=== PATIENT | male | born 1930 ===

== ENCOUNTER 2017-04-07 09:54 | Day surgery (SDC) | payer MEDICARE, SELFPAY ==
[2017-04-03 19:13] VITALS: BMI 16.5
[2017-04-07] MEDS ORDERED: Etomidate 20 mg/10ml Inj IV ONE (11:35)
[2017-04-07] MEDS ORDERED: Lactated Ringer's 1,000 ML IV ONE (11:45)
[2017-04-07] MEDS ORDERED: cefTRIAXone (Rocephin) 1 gm Inj IVPB ONE (13:00)
[2017-04-07 15:47] VITALS: RESP 18
[2017-04-07 17:24] VITALS: BP 145/62; PULSE 75; TEMP 98; O2SAT 99
--- NOTE | 2017-04-21 16:15 | OP ---
PROCEDURE DATE: 04/07/2017 PREOPERATIVE DIAGNOSIS: Urethral stricture. POSTOPERATIVE DIAGNOSIS: Urethral stricture, bladder calculi. PROCEDURE PERFORMED: Cystoscopy with urethral dilatation followed by stone basketing of bladder calc rhea. The patient was placed on the operating room table in dorsal lithotomy position. The area of the mirella in was draped and prepped in a sterile manner. Using a #21 cystoscope, I was able to enter into the urethra atraumatically at the level of the bladder neck. There was a significant stricture which I w as able to dilate with the cystoscope. Once I was able to get beyond this area of stricture, I then reevaluated the bladder and there was noted to be multiple bladder calculi within the bladder. I was able to basket these stones out and they would be sent for specimen analysis. Once the bladder was free of all calculi, it appears that their presence were as a consequence of BPH as well as the ureth ral stricture. Once again, the stones were removed. I removed the cystoscope and inserted a #20 two -way Ignacio catheter for dilatation. The patient was taken from the operating room in good condition. Ge Kay MD cc: 48 TT: 04/21/2017 16:14:25 sn
--- NOTE | 2017-04-21 18:10 | DS ---
The patient came in to the hospital for elective evaluation of a urethral stricture. In the operatin g room he was found to have in addition to the stricture bladder calculi. Both issues were resolved at the time of surgery. The patient came back to recovery, had a Ignacio catheter. He will be dischar ged with the leg bag drainage and he will follow up in my office within 5 days of this discharge for removal of catheter. The patient was given a prescription for Cipro to be taken 500 mg twice a day. Ge Kay MD cc: 48 TT: 04/21/2017 18:10:03 hilda
== END 2017-04-07 17:30 | disposition home or self-care (01) ==
LOC: H.OPSURG 09:54
PROVIDERS: ATTEND Urology
DX: N21.0 Calculus in bladder (principal); M19.90 Unspecified osteoarthritis, unspecified site; I25.110 Atherosclerotic heart disease of native coronary artery with unstable angina pectoris; I11.0 Hypertensive heart disease with heart failure; I50.9 Heart failure, unspecified; E11.9 Type 2 diabetes mellitus without complications; E78.5 Hyperlipidemia, unspecified; E11.51 Type 2 diabetes mellitus with diabetic peripheral angiopathy without gangrene; K21.9 Gastro-esophageal reflux disease without esophagitis
CPT/HCPCS: 52281; 82355; 82365; 82948; 88300; J0696; J2765; J3010; J7120

== ENCOUNTER 2017-05-30 09:52 | Emergency (ER) | payer MEDICARE, SELFPAY ==
[2017-05-30 09:52] VITALS: BMI 16.5
[2017-05-30 10:07] VITALS: PULSE 78; RESP 18
[2017-05-30 11:23] LABS: BASO % 0.8 % (0.0-2.0); EOS # 0.1 K/uL (0.0-0.7); EOS % 1.1 % (0.0-4.0); HEMOGLOBIN 11.5 g/dL (12.0-18.0); LYMPH # 0.4 K/uL (1.0-4.3); LYMPH % 7.7 % (20.0-40.0); MEAN CELL VOLUME 83.7 fl (80.0-94.0); MEAN CORPUSCULAR HEMOGLOBIN 27.4 pg (27.0-31.0); MEAN CORPUSCULAR HGB CONC 32.7 g/dL (33.0-37.0); MEAN PLATELET VOLUME 8.2 fl (7.2-11.7); MONO # 0.4 K/uL (0.0-0.8); MONO % 6.4 % (0.0-10.0); NEUT # 4.6 K/uL (1.8-7.0); PLATELET COUNT 195 K/uL (130-400); RBC 4.18 Mil/uL (4.40-5.90); RED CELL DISTRIBUTION WIDTH 13.6 % (11.5-14.5); WHITE BLOOD COUNT 5.5 K/uL (4.8-10.8)
[2017-05-30 12:27] LABS: ANISOCYTOSIS SLIGHT; BANDS 1 % (0-2); EOSINOPHIL 1 % (0-7); LYMPHOCYTE 12 % (20-50); MONOCYTE 7 % (0-10); NEUTROPHIL 79 % (42-75); PLATELET ESTIMATE NORMAL (NORMAL); TOTAL CELLS COUNTED 100
[2017-05-30 12:28] LABS: OVALOCYTES SLIGHT; POIKILOCYTOSIS SLIGHT
[2017-05-30 13:03] LABS: ALB/GLOB RATIO 1.1 (1.0-2.1); ALT/SGPT 34 U/L (21-72); AST/SGOT 26 U/L (17-59); BLOOD UREA NITROGEN 16 mg/dl (9-20); CALCIUM 8.5 mg/dL (8.4-10.2); GFR AFRICAN-AMERICAN > 60; GFR NON-AFRICAN AMERICAN > 60
[2017-05-30 13:11] LABS: SQUAMOUS EPITHIAL < 1 /hpf (0-5); URINE AMORPHOUS SEDIMENT FEW /ul (<OCC); URINE BACTERIA RARE (<OCC); URINE BILIRUBIN NEGATIVE (NEGATIVE); URINE BLOOD NEGATIVE (NEGATIVE); URINE CLARITY CLOUDY (Clear); URINE COLOR YELLOW (YELLOW); URINE GLUCOSE (UA) >=500 mg/dL (Normal); URINE LEUKOCYTE ESTERASE NEG Leu/uL (Negative); URINE NITRATE NEGATIVE (NEGATIVE); URINE PROTEIN NEGATIVE (NEGATIVE); URINE UROBILINOGEN 0.2-1.0 mg/dL (0.2-1.0)
[2017-05-30] MEDS ORDERED: Sodium Chloride 0.9% 1,000 ML IV STA (15:13)
--- NOTE | 2017-05-30 16:19 | RAD ---
HISTORY: cough COMPARISON: No prior. TECHNIQUE: Chest PA and lateral FINDINGS: LUNGS: The lungs are clear. There is mild interstitial pulmonary edema. PLEURA: No significant pleural effusion identified. No pneumothorax apparent. CARDIOVASCULAR: The heart is normal in size. Status post CABG. OSSEOUS STRUCTURES: There is diffuse bone demineralization and multilevel degenerative changes in the spine. VISUALIZED UPPER ABDOMEN: Normal. OTHER FINDINGS: None. IMPRESSION: No active pulmonary disease.
--- NOTE | 2017-05-30 16:46 | RAD ---
PROCEDURE: Radiographs of the Lumbar Spine. HISTORY: back pain No antecedent history of trauma provided. COMPARISON: No prior. FINDINGS: BONES: Normal alignment. No listhesis. No fracture. DISC SPACES: Multilevel degenerative changes primarily disc space narrowing and non marginal osteophyte formation. OTHER FINDINGS: Peter for calcified IMPRESSION: No acute findings related to/accounting for the clinical presentation.
--- NOTE | 2017-05-30 17:07 | CARD ---
APPROVED REPORT EKG Measurement Heart [id number] 172P17 [id number] <Conclusion> Normal sinus rhythm Nonspecific T wave abnormality Abnormal ECG
--- NOTE | 2017-05-30 18:41 | ED PDOC ---
HPI: General Adult Time Seen by Provider: 05/30/17 10:14 Chief Complaint (Nursing): Lower Extremity Problem/Injury Chief Complaint (Provider): lower extremity pain, difficulty walking History Per: Patient, Pan Operator (Indemand ) History/Exam Limitations: no limitations Onset/Duration Of Symptoms: Days (2+ wks) Current Symptoms Are (Timing): Intermittent Episodes Severity: Moderate Recently: Treated By A Physician Additional Complaint(s): 87yo male multiple medical problems presents w states patient has lower extremity pains and difficulty ambulating, occassional "shaking" of LE or tremors w ambulating. Denies recent fall, trauma or weakness. No fever, no urine symptoms. Does note lower back pain chronic and ongoing. No headache, chest pain or syncope. Past Medical History Reviewed: Historical Data, Nursing Documentation, Vital Signs Vital Signs: Last Vital Signs Temp 98.5 F 05/30/17 10:06 Pulse 78 05/30/17 10:06 Resp 18 05/30/17 10:06 BP 121/63 05/30/17 10:06 Pulse Ox 96 05/30/17 10:06 - Medical History PMH: Arthritis, CAD, CHF, HTN, Hypercholesterolemia Denies: Chronic Kidney Disease - Surgical History Surgical History: CABG, Coronary Stent Denies: Pacemaker Other surgeries: L foot toe amputations - Family History Family History: States: Unknown Family Hx - Living Arrangements Living Arrangements: With Family - Social History Current smoker - smoking cessation education provided: No Alcohol: None - Immunization History Hx Tetanus Toxoid Vaccination: No Hx Influenza Vaccination: Yes Hx Pneumococcal Vaccination: Yes - Home Medications Home Medications: Ambulatory Orders Medication Instructions Recorded Aspirin [Lo-Dose Aspirin EC] 81 mg PO DAILY 04/03/17 Clopidogrel [Plavix] 75 mg PO DAILY 04/03/17 Atorvastatin [Lipitor] 40 mg PO HS 04/07/17 Losartan [Cozaar] 50 mg PO DAILY 04/07/17 Nitroglycerin [Nitrostat] 0.4 mg PO Q5MIN PRN 04/07/17 Ranolazine [Ranexa] 500 mg PO BID 04/07/17 traMADol [Ultram] 50 mg PO TID PRN 04/07/17 Gabapentin [Neurontin] 100 mg PO TID 05/30/17 Multivitamin [Multi-Vitamin Daily] 1 tab PO DAILY 05/30/17 Nebivolol [Bystolic] 10 mg PO DAILY 05/30/17 Oxybutynin [Ditropan Tab] 5 mg PO DAILY 05/30/17 hydroCHLOROthiazide [Hydrodiuril] 25 mg PO DAILY 05/30/17 rOPINIRole [Requip] 1 mg PO TID 05/30/17 - Allergies Allergies/Adverse Reactions: Allergies Allergy/AdvReac Type Severity Reaction Status Date / Time No Known Allergies Allergy Verified 05/30/17 10:12 Review of Systems ROS Statement: Except As Marked, All Systems Reviewed And Found Negative Constitutional: Positive for: Weakness. Negative for: Fever, Chills Cardiovascular: Negative for: Chest Pain, Palpitations Respiratory: Negative for: Cough, Shortness of Breath Gastrointestinal: Negative for: Nausea, Vomiting Genitourinary Male: Negative for: Dysuria, Frequency Musculoskeletal: Positive for: Back Pain, Leg Pain, Foot Pain Skin: Negative for: Rash, Lesions Neurological: Positive for: Dizziness. Negative for: Weakness, Numbness, Headache Psych: Negative for: Anxiety, Depression Physical Exam - Reviewed Nursing Documentation Reviewed: Yes Vital Signs Reviewed: Yes - Physical Exam Appears: Positive for: Non-toxic (elderly appearing, frail), No Acute Distress Head Exam: Positive for: ATRAUMATIC, NORMAL INSPECTION, NORMOCEPHALIC Skin: Positive for: Normal Color, Warm, DRY Eye Exam: Positive for: EOMI, Normal appearance, PERRL ENT: Positive for: Normal ENT Inspection Neck: Positive for: Normal, Painless ROM Cardiovascular/Chest: Positive for: Regular Rate, Rhythm Respiratory: Positive for: CNT, Normal Breath Sounds Pulses-Dorsalis Pedis (L): 1+ Pulses-Dorsalis Pedis (R): 1+ Pulses-Radial (L): 2+ Pulses-Radial (R): 2+ Gastrointestinal/Abdominal: Positive for: Normal Exam, Bowel Sounds, Soft Back: Positive for: Normal Inspection Extremity: Positive for: Normal ROM, Other (L foot toes 4/5 amputated, clean dry intact skin). Negative for: Deformity, Swelling Neurologic/Psych: Positive for: Alert, Oriented, Other (strength b/l upper and lower ext 5/5, coordination slow but intact, gait slow, unsteady'). Negative for: Motor/Sensory Deficits - Laboratory Results Result Diagrams: 05/30/17 11:17 05/30/17 12:30 - ECG O2 Sat by Pulse Oximetry: 96 Medical Decision Making Medical Decision Making: workup initiated for acute on chronic LE pain w gait disturbance. r/o electrolyte abnormality/ metabolic derangement/ ischemia or other diagnosis not listed Labs reviewed mild dehydration and hyponatremia. IVF bolus ordered. LS spine XR no acute disease per radiologist CXR negative for acute process per radiologist. Offered and recommended admission d/w Dr Braun surgeon's assistant medicine case accepted but prefers to take home and followup w PMD friday. Pt is a fall risk, explained to family use walker and may need rehab/ PT. PMD not at [facility] Disposition - Clinical Impression Clinical Impression: Neuropathy, Leg pain, Gait disturbance - Patient ED Disposition Is Patient to be Admitted: No Counseled Patient/Family Regarding: Studies Performed, Diagnosis, Need For Followup, Rx Given - Disposition Disposition: Routine/Home Disposition Time: 15:45 Condition: STABLE
[2017-05-30 19:12] VITALS: BP 132/76; TEMP 98.2; O2SAT 98
== END 2017-05-30 18:50 | disposition home or self-care (01) ==
LOC: H.ER 09:52 → UNDOADMIN 16:59 → H.ERHOLD 16:59
DX: M79.662 Pain in left lower leg (principal); M79.661 Pain in right lower leg; G62.9 Polyneuropathy, unspecified; R26.9 Unspecified abnormalities of gait and mobility
CPT/HCPCS: 71020; 72114; 80053; 81003; 82550; 82948; 84484; 85025; 93005; 96360; 99283; J7040

== ENCOUNTER 2017-06-06 19:12 | Inpatient (IN) | payer MEDICARE ==
[2017-06-06 19:12] VITALS: BMI 16.5
[2017-06-06] MEDS ORDERED: Sodium Chloride 0.9% 1,000 ML IV STA (20:00)
--- NOTE | 2017-06-06 20:15 | ED PDOC ---
HPI: Fever Fever Onset Was: 06/05/17 Did The Patient Have A Seizure Today: No Symptoms Associated With Fever: Cough (dry), Difficulty Feeding/Eating ( decrease in appetite), Other (decrease in activity, body aches) Additional Comments: 87 year old male with a pertinent medical history of diabetes, coronary artery disease, congestive heart failure, and is blind presents to the ED with complaints of a fever that started last night. He reports having associated symptoms of body aches, decrease in activity and appetite, and a dry cough. He denies having shortness of breath, phlegm, and rhinorrhea. 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 - Family History Family History: States: Unknown Family Hx - Social History Current smoker - smoking cessation education provided: No Alcohol: None Drugs: Cannabis - Immunization History Hx Tetanus Toxoid Vaccination: No Hx Influenza Vaccination: Yes Hx Pneumococcal Vaccination: Yes - Home Medications Home Medications: Ambulatory Orders Medication Instructions Recorded Aspirin [Lo-Dose Aspirin EC] 81 mg PO DAILY 04/03/17 Clopidogrel [Plavix] 75 mg PO DAILY 04/03/17 Atorvastatin [Lipitor] 40 mg PO HS 04/07/17 Losartan [Cozaar] 50 mg PO DAILY 04/07/17 Nitroglycerin [Nitrostat] 0.4 mg PO Q5MIN PRN 04/07/17 Ranolazine [Ranexa] 500 mg PO BID 04/07/17 traMADol [Ultram] 50 mg PO TID PRN 04/07/17 Gabapentin [Neurontin] 100 mg PO TID 05/30/17 Multivitamin [Multi-Vitamin Daily] 1 tab PO DAILY 05/30/17 Nebivolol [Bystolic] 10 mg PO DAILY 06/30/17 Oxybutynin [Ditropan Tab] 5 mg PO DAILY 05/30/17 hydroCHLOROthiazide [Hydrodiuril] 25 mg PO DAILY 05/30/17 rOPINIRole [Requip] 1 mg PO TID 05/30/17 - Allergies Allergies/Adverse Reactions: Allergies Allergy/AdvReac Type Severity Reaction Status Date / Time No Known Allergies Allergy Verified 05/30/17 10:12 Review of Systems ROS Statement: Except As Marked, All Systems Reviewed And Found Negative Constitutional: Positive for: Fever, Other (bodyaches, decrease in appetite, decrease in activity) ENT: Negative for: Nose Discharge Respiratory: Positive for: Cough (dry). Negative for: Shortness of Breath, Sputum Physical Exam - Reviewed Nursing Documentation Reviewed: Yes Vital Signs Reviewed: Yes - Physical Exam Appears: Positive for: Non-toxic, No Acute Distress. Negative for: Well (tired appearing, febrile, chronically ill.) Head Exam: Positive for: ATRAUMATIC, NORMOCEPHALIC Skin: Positive for: Normal Color, Warm, Dry Eye Exam: Positive for: Normal appearance ENT: Positive for: Pharynx Is (clear), Other (dry mucous membranes) Neck: Positive for: Normal Cardiovascular/Chest: Positive for: Tachycardia (regular rhythm). Negative for : Murmur Respiratory: Positive for: Normal Breath Sounds. Negative for: Respiratory Distress Gastrointestinal/Abdominal: Positive for: Normal Exam, Soft. Negative for: Tenderness Extremity: Positive for: Other (mild diffuse stiffness). Negative for: Swelling Neurologic/Psych: Positive for: Alert, Oriented (3x). Negative for: Motor/ Sensory Deficits (except patient is blind.) - Laboratory Results Result Diagrams: 06/06/17 20:05 06/06/17 20:05 - ECG O2 Sat by Pulse Oximetry: 98 (RA) Pulse Ox Interpretation: Normal Medical Decision Making Medical Decision Makin:37 Initial impression: 87 year old male with a fever. Differential diagnoses include but are not limited to pneumonia, urinary tract infection, sepsis, dehydration, electrolyte imbalance, and bacteremia. Initial plan: * XRay chest portable * urine * bloodwork * EKG * IV NS 1,000ml IV 1,000mls/hr * toradol 15mg IV * tylenol 975mg PO * reevaluation Reviewed previous visit: Seen for leg weakness and found to be hyponatremic. Hospitalization was recommended at that time but declined. Has not followed up yet. Labs demonstrated worsenind hyponatremia. No obvious pneumonia or UTI. DW Dr Jarquin Med Service and broad spectrum antibiotics started pending cultures. Admitted to Dr Jarquin Scribe Attestation: Documented by Misa Mayfield, acting as a scribe for Katerina Oreilly MD. Provider Scribe Attestation: All medical record entries made by the Scribe were at my direction and personally dictated by me. I have reviewed the chart and agree that the record accurately reflects my personal performance of the history, physical exam, medical decision making, and the department course for this patient. I have also personally directed, reviewed, and agree with the discharge instructions and disposition. Disposition - Clinical Impression Clinical Impression: Hyponatremia, Fever in adult, Diabetes mellitus, Leg pain Counseled Patient/Family Regarding: Studies Performed, Diagnosis - Disposition Disposition Time: 22:00 Condition: SERIOUS - Pt Status Changed To: Hospital Disposition Of: Inpatient - Admit Certification Admit to Inpatient:: After my assessment, the patient will require hospitalization for at least two midnights. This is because of the severity of symptoms shown, intensity of services needed, and/or the medical risk in this patient being treated as an outpatient. - POA Present On Arrival: Falls Or Trauma, Poor Glycemic Control
[2017-06-06 20:18] LABS: VENOUS BLOOD GAS BASE EXCESS 4.4 mmol/L (0.0-2.0); VENOUS BLOOD GAS PCO2 30 mmHg (40-60); VENOUS BLOOD GAS PO2 38 mm/Hg (30-55); VENOUS BLOOD PH 7.55 (7.32-7.43)
[2017-06-06 20:21] LABS: BASO % 0.3 % (0.0-2.0); HEMOGLOBIN 12.3 g/dL (12.0-18.0); LYMPH # 0.3 K/uL (1.0-4.3); LYMPH % 3.5 % (20.0-40.0); MEAN CELL VOLUME 82.4 fl (80.0-94.0); MEAN CORPUSCULAR HEMOGLOBIN 27.3 pg (27.0-31.0); MEAN CORPUSCULAR HGB CONC 33.1 g/dL (33.0-37.0); MONO # 0.8 K/uL (0.0-0.8); MONO % 7.9 % (0.0-10.0); NEUT # 8.5 K/uL (1.8-7.0); NEUT % 88.3 % (50.0-75.0); PLATELET COUNT 254 K/uL (130-400); RED CELL DISTRIBUTION WIDTH 13.6 % (11.5-14.5); WHITE BLOOD COUNT 9.6 K/uL (4.8-10.8)
[2017-06-06 20:39] LABS: ALBUMIN 3.3 g/dL (3.5-5.0); ALT/SGPT 44 U/L (21-72); AST/SGOT 41 U/L (17-59); BLOOD UREA NITROGEN 11 mg/dl (9-20); CALCIUM 8.4 mg/dL (8.4-10.2); GFR AFRICAN-AMERICAN > 60; GFR NON-AFRICAN AMERICAN > 60; MAGNESIUM 1.5 MG/DL (1.6-2.3)
[2017-06-06 20:56] LABS: INR 1.3 (0.9-1.2); PARTIAL THROMBOPLASTIN TIME 30.6 Seconds (25.6-37.1); PROTHROMBIN TIME 14.6 Seconds (9.8-13.1)
[2017-06-06 21:42] LABS: LYMPHOCYTE 1 % (20-50); MONOCYTE 6 % (0-10); NEUTROPHIL 93 % (42-75); TOTAL CELLS COUNTED 100
[2017-06-06 21:43] LABS: PLATELET ESTIMATE NORMAL (NORMAL)
[2017-06-06] MEDS ORDERED: cefTRIAXone (Rocephin) 1 gm Inj ONE (22:56)
[2017-06-06 23:29] LABS: VENOUS BLOOD GAS BASE EXCESS 0.7 mmol/L (0.0-2.0); VENOUS BLOOD GAS PCO2 35 mmHg (40-60); VENOUS BLOOD GAS PO2 62 mm/Hg (30-55); VENOUS BLOOD PH 7.45 (7.32-7.43)
[2017-06-07 00:23] LABS: URINE BILIRUBIN NEGATIVE (NEGATIVE); URINE CLARITY SLIGHTY-CLOUDY (Clear); URINE COLOR YELLOW (YELLOW); URINE GLUCOSE (UA) 150 mg/dL (Normal)
[2017-06-07 00:24] LABS: SQUAMOUS EPITHIAL < 1 /hpf (0-5); URINE BACTERIA RARE (<OCC); URINE BLOOD NEGATIVE (NEGATIVE); URINE LEUKOCYTE ESTERASE NEG Leu/uL (Negative); URINE NITRATE NEGATIVE (NEGATIVE); URINE PROTEIN 30 mg/dL (NEGATIVE); URINE UROBILINOGEN 0.2-1.0 mg/dL (0.2-1.0)
[2017-06-07] MEDS: Sodium Chloride 0.9% 1,000 ML IV SCH ×3 (03:05→23:50)
[2017-06-07 07:54] LABS: HEMOGLOBIN 10.9 g/dL (12.0-18.0); MEAN CELL VOLUME 83.3 fl (80.0-94.0); MEAN CORPUSCULAR HGB CONC 32.4 g/dL (33.0-37.0); RBC 4.02 Mil/uL (4.40-5.90); RED CELL DISTRIBUTION WIDTH 13.3 % (11.5-14.5)
[2017-06-07 08:29] LABS: BLOOD UREA NITROGEN 11 mg/dl (9-20); CALCIUM 7.9 mg/dL (8.4-10.2); GFR AFRICAN-AMERICAN > 60; GFR NON-AFRICAN AMERICAN > 60
[2017-06-07] MEDS: Multivitamin With Minerals Tab PO SCH (08:34)
[2017-06-07] MEDS ORDERED: Enoxaparin 40 mg Syringe SC SCH (09:00)
[2017-06-07] MEDS ORDERED: Patient's Own Med (Multivitamin [Multi-Vitamin Daily] 1 TAB) PO SCH (09:00)
--- NOTE | 2017-06-07 09:45 | CARD ---
APPROVED REPORT EKG Measurement Heart [id number] NH 150P14 [id number] <Conclusion> Normal sinus rhythm Nonspecific T wave abnormality Abnormal ECG
--- NOTE | 2017-06-07 09:51 | CP.PCM.HP ---
History of Present Illness - History of Present Illness History of Present Illness: 87 YR OLD MALE ADMITTED WITH FEVER AND BODYACHES X 1 DAY SYMPTOMS HAVE IMPROVED FOLLOWING IV ANTIBIOTIC RX C/O SEVERE CHRONIC BACK PAINS DENIES COUGH,CHEST PAINS OR SOB HX OF HYPONATREMIA/DM/CAD/CHF/HTN/HYPERLIPIDEMIA/CHRONIC BACK PAIN/ARTHRITIS/S/ P CABG AND CARDIAC STENTS Present on Admission - Present on Admission Any Indicators Present on Admission: No History of DVT/PE: No History of Uncontrolled Diabetes: No Urinary Catheter: No Decubitus Ulcer Present: No History Surgical Site Infection Following: CABG - Mediastinitis Past Patient History - Infectious Disease Hx of Infectious Diseases: None - Tetanus Immunizations Tetanus Immunization: Unknown - Past Medical History & Family History Past Medical History?: Yes - Past Social History Smoking Status: Never Smoked - CARDIAC Hx Cardiac Disorders: Yes - PULMONARY Hx Respiratory Disorders: Yes - NEUROLOGICAL Hx Neurological Disorder: No - HEENT Hx HEENT Problems: No - RENAL Hx Chronic Kidney Disease: No - ENDOCRINE/METABOLIC Hx Endocrine Disorders: Yes - HEMATOLOGICAL/ONCOLOGICAL Hx Blood Disorders: No - INTEGUMENTARY Hx Dermatological Problems: No - MUSCULOSKELETAL/RHEUMATOLOGICAL Hx Musculoskeletal Disorders: Yes - GASTROINTESTINAL Hx Gastrointestinal Disorders: No Hx Gastroesophageal Reflux: Yes - GENITOURINARY/GYNECOLOGICAL Hx Genitourinary Disorders: Yes - PSYCHIATRIC Hx Psychophysiologic Disorder: No - SURGICAL HISTORY Hx Coronary Artery Bypass Graft: Yes Hx Coronary Stent: Yes - ANESTHESIA Hx Anesthesia: No Hx Anesthesia Reactions: No Hx Malignant Hyperthermia: No Meds Allergies/Adverse Reactions: Allergies Allergy/AdvReac Type Severity Reaction Status Date / Time No Known Allergies Allergy Verified 05/30/17 10:12 Physical Exam - Constitutional Appears: Chronically Ill - Head Exam Head Exam: ATRAUMATIC, NORMAL INSPECTION, NORMOCEPHALIC - Eye Exam Eye Exam: EOMI, Normal appearance, PERRL Pupil Exam: NORMAL ACCOMODATION, PERRL - ENT Exam ENT Exam: Mucous Membranes Moist, Normal Exam - Neck Exam Neck exam: Positive for: Normal Inspection - Respiratory Exam Respiratory Exam: Clear to Auscultation Bilateral, NORMAL BREATHING PATTERN - Cardiovascular Exam Cardiovascular Exam: REGULAR RHYTHM - GI/Abdominal Exam GI & Abdominal Exam: Normal Bowel Sounds, Soft. absent: Tenderness - Rectal Exam Rectal Exam: NORMAL INSPECTION - Back Exam Back exam: NORMAL INSPECTION - Neurological Exam Neurological exam: Alert, CN II-XII Intact, Oriented x3, Reflexes Normal - Psychiatric Exam Psychiatric exam: Normal Affect, Normal Mood - Skin Skin Exam: Dry, Intact, Normal Color, Warm Results - Vital Signs Recent Vital Signs: Last Vital Signs Temp 98.3 F 06/07/17 08:00 Pulse 83 06/07/17 08:34 Resp 18 06/07/17 08:00 BP 117/52 L 06/07/17 08:34 Pulse Ox 100 06/07/17 08:00 - Labs Result Diagrams: 06/07/17 06:30 06/07/17 06:30 Labs: Laboratory Results - last 24 hr 06/06/17 06/06/17 06/07/17 22:47 23:23 06:30 WBC 11.0 H RBC 4.02 L Hgb 10.9 L Hct 33.5 L MCV 83.3 MCH 27.0 MCHC 32.4 L RDW 13.3 Plt Count 221 pO2 62 H VBG pH 7.45 H VBG pCO2 35 L VBG HCO3 25.3 VBG Total CO2 25.4 VBG O2 Sat (Calc) 97.5 H VBG Base Excess 0.7 VBG Potassium 3.9 Sodium 125.0 L Chloride 96.0 L Glucose 218 H Lactate 0.9 FiO2 21.0 Potassium Carbon Dioxide Anion Gap BUN Creatinine Est GFR ( Amer) Est GFR (Non-Af Amer) Random Glucose Calcium Venous Blood Potassium 3.9 Urine Color Yellow Urine Clarity Slighty-cloudy Urine pH 7.0 Ur Specific [place] 1.010 Urine Protein 30 Urine Glucose (UA) 150 Urine Ketones Trace Urine Blood Negative Urine Nitrate Negative Urine Bilirubin Negative Urine Urobilinogen 0.2-1.0 Ur Leukocyte Esterase Neg Urine RBC (Auto) 11 H Urine Microscopic WBC 4 Ur Squamous Epith Cells < 1 Urine Bacteria Rare 06/07/17 06:30 WBC RBC Hgb Hct MCV MCH MCHC RDW Plt Count pO2 VBG pH VBG pCO2 VBG HCO3 VBG Total CO2 VBG O2 Sat (Calc) VBG Base Excess VBG Potassium Sodium 129 L Chloride 101 Glucose Lactate FiO2 Potassium 4.1 Carbon Dioxide 23 Anion Gap 9 L BUN 11 Creatinine 0.8 Est GFR ( Amer) > 60 Est GFR (Non-Af Amer) > 60 Random Glucose 161 H Calcium 7.9 L Venous Blood Potassium Urine Color Urine Clarity Urine pH Ur Specific [place] Urine Protein Urine Glucose (UA) Urine Ketones Urine Blood Urine Nitrate Urine Bilirubin Urine Urobilinogen Ur Leukocyte Esterase Urine RBC (Auto) Urine Microscopic WBC Ur Squamous Epith Cells Urine Bacteria Assessment & Plan - Assessment and Plan (Free Text) Assessment: FEVER-?ETIOLOGY-R/O UTI/PNEUMONIA ASHD S/P CABG ARTHRITIS HTN HYPERLIPIDEMIA Plan: SEPTIC WORKUP IV ANTIBIOTICS ANALGESICS FOR PAIN
--- NOTE | 2017-06-07 12:30 | RAD ---
HISTORY: Sepsis Patient COMPARISON: Comparison chest 05/30/2017 FINDINGS: LUNGS: Poor inspiration with low lung volumes, mild crowded bronchovascular markings and mild bibasilar atelectasis. PLEURA: No significant pleural effusion identified, no pneumothorax apparent. CARDIOVASCULAR: Sternotomy wires and CABG clips again noted. Aorta is slightly ectatic and uncoiled. OSSEOUS STRUCTURES: Mild multilevel degenerative spondylosis of the thoracic spine. Mild degenerative changes of both shoulder girdles. VISUALIZED UPPER ABDOMEN: Normal. OTHER FINDINGS: None. IMPRESSION: Poor inspiration with low lung volumes, mild crowded bronchovascular markings and mild bibasilar atelectasis.
[2017-06-08 07:30] LABS: HEMOGLOBIN 10.2 g/dL (12.0-18.0); MEAN CELL VOLUME 83.2 fl (80.0-94.0); MEAN CORPUSCULAR HEMOGLOBIN 27.1 pg (27.0-31.0); MEAN CORPUSCULAR HGB CONC 32.6 g/dL (33.0-37.0); RBC 3.75 Mil/uL (4.40-5.90); RED CELL DISTRIBUTION WIDTH 13.6 % (11.5-14.5); WHITE BLOOD COUNT 8.8 K/uL (4.8-10.8)
[2017-06-08 07:44] LABS: ALB/GLOB RATIO 0.8 (1.0-2.1); ALBUMIN 2.3 g/dL (3.5-5.0); ALT/SGPT 36 U/L (21-72); AST/SGOT 37 U/L (17-59); BLOOD UREA NITROGEN 9 mg/dl (9-20); CALCIUM 7.6 mg/dL (8.4-10.2); GFR AFRICAN-AMERICAN > 60; GFR NON-AFRICAN AMERICAN > 60
[2017-06-08] MEDS: Multivitamin With Minerals Tab PO SCH (08:31)
--- NOTE | 2017-06-08 11:04 | CP.PCM.PN ---
Subjective - Date & Time of Evaluation Date of Evaluation: 06/08/17 Time of Evaluation: 11:04 - Subjective Subjective: FEELS BETTER EXCEPT FOR CHRONIC BACK PAIN NO RECURRENCE OF FEVER ALL SEPTIC WORKUP SO FAR NON-REVEALING Objective - Vital Signs/Intake and Output Vital Signs (last 24 hours): Temp Pulse Resp BP Pulse Ox 97.7 F 74 20 121/68 100 06/08/17 08:00 06/08/17 09:00 06/08/17 08:00 06/08/17 08:32 06/08/17 08:00 - Medications Medications: Current Medications Acetaminophen (Tylenol 325mg Tab) 975 mg PO ONCE PRN PRN Reason: Fever >100.4 F Last Admin: 06/06/17 20:57 Dose: 975 mg Acetaminophen (Tylenol 325mg Tab) 650 mg PO Q4 PRN PRN Reason: Other Last Admin: 06/07/17 04:22 Dose: 650 mg Aspirin (Ecotrin) 81 mg PO DAILY [facility] Last Admin: 06/08/17 08:32 Dose: 81 mg Clopidogrel Bisulfate (Plavix) 75 mg PO DAILY [facility] Last Admin: 06/08/17 08:31 Dose: 75 mg Gabapentin (Neurontin) 100 mg PO TID [facility] Last Admin: 06/08/17 08:32 Dose: 100 mg Home Med (Ropinirole [Requip]) 1 mg PO TID [facility] Ceftriaxone Sodium 1 gm/ (Sodium Chloride) 100 mls @ 100 mls/hr IVPB DAILY [facility] Last Admin: 06/08/17 08:31 Dose: 100 mls/hr Losartan Potassium (Cozaar) 50 mg PO DAILY [facility] Last Admin: 06/08/17 08:31 Dose: 50 mg Metoprolol Tartrate (Lopressor) 25 mg PO DAILY [facility] Last Admin: 06/08/17 08:32 Dose: 25 mg Multivitamins/Minerals (Therapeutic-M Tab) 1 tab PO DAILY [facility] Last Admin: 06/08/17 08:31 Dose: 1 tab Oxybutynin Chloride (Ditropan Tab) 5 mg PO DAILY [facility] Last Admin: 06/08/17 08:32 Dose: 5 mg Sitagliptin Phosphate (Januvia) 100 mg PO DAILY [facility] Last Admin: 06/08/17 08:32 Dose: 100 mg Tramadol HCl (Ultram) 50 mg PO TID PRN PRN Reason: Pain, moderate (4-7) Last Admin: 06/07/17 11:23 Dose: 50 mg - Labs Labs: 06/08/17 06:30 06/08/17 06:30 PT 14.6 Seconds (9.8-13.1) H 06/06/17 20:05 INR 1.3 (0.9-1.2) H 06/06/17 20:05 APTT 30.6 Seconds (25.6-37.1) 06/06/17 20:05 - Constitutional Appears: Chronically Ill - Head Exam Head Exam: ATRAUMATIC, NORMAL INSPECTION, NORMOCEPHALIC - Eye Exam Eye Exam: EOMI, Normal appearance, PERRL Pupil Exam: NORMAL ACCOMODATION, PERRL - ENT Exam ENT Exam: Mucous Membranes Moist, Normal Exam - Neck Exam Neck Exam: Full ROM, Normal Inspection. absent: Lymphadenopathy - Respiratory Exam Respiratory Exam: Clear to Ausculation Bilateral, NORMAL BREATHING PATTERN - Cardiovascular Exam Cardiovascular Exam: REGULAR RHYTHM, +S1, +S2. absent: Murmur - GI/Abdominal Exam GI & Abdominal Exam: Soft, Normal Bowel Sounds. absent: Tenderness - Rectal Exam Rectal Exam: NORMAL INSPECTION - Extremities Exam Extremities Exam: Full ROM, Normal Capillary Refill, Tenderness. absent: Joint Swelling, Pedal Edema - Back Exam Back Exam: NORMAL INSPECTION - Neurological Exam Neurological Exam: Alert, Awake, CN II-XII Intact, Normal Gait, Oriented x3 - Psychiatric Exam Psychiatric exam: Normal Affect, Normal Mood - Skin Skin Exam: Dry, Intact, Normal Color, Warm Assessment and Plan - Assessment and Plan (Free Text) Assessment: FEVER-?ETIOLOGY ARTHRITIS Plan: FAMILY REQUESTS SUBACUTE CARE WILL REQUEST PT AND EXPLOSIVE OPERATOR SUPERVISOR EVAL
[2017-06-09 00:37] VITALS: RESP 18
--- NOTE | 2017-06-09 08:33 | CP.PCM.PN ---
Subjective - Date & Time of Evaluation Date of Evaluation: 06/09/17 Time of Evaluation: 08:33 - Subjective Subjective: AFEBRILE NO CHEST PAINS/SOB STILL HAS BACK PAINS Objective - Vital Signs/Intake and Output Vital Signs (last 24 hours): Temp Pulse Resp BP Pulse Ox 97.5 F L 76 18 120/60 97 06/09/17 05:00 06/09/17 05:00 06/09/17 05:00 06/09/17 05:00 06/09/17 05:00 - Medications Medications: Current Medications Acetaminophen (Tylenol 325mg Tab) 975 mg PO ONCE PRN PRN Reason: Fever >100.4 F Last Admin: 06/06/17 20:57 Dose: 975 mg Acetaminophen (Tylenol 325mg Tab) 650 mg PO Q4 PRN PRN Reason: Other Last Admin: 06/07/17 04:22 Dose: 650 mg Aspirin (Ecotrin) 81 mg PO DAILY [facility] Last Admin: 06/08/17 08:32 Dose: 81 mg Clopidogrel Bisulfate (Plavix) 75 mg PO DAILY [facility] Last Admin: 06/08/17 08:31 Dose: 75 mg Gabapentin (Neurontin) 100 mg PO TID [facility] Last Admin: 06/08/17 16:27 Dose: 100 mg Home Med (Ropinirole [Requip]) 1 mg PO TID [facility] Ceftriaxone Sodium 1 gm/ (Sodium Chloride) 100 mls @ 100 mls/hr IVPB DAILY [facility] Last Admin: 06/08/17 08:31 Dose: 100 mls/hr Losartan Potassium (Cozaar) 50 mg PO DAILY [facility] Last Admin: 06/08/17 08:31 Dose: 50 mg Metoprolol Tartrate (Lopressor) 25 mg PO DAILY [facility] Last Admin: 06/08/17 08:32 Dose: 25 mg Multivitamins/Minerals (Therapeutic-M Tab) 1 tab PO DAILY [facility] Last Admin: 06/08/17 08:31 Dose: 1 tab Oxybutynin Chloride (Ditropan Tab) 5 mg PO DAILY [facility] Last Admin: 06/08/17 08:32 Dose: 5 mg Sitagliptin Phosphate (Januvia) 100 mg PO DAILY [facility] Last Admin: 06/08/17 08:32 Dose: 100 mg Tramadol HCl (Ultram) 50 mg PO TID PRN PRN Reason: Pain, moderate (4-7) Last Admin: 06/07/17 11:23 Dose: 50 mg - Labs Labs: 06/08/17 06:30 06/08/17 06:30 PT 14.6 Seconds (9.8-13.1) H 06/06/17 20:05 INR 1.3 (0.9-1.2) H 06/06/17 20:05 APTT 30.6 Seconds (25.6-37.1) 06/06/17 20:05 - Constitutional Appears: Chronically Ill - Head Exam Head Exam: ATRAUMATIC, NORMAL INSPECTION, NORMOCEPHALIC - Eye Exam Eye Exam: EOMI, Normal appearance, PERRL Pupil Exam: NORMAL ACCOMODATION, PERRL - ENT Exam ENT Exam: Mucous Membranes Moist, Normal Exam - Neck Exam Neck Exam: Full ROM, Normal Inspection. absent: Lymphadenopathy - Respiratory Exam Respiratory Exam: Clear to Ausculation Bilateral, NORMAL BREATHING PATTERN - Cardiovascular Exam Cardiovascular Exam: REGULAR RHYTHM, +S1, +S2. absent: Murmur - GI/Abdominal Exam GI & Abdominal Exam: Soft, Normal Bowel Sounds. absent: Tenderness - Rectal Exam Rectal Exam: NORMAL INSPECTION - Extremities Exam Extremities Exam: Full ROM, Normal Capillary Refill. absent: Joint Swelling, Pedal Edema Additional comments: ARTHRITIS CHANGES - Back Exam Back Exam: tenderness - Neurological Exam Neurological Exam: Alert, Awake, CN II-XII Intact, Oriented x3 - Psychiatric Exam Psychiatric exam: Anxious, Normal Mood - Skin Skin Exam: Dry, Intact, Normal Color, Warm Assessment and Plan - Assessment and Plan (Free Text) Assessment: FEVER DUE TO UTI[GM+COCCI] ARTHRITIS Plan: CONTINUE IV ANTIBIOTIC RX BLADDER TRIMMER FOR SUBACUTE CARE PLACEMENT
[2017-06-09] MEDS: Multivitamin With Minerals Tab PO SCH (09:01)
[2017-06-09 11:27] VITALS: O2SAT 97
--- NOTE | 2017-06-09 13:30 | PQF CHF ---
This form is a permanent part of the medical record 06/09/17 Dr. Jarquin, Please specify the type and acuity of heart failure in your progress notes: Documentation of a history of HTN and CHF. medication includes Cozaar and Lopressor Clarification of your documentation is requested to better reflect the severity of illness and intensity of treatment of your patient. Indicators present [x] Diagnosis of a history of CHF [] BNP > 200 [] Imaging Finding of Pulmonary Edema /Pleural Effusions [] Fluid/Volume Overload [] Pitting edema [] Ejection Fraction < 40% (Indicative of Systolic Heart Failure) [] Ejection Fraction > 40% (Indicative of Diastolic Heart Failure) [] Dyspnea / Orthopenea / Paroxysmal Nocturnal Dyspnea [] Other: Location in the medical record that reflects the above clinical findings: [] Treatment Provided: [] PHYSICIAN'S RESPONSE Based on your medical judgment of the clinical indicators outlined above, are you treating this patient for a known or suspected: [] Acute CHF [] Systolic [] Diastolic [] Combined [] Chronic CHF [] Systolic [] Diastolic [] Combined [] Acute on Chronic CHF []Systolic [] Diastolic [] Combined [] CHF due hypertension [] Acute systolic []Chronic systolic [] Acute/ chronic systolic [] Other, please indicate: [] [] If Unable to Determine, please check the box, sign and date. Present On Admission (POA) Indicator: [] Present at the time of admission [] Not present at the time of admission [] Clinically Undetermined In responding to this query, please exercise your independent professional judgment. The fact that a question is asked does not imply that any particular answer is desired or expected. Thank you for your clarification on this documentation. If you have any questions please call:ext [phone] * Thank you, Leyda Rivera RN CDMP [facility]
[2017-06-09 15:40] VITALS: BP 125/67; PULSE 76; TEMP 97.4
--- NOTE | 2017-06-11 08:37 | CP.PCM.DIS ---
Provider - Provider Date of Admission: 06/06/17 22:46 Attending physician: Chema Jarquin MD Time Spent in preparation of Discharge (in minutes): 30 Diagnosis - Discharge Diagnosis (1) Urinary tract infection Status: Acute (2) CAD (coronary artery disease) Status: Acute (3) DVT prophylaxis Status: Acute (4) Diabetes mellitus Status: Acute (5) Fever in adult Status: Acute (6) Gait disturbance Status: Acute (7) Hypercholesteremia Status: Acute (8) Hypertension Status: Acute (9) Neuropathy Status: Acute Hospital Course - Lab Results Lab Results: Most Recent Lab Values WBC 8.8 K/uL (4.8-10.8) 06/08/17 06:30 RBC 3.75 Mil/uL (4.40-5.90) L 06/08/17 06:30 Hgb 10.2 g/dL (12.0-18.0) L 06/08/17 06:30 Hct 31.2 % (35.0-51.0) L 06/08/17 06:30 MCV 83.2 fl (80.0-94.0) 06/08/17 06:30 MCH 27.1 pg (27.0-31.0) 06/08/17 06:30 MCHC 32.6 g/dL (33.0-37.0) L 06/08/17 06:30 RDW 13.6 % (11.5-14.5) 06/08/17 06:30 Plt Count 239 K/uL (130-400) 06/08/17 06:30 MPV 8.0 fl (7.2-11.7) 06/06/17 20:05 Neut % (Auto) 88.3 % (50.0-75.0) H 06/06/17 20:05 Lymph % (Auto) 3.5 % (20.0-40.0) L 06/06/17 20:05 [place] % (Auto) 7.9 % (0.0-10.0) 06/06/17 20:05 Eos % (Auto) 0.0 % (0.0-4.0) 06/06/17 20:05 Baso % (Auto) 0.3 % (0.0-2.0) 06/06/17 20:05 Neut # 8.5 K/uL (1.8-7.0) H 06/06/17 20:05 Lymph # 0.3 K/uL (1.0-4.3) L 06/06/17 20:05 [place] # 0.8 K/uL (0.0-0.8) 06/06/17 20:05 Eos # 0.0 K/uL (0.0-0.7) 06/06/17 20:05 Baso # 0.0 K/uL (0.0-0.2) 06/06/17 20:05 Neutrophils % (Manual) 93 % (42-75) H 06/06/17 20:05 Lymphocytes % (Manual) 1 % (20-50) L 06/06/17 20:05 Monocytes % (Manual) 6 % (0-10) 06/06/17 20:05 Platelet Estimate Normal (NORMAL) 06/06/17 20:05 PT 14.6 Seconds (9.8-13.1) H 06/06/17 20:05 INR 1.3 (0.9-1.2) H 06/06/17 20:05 APTT 30.6 Seconds (25.6-37.1) 06/06/17 20:05 pO2 62 mm/Hg (30-55) H 06/06/17 23:23 VBG pH 7.45 (7.32-7.43) H 06/06/17 23:23 VBG pCO2 35 mmHg (40-60) L 06/06/17 23:23 VBG HCO3 25.3 mmol/L 06/06/17 23:23 VBG Total CO2 25.4 mmol/L (22-28) 06/06/17 23:23 VBG O2 Sat (Calc) 97.5 % (40-65) H 06/06/17 23:23 VBG Base Excess 0.7 mmol/L (0.0-2.0) 06/06/17 23:23 VBG Potassium 3.9 mmol/L (3.6-5.2) 06/06/17 23:23 Sodium 125.0 mmol/L (132-148) L 06/06/17 23:23 Chloride 96.0 mmol/L (98-107) L 06/06/17 23:23 Glucose 218 mg/dL (75-110) H 06/06/17 23:23 Lactate 0.9 mmol/L (0.7-2.1) 06/06/17 23:23 FiO2 21.0 % 06/06/17 23:23 Sodium 132 mmol/l (132-148) 06/08/17 06:30 Potassium 3.9 MMOL/L (3.6-5.0) 06/08/17 06:30 Chloride 102 mmol/L (98-107) 06/08/17 06:30 Carbon Dioxide 25 mmol/L (22-30) 06/08/17 06:30 Anion Gap 9 (10-20) L 06/08/17 06:30 BUN 9 mg/dl (9-20) 06/08/17 06:30 Creatinine 0.8 mg/dL (0.8-1.5) 06/08/17 06:30 Est GFR ( Amer) > 60 06/08/17 06:30 Est GFR (Non-Af Amer) > 60 06/08/17 06:30 POC Glucose (mg/dL) 288 mg/dL (65-110) H 06/09/17 11:35 Random Glucose 96 mg/dL (75-110) 06/08/17 06:30 Calcium 7.6 mg/dL (8.4-10.2) L 06/08/17 06:30 Phosphorus 2.3 mg/dl (2.5-4.5) L 06/06/17 20:05 Magnesium 1.5 MG/DL (1.6-2.3) L 06/06/17 20:05 Total Bilirubin 0.2 mg/dl (0.2-1.3) 06/08/17 06:30 AST 37 U/L (17-59) 06/08/17 06:30 ALT 36 U/L (21-72) 06/08/17 06:30 Alkaline Phosphatase 78 U/L (38-126) 06/08/17 06:30 Troponin I < 0.0120 ng/mL (0.00-0.120) 06/06/17 20:05 Total Protein 5.2 G/DL (6.3-8.2) L 06/08/17 06:30 Albumin 2.3 g/dL (3.5-5.0) L D 06/08/17 06:30 Globulin 2.8 gm/dL (2.2-3.9) 06/08/17 06:30 Albumin/Globulin Ratio 0.8 (1.0-2.1) L 06/08/17 06:30 Venous Blood Potassium 3.9 mmol/L (3.6-5.2) 06/06/17 23:23 Urine Color Yellow (YELLOW) 06/06/17 22:47 Urine Clarity Slighty-cloudy (Clear) 06/06/17 22:47 Urine pH 7.0 (5.0-8.0) 06/06/17 22:47 Ur Specific [place] 1.010 (1.003-1.030) 06/06/17 22:47 Urine Protein 30 mg/dL (NEGATIVE) 06/06/17 22:47 Urine Glucose (UA) 150 mg/dL (Normal) 06/06/17 22:47 Urine Ketones Trace mg/dL (NEGATIVE) 06/06/17 22:47 Urine Blood Negative (NEGATIVE) 06/06/17 22:47 Urine Nitrate Negative (NEGATIVE) 06/06/17 22:47 Urine Bilirubin Negative (NEGATIVE) 06/06/17 22:47 Urine Urobilinogen 0.2-1.0 mg/dL (0.2-1.0) 06/06/17 22:47 Ur Leukocyte Esterase Neg [place]ana/uL (Negative) 06/06/17 22:47 Urine RBC (Auto) 11 /hpf (0-3) H 06/06/17 22:47 Urine Microscopic WBC 4 /hpf (0-5) 06/06/17 22:47 Ur Squamous Epith Cells < 1 /hpf (0-5) 06/06/17 22:47 Urine Bacteria Rare (<OCC) 06/06/17 22:47 - Hospital Course Hospital Course: FEVER RESOLVED STILL HAS BACK PAIN URINE CULTURE POSITIVE Discharge Exam - Head Exam Head Exam: ATRAUMATIC, NORMAL INSPECTION, NORMOCEPHALIC - Eye Exam Eye Exam: EOMI, Normal appearance, PERRL Pupil Exam: NORMAL ACCOMODATION, PERRL - GI/Abdominal Exam GI & Abdominal Exam: Normal Bowel Sounds - Rectal Exam Rectal Exam: NORMAL INSPECTION - Back Exam Back exam: tenderness - Neurological Exam Neurological exam: Abnormal Gait, Alert, CN II-XII Intact, Oriented x3, Reflexes Normal - Psychiatric Exam Psychiatric exam: Normal Affect, Normal Mood - Skin Skin Exam: Dry, Intact, Normal Color, Warm Discharge Plan - Discharge Medications Prescriptions: Ciprofloxacin [Cipro] 500 mg PO Q12 #14 tab - Follow Up Plan Condition: SERIOUS Disposition: TRANSF TO SNF Patient education suggested?: Yes Additional Instructions: TRANSFER TO SUBACUTE CARE
== END 2017-06-09 15:30 | DRG 690 ==
LOC: H.ER 19:12 → H.ERHOLD 22:46 → H.TEL 06-07 00:40
PROVIDERS: ADMIT Internal Medicine Pulmonary Disease; ATTEND Internal Medicine Pulmonary Disease
DX: N39.0 Urinary tract infection, site not specified (principal); E11.9 Type 2 diabetes mellitus without complications; I11.0 Hypertensive heart disease with heart failure; I50.9 Heart failure, unspecified; E87.1 Hypo-osmolality and hyponatremia; B95.2 Enterococcus as the cause of diseases classified elsewhere; E78.5 Hyperlipidemia, unspecified; G89.29 Other chronic pain; I25.10 Atherosclerotic heart disease of native coronary artery without angina pectoris; Z95.1 Presence of aortocoronary bypass graft; E78.00 Pure hypercholesterolemia, unspecified; Z95.5 Presence of coronary angioplasty implant and graft; M19.90 Unspecified osteoarthritis, unspecified site; I73.9 Peripheral vascular disease, unspecified; Z89.422 Acquired absence of other left toe(s)

== ENCOUNTER 2017-07-22 18:03 | Inpatient (IN) | payer MEDICARE ==
[2017-07-22 18:03] VITALS: BMI 16.5
--- NOTE | 2017-07-22 19:09 | ED PDOC ---
Lower Extremity Pain/Injury Time Seen by Provider: 07/22/17 18:26 Chief Complaint (Nursing): Lower Extremity Problem/Injury Chief Complaint (Provider): foot pain History Per: Patient Additional Complaint(s): Pt is an 87 yo male, PMH of DM, HTN, High Cholesterol, PVD and CAD s/p CABG, Sent to ED from [facility] for evaluation of arterial insufficency to left lower extremity. Pt reports that he has pain to left great toe and he is noticing some discoloration to left 2nd toe. 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 Pt is followed by Dr. Chen and reports that he called the office and was advised to come to ED. Past Medical History Reviewed: Nursing Documentation, Vital Signs Vital Signs: Last Vital Signs Temp 97.6 F 07/22/17 18:09 Pulse 70 07/22/17 18:09 Resp 20 07/22/17 18:09 BP 112/59 L 07/22/17 18:09 Pulse Ox 99 07/22/17 18:09 - Medical History PMH: Arthritis, CAD, CHF, Diabetes, HTN, Hypercholesterolemia, Hyperlipidemia Denies: Chronic Kidney Disease - Surgical History Surgical History: CABG, Coronary Stent Denies: Pacemaker Other surgeries: left 3rd 4th toe amputation - Family History Family History: States: Unknown Family Hx - Living Arrangements Living Arrangements: Residential/Assist [facility] - Social History Current smoker - smoking cessation education provided: No Alcohol: None Drugs: Denies - Immunization History Hx Tetanus Toxoid Vaccination: No Hx Influenza Vaccination: Yes Hx Pneumococcal Vaccination: Yes - Home Medications Home Medications: Ambulatory Orders Medication Instructions Recorded Aspirin [Lo-Dose Aspirin EC] 81 mg PO DAILY 04/03/17 Clopidogrel [Plavix] 75 mg PO DAILY 04/03/17 Atorvastatin [Lipitor] 40 mg PO HS 04/07/17 Losartan [Cozaar] 50 mg PO DAILY 04/07/17 Nitroglycerin [Nitrostat] 0.4 mg PO Q5MIN PRN 04/07/17 Ranolazine [Ranexa] 500 mg PO BID 04/07/17 traMADol [Ultram] 50 mg PO TID PRN 04/07/17 Gabapentin [Neurontin] 100 mg PO TID 05/30/17 Multivitamin [Multi-Vitamin Daily] 1 tab PO DAILY 05/30/17 Nebivolol [Bystolic] 10 mg PO DAILY 05/30/17 Oxybutynin [Ditropan Tab] 5 mg PO DAILY 05/30/17 hydroCHLOROthiazide [Hydrodiuril] 25 mg PO DAILY 05/30/17 rOPINIRole [Requip] 1 mg PO TID 05/30/17 SITagliptin [Januvia] 100 mg PO DAILY 06/06/17 Ciprofloxacin [Cipro] 500 mg PO Q12 #14 tab 06/09/17 - Allergies Allergies/Adverse Reactions: Allergies Allergy/AdvReac Type Severity Reaction Status Date / Time No Known Allergies Allergy Verified 05/30/17 10:12 Review of Systems ROS Statement: Except As Marked, All Systems Reviewed And Found Negative Musculoskeletal: Positive for: Other (toe pain) Physical Exam - Reviewed Nursing Documentation Reviewed: Yes Vital Signs Reviewed: Yes - Physical Exam Appears: Positive for: Well, Non-toxic, No Acute Distress Head Exam: Positive for: ATRAUMATIC, NORMAL INSPECTION, NORMOCEPHALIC Skin: Positive for: Normal Color, Warm, DRY Eye Exam: Positive for: EOMI, Normal appearance, PERRL ENT: Positive for: Normal ENT Inspection Neck: Positive for: Normal, Painless ROM Cardiovascular/Chest: Positive for: Regular Rate, Rhythm Respiratory: Positive for: CNT, Normal Breath Sounds Gastrointestinal/Abdominal: Positive for: Normal Exam, Bowel Sounds, Soft Back: Positive for: Normal Inspection Extremity: Positive for: Normal ROM, Tenderness, Swelling (and mild erythema to left great toe), Other (no discoloration noyted to 2nd digit) Neurologic/Psych: Positive for: Alert, Oriented - ECG O2 Sat by Pulse Oximetry: 99 Medical Decision Making Medical Decision Making: Podiatry consult obtained IV access established and diagnostics ordered Pt had Duplex LE vein US on 07/12/17: Negative for DVT (Sent with paper from [facility]) Case endorsed to SAKINA Boyd at 20:00 pending diagnostic review and podiatry consult Disposition - Clinical Impression Clinical Impression: Toe pain - Patient ED Disposition Is Patient to be Admitted: Transfer of Care - Disposition Disposition: Transfer of Care ([facility]) Disposition Time: 19:13 Condition: STABLE Forms: [facility] (Mosotho) - POA Present On Arrival: None
[2017-07-22 20:39] LABS: BASO # 0.1 K/uL (0.0-0.2); BASO % 0.9 % (0.0-2.0); EOS # 0.1 K/uL (0.0-0.7); EOS % 0.6 % (0.0-4.0); HEMATOCRIT 39.3 % (35.0-51.0); LYMPH # 1.5 K/uL (1.0-4.3); LYMPH % 12.3 % (20.0-40.0); MEAN CORPUSCULAR HEMOGLOBIN 27.1 pg (27.0-31.0); MEAN CORPUSCULAR HGB CONC 32.3 g/dL (33.0-37.0); MEAN PLATELET VOLUME 7.8 fl (7.2-11.7); MONO # 0.9 K/uL (0.0-0.8); MONO % 7.4 % (0.0-10.0); NEUT # 9.9 K/uL (1.8-7.0); NEUT % 78.8 % (50.0-75.0); RED CELL DISTRIBUTION WIDTH 16.3 % (11.5-14.5); WHITE BLOOD COUNT 12.5 K/uL (4.8-10.8)
[2017-07-22 20:51] LABS: ALB/GLOB RATIO 1.3 (1.0-2.1); ALKALINE PHOSPHATASE 86 U/L (38-126); ALT/SGPT 35 U/L (21-72); AST/SGOT 30 U/L (17-59); BILIRUBIN,TOTAL 0.3 mg/dl (0.2-1.3); BLOOD UREA NITROGEN 22 mg/dl (9-20); CALCIUM 9.4 mg/dL (8.4-10.2); CARBON DIOXIDE 25 mmol/L (22-30); CHLORIDE 101 mmol/L (98-107); GFR AFRICAN-AMERICAN > 60; GLUCOSE,RANDOM 153 mg/dL (75-110); POTASSIUM 4.1 MMOL/L (3.6-5.0); SODIUM 135 mmol/l (132-148); TOTAL PROTEIN 7.1 G/DL (6.3-8.2)
--- NOTE | 2017-07-22 21:16 | ED PDOC ---
- Laboratory Results Result Diagrams: 07/22/17 20:35 07/22/17 20:35 - ECG O2 Sat by Pulse Oximetry: 99 Pulse Ox Interpretation: Normal - Radiology X-Ray: Viewed By Ak X-Ray Interpretation: No Acute Disease - Progress ED Course And Treament: Case endorsed to automotive service writer from [facility] pending labs, imagine, podiatry oscaral Patient evaluated by podiatry resident on-call; recommends admission for IV antibiotics and vascular consult. IV rocephin dose ordered. Case discussed with Dr. Pereyra for admission. EXAM: US Duplex Left Lower Extremity Arteries CLINICAL HISTORY: 87 years old, male; Signs and symptoms; Other: Pvd; Additional info: Pvd, necrotic digits TECHNIQUE: Real-time ultrasound scan of the arteries of the left lower extremity with 2-D lindsey scale, color Doppler flow and spectral waveform analysis. COMPARISON: No relevant prior studies available. FINDINGS: Left common femoral artery:, Biphasic waveform, measuring 97 cm/s. Left superficial femoral artery: Monophasic waveform measuring 83 cm/s. Left popliteal artery: Monophasic waveform measuring 37 cm/s. Left calf/foot arteries: Monophasic waveform measuring 70 cm/s. The dorsalis pedis artery is not visualized. Soft tissues: Unremarkable. IMPRESSION: Nonvisualization of the dorsalis pedis artery. Decreased arterial flow within the visualized arteries, without a discrete stenosis detected. This likely represents decreased distal arterial resistance, secondary to ischemia (acute versus chronic). This finding may also be found an inflammatory or infectious disease, such as cellulitis, for which clinical correlation is needed. Disposition - Clinical Impression Clinical Impression: Cellulitis, Peripheral arterial disease - POA Present On Arrival: None - Disposition Disposition: Admitted as In-Patient Disposition Time: 22:30 Condition: FAIR
--- NOTE | 2017-07-22 21:45 | CP.PCM.CON ---
History of Present Illness - History of Present Illness History of Present Illness: 87 y/o male with PMHx of DM, HTN, High Cholesterol, PVD and CAD, arthritis, CHF s/p CABG seen at bedside in ED complaining of discoloration and pain in his left lower extremity. Patient states that he was at [facility] prior to coming here. Patient states he was having difficulty walking and keeping balance in the [facility] so they sent him here. Upon further questioning, patient reports that he is having pain in his big toe and believes that his toes are slightly black and discolored. Patient also states that his toes are more red than usual. Patient states that he has had an history of amputations on that same foot and did not want to risk something new happening this time around. Patient describes his pain as pulsating type in his left leg, foot and big toe. Patient rates his pain as 6-8/10 on VAS. Patient states that he has been having this type of pain for about a month now. Patient denies of any trauma to the foot recently. Patient reports that his nail feels little loose and when touched, he feels a little pain. Patient denies trying any modalities to relieve the pain in his left lower extremity. Patient reports that his pain in his legs and foot is worst during night time when he is in bed. Patient denies of any recent F/N/V/C/SOB/CP today. Patient denies of any other pedal complain at this time. 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 Allergies: N.K.D.A SHx: denies of any EtOH, smoking or illicit drug usage Review of Systems - Constitutional Constitutional: As Per HPI Past Patient History - Infectious Disease Hx of Infectious Diseases: None - Tetanus Immunizations Tetanus Immunization: Unknown - Past Medical History & Family History Past Medical History?: Yes - Past Social History Alcohol: None Drugs: Denies - CARDIAC Hx Congestive Heart Failure: Yes Hx Hypercholesterolemia: Yes Hx Hypertension: Yes Hx Pacemaker: No - PULMONARY Hx Respiratory Disorders: Yes - NEUROLOGICAL Hx Neurological Disorder: No - HEENT Hx HEENT Problems: No - RENAL Hx Chronic Kidney Disease: No - ENDOCRINE/METABOLIC Hx Endocrine Disorders: Yes - HEMATOLOGICAL/ONCOLOGICAL Hx Blood Disorders: No - INTEGUMENTARY Hx Dermatological Problems: No - MUSCULOSKELETAL/RHEUMATOLOGICAL Hx Arthritis: Yes - GASTROINTESTINAL Hx Gastrointestinal Disorders: No Hx Gastroesophageal Reflux: Yes - GENITOURINARY/GYNECOLOGICAL Hx Genitourinary Disorders: Yes - PSYCHIATRIC Hx Psychophysiologic Disorder: No Hx Substance Use: No - SURGICAL HISTORY Hx Coronary Artery Bypass Graft: Yes Hx Coronary Stent: Yes - ANESTHESIA Hx Anesthesia: No Hx Anesthesia Reactions: No Hx Malignant Hyperthermia: No Meds Allergies/Adverse Reactions: Allergies Allergy/AdvReac Type Severity Reaction Status Date / Time No Known Allergies Allergy Verified 05/30/17 10:12 - Medications Medications: Current Medications Ceftriaxone Sodium 1 gm/ (Sodium Chloride) 100 mls @ 100 mls/hr IVPB DAILY [facility] Physical Exam - Constitutional Appears: Well, Non-toxic, No Acute Distress - Extremities Exam Additional comments: Bilateral Lower Extremity Exam: VASC: DP/PT pulses are faintly palpable 1/4 bilaterally, SENIOR APPLICATIONS ENGINEER: < 3 sec b/l, TG: cool to cold from proximal to distal, non-pitting edema noted on the left hallux distally DERM: left lower extremity distally at the foot and hallux appears to have moderate erythema, left hallucal nail appears to be mildly detached from the nail bed distally, nails on the hallux appears to be dystrophic, discolored, and hyperkeratotic in nature, no open lesions, no interdigital macerations, no clinical suspicion of active infection noted at this time NEURO: protective and motor sensation grossly intact ORTHO: pain on palpation of the medial and lateral border of the left hallucal nail bed, Amputation of the 4th and 5th digit noted on the left foot, no pain on palpation/squeeze of the calf bilaterally - Neurological Exam Neurological exam: Alert, Oriented x3 - Psychiatric Exam Psychiatric exam: Normal Affect, Normal Mood Results - Vital Signs Recent Vital Signs: Last Vital Signs Temp 97.6 F 07/22/17 18:09 Pulse 70 07/22/17 18:09 Resp 20 07/22/17 18:09 BP 112/59 L 07/22/17 18:09 Pulse Ox 99 07/22/17 21:16 - Labs Result Diagrams: 07/22/17 20:35 07/22/17 20:35 Labs: Laboratory Results - last 24 hr 07/22/17 07/22/17 20:35 20:35 WBC 12.5 H RBC 4.67 Hgb 12.7 D Hct 39.3 MCV 84.0 MCH 27.1 MCHC 32.3 L RDW 16.3 H Plt Count 284 MPV 7.8 Neut % (Auto) 78.8 H Lymph % (Auto) 12.3 L [place] % (Auto) 7.4 Eos % (Auto) 0.6 Baso % (Auto) 0.9 Neut # 9.9 H Lymph # 1.5 [place] # 0.9 H Eos # 0.1 Baso # 0.1 Sodium 135 Potassium 4.1 Chloride 101 Carbon Dioxide 25 Anion Gap 13 BUN 22 H Creatinine 0.9 Est GFR ( Amer) > 60 Est GFR (Non-Af Amer) > 60 Random Glucose 153 H Calcium 9.4 Total Bilirubin 0.3 AST 30 ALT 35 Alkaline Phosphatase 86 Total Protein 7.1 Albumin 4.0 Globulin 3.1 Albumin/Globulin Ratio 1.3 Assessment & Plan - Assessment and Plan (Free Text) Assessment: 87 y/o male seen at bedside in ED for redness, swelling and pain in his left lower extremity secondary to 1). PVD 2). Cellulitis Plan: Patient evaluated and charts reviewed Patient discussed in details with attending Dr. Chen Vitals and labs reviewed (afebrile, WBC @ 12.5 today) Patient will be admitted for further vascular studies as per Dr. Chen's request Dr. Mckeon consulted for further vascular studies Patient started on ceftriaxone 1gm Thank you for the podiatry consult Podiatry to follow patient while in-house - Date & Time Date: 07/22/17 Time: 20:30
--- NOTE | 2017-07-22 22:59 | US ---
EXAM: US Duplex Left Lower Extremity Arteries CLINICAL HISTORY: 87 years old, male; Signs and symptoms; Other: Pvd; Additional info: Pvd, necrotic digits TECHNIQUE: Real-time ultrasound scan of the arteries of the left lower extremity with 2-D lindsey scale, color Doppler flow and spectral waveform analysis. COMPARISON: No relevant prior studies available. FINDINGS: Left common femoral artery:, Biphasic waveform, measuring 97 cm/s. Left superficial femoral artery: Monophasic waveform measuring 83 cm/s. Left popliteal artery: Monophasic waveform measuring 37 cm/s. Left calf/foot arteries: Monophasic waveform measuring 70 cm/s. The dorsalis pedis artery is not visualized. Soft tissues: Unremarkable. IMPRESSION: Nonvisualization of the dorsalis pedis artery. Decreased arterial flow within the visualized arteries, without a discrete stenosis detected. This likely represents decreased distal arterial resistance, secondary to ischemia (acute versus chronic). This finding may also be found an inflammatory or infectious disease, such as cellulitis, for which clinical correlation is needed.
[2017-07-22 23:33] LABS: VENOUS BLOOD GAS BASE EXCESS 2.6 mmol/L (0.0-2.0); VENOUS BLOOD GAS PCO2 41 mmHg (40-60); VENOUS BLOOD PH 7.43 (7.32-7.43)
[2017-07-22] MEDS ORDERED: cefTRIAXone (Rocephin) 1 gm Inj ONE (23:52)
[2017-07-23] MEDS ORDERED: Magnesium Hydroxide Susp 30 ml UD PO PRN (01:33)
[2017-07-23] MEDS: Heparin 25,000units in D5W 25,000 UNITS/250 ML BAG IV SCH (02:46)
[2017-07-23] MEDS: Piperacillin/Tazobact 3.375 GM in Sodium Chloride 0.9% 100 ML IVPB SCH ×4 (02:52→21:34)
[2017-07-23] MEDS: Insulin Regular 100 units/ml SC SCH ×4 (07:00→22:44)
[2017-07-23 08:01] LABS: HEMATOCRIT 38.2 % (35.0-51.0); MEAN CELL VOLUME 84.4 fl (80.0-94.0); MEAN CORPUSCULAR HEMOGLOBIN 27.7 pg (27.0-31.0); MEAN CORPUSCULAR HGB CONC 32.8 g/dL (33.0-37.0); RED CELL DISTRIBUTION WIDTH 16.2 % (11.5-14.5); WHITE BLOOD COUNT 12.5 K/uL (4.8-10.8)
[2017-07-23 08:10] LABS: ALB/GLOB RATIO 1.2 (1.0-2.1); ALKALINE PHOSPHATASE 95 U/L (38-126); ALT/SGPT 34 U/L (21-72); AST/SGOT 28 U/L (17-59); BILIRUBIN,TOTAL 0.8 mg/dl (0.2-1.3); BLOOD UREA NITROGEN 18 mg/dl (9-20); CALCIUM 8.9 mg/dL (8.4-10.2); CARBON DIOXIDE 20 mmol/L (22-30); CHLORIDE 103 mmol/L (98-107); CHOLESTEROL 148 mg/dL (0-199); GFR AFRICAN-AMERICAN > 60; GLUCOSE,RANDOM 160 mg/dL (75-110); POTASSIUM 3.8 MMOL/L (3.6-5.0); SODIUM 136 mmol/l (132-148); TOTAL PROTEIN 7.1 G/DL (6.3-8.2)
[2017-07-23 08:26] LABS: T4 9.39 ug/dl (5.5-11.0)
[2017-07-23 08:40] LABS: THYROID STIMULATING HORMONE 3.27 mIU/ML (0.46-4.68)
--- NOTE | 2017-07-23 08:56 | RAD ---
HISTORY: admit COMPARISON: 06/06/2017 FINDINGS: LUNGS: No active pulmonary disease. PLEURA: No significant pleural effusion identified, no pneumothorax apparent. CARDIOVASCULAR: Status post CABG. Normal heart size. No congestive change. OSSEOUS STRUCTURES: No significant abnormalities. VISUALIZED UPPER ABDOMEN: Normal. OTHER FINDINGS: None. IMPRESSION: No active disease.
[2017-07-23] MEDS ORDERED: Patient's Own Med (Multivitamin [Multi-Vitamin Daily] 1 TAB) PO SCH (09:00)
--- NOTE | 2017-07-23 09:12 | RAD ---
PROCEDURE: Left Foot Radiographs. HISTORY: pain COMPARISON: 07/10/2016 FINDINGS: BONES: Status post amputation mid 4th and 5th metatarsal. No acute fracture. Please note that examination consists of only two views, limiting this evaluation. JOINTS: Normal. SOFT TISSUES: Vascular calcification OTHER FINDINGS: None. IMPRESSION: No acute abnormality. Amputation 4th and digits mid metatarsal.
[2017-07-23] MEDS: Multivitamin With Minerals Tab PO SCH (10:34)
--- NOTE | 2017-07-23 10:39 | CARD ---
APPROVED REPORT EKG Measurement Heart [id number] <Conclusion> Normal sinus rhythm Nonspecific T wave abnormality Abnormal ECG baseline artefact present
--- NOTE | 2017-07-23 11:25 | CP.PCM.PN ---
Subjective - Date & Time of Evaluation Date of Evaluation: 07/23/17 Time of Evaluation: 11:23 - Subjective Subjective: 87 year old male with PMH of DM, HTN, High Cholesterol, PVD and CAD, arthritis, CHF s/p CABG, digital amputation seen at bedside with attending Dr. Chen for left great toe pain. Patient states that he still has pain to his great toe but it is slightly decreased from yesterday. Patient denies any acute overnight events. He denies any further pedal complaints at this time and he denies N/V/F/ C/CP/SOB Objective - Vital Signs/Intake and Output Vital Signs (last 24 hours): Temp Pulse Resp BP Pulse Ox 97.4 F L 74 20 126/71 98 07/23/17 08:37 07/23/17 08:37 07/23/17 08:37 07/23/17 10:35 07/23/17 08:37 - Medications Medications: Current Medications Acetaminophen (Tylenol 325mg Tab) 650 mg PO Q4 PRN PRN Reason: Fever >100.4 F Acetaminophen (Tylenol 325mg Tab) 650 mg PO Q4 PRN PRN Reason: Pain, Mild (1-3) Atorvastatin Calcium (Lipitor) 40 mg PO HS [facility] Bisacodyl (Dulcolax) 10 mg RC DAILY PRN PRN Reason: Constipation Gabapentin (Neurontin) 100 mg PO TID [facility] Last Admin: 07/23/17 10:35 Dose: 100 mg Home Med (Ranolazine [Ranexa]) 500 mg PO BID [facility] Home Med (Ropinirole [Requip]) 1 mg PO TID [facility] Hydrochlorothiazide (Hydrodiuril) 25 mg PO DAILY [facility] Last Admin: 07/23/17 10:50 Dose: 25 mg Heparin Sodium/Dextrose (Heparin 25,000 Units/250ml In D5w) 25,000 units in 250 mls @ 9 mls/hr IV .Q24H [facility] PRN Reason: Protocol Last Admin: 07/23/17 02:46 Dose: 9 mls/hr Piperacillin Sod/Tazobactam (Sod 3.375 gm/ Sodium Chloride) 100 mls @ 100 mls/ hr IVPB Q6H [facility] Last Admin: 07/23/17 02:52 Dose: 100 mls/hr Insulin Human Regular (Humulin R) 0 units SC ACCU-CHECK [facility] PRN Reason: Protocol Last Admin: 07/23/17 07:00 Dose: Not Given Losartan Potassium (Cozaar) 50 mg PO DAILY [facility] Last Admin: 07/23/17 10:34 Dose: 50 mg Magnesium Hydroxide (Milk Of Magnesia) 30 ml PO HS PRN PRN Reason: Constipation Metoprolol Tartrate (Lopressor) 50 mg PO Q12 [facility] Last Admin: 07/23/17 10:35 Dose: 50 mg Morphine Sulfate (Morphine) 2 mg IVP Q4 PRN PRN Reason: Pain, severe (8-10) Multivitamins/Minerals (Therapeutic-M Tab) 1 tab PO DAILY [facility] Last Admin: 07/23/17 10:34 Dose: 1 tab Nitroglycerin (Nitrostat Sl Tab) 0.4 mg SL Q5MIN PRN PRN Reason: chest pain Oxybutynin Chloride (Ditropan Tab) 5 mg PO DAILY [facility] Last Admin: 07/23/17 10:35 Dose: 5 mg Sitagliptin Phosphate (Januvia) 100 mg PO DAILY [facility] Last Admin: 07/23/17 10:35 Dose: 100 mg - Labs Labs: 07/23/17 06:55 07/23/17 06:55 PT 12.4 Seconds (9.8-13.1) 07/23/17 09:00 INR 1.2 (0.9-1.2) 07/23/17 09:00 APTT 146.0 Seconds (25.6-37.1) H* D 07/23/17 09:00 - Constitutional Appears: Well, Non-toxic, No Acute Distress - Extremities Exam Additional comments: Bilateral Lower Extremity Exam: VASC: DP/PT pulses are faintly palpable 1/4 bilaterally, [employer]: < 3 sec b/l, TG: cool to cold from proximal to distal, non-pitting edema noted on the left hallux distally DERM: left lower extremity distally at the foot and hallux appears to have moderate erythema, left hallucal nail appears to be mildly detached from the nail bed distally, nails on the hallux appears to be dystrophic, discolored, and hyperkeratotic in nature, no open lesions, no interdigital macerations, no clinical suspicion of active infection noted at this time NEURO: protective and motor sensation grossly intact ORTHO: pain on palpation of the medial and lateral border of the left hallucal nail bed, Amputation of the 4th and 5th digit noted on the left foot, no pain on palpation/squeeze of the calf bilaterally - Neurological Exam Neurological Exam: Alert, Awake, Oriented x3 - Psychiatric Exam Psychiatric exam: Normal Affect, Normal Mood Assessment and Plan - Assessment and Plan (Free Text) Assessment: 87 y/o male seen at bedside for redness, swelling and pain in his left lower extremity secondary to 1). PVD 2). Cellulitis Plan: Patient seen and evaluated at bedside with attending Dr. Chen Charts, labs and vitals reviewed; WBC 12.5, afebrile No dressing applied at this time No surgical intervention planned at this time Awaiting results of LE US and CT angiogram before determining course of action Continue IV abd Podiatry will continue to follow while patient remains in house
[2017-07-23] MEDS ORDERED: Iodixanol 320 MG/ML 100 ML BOTTLE IV ONE (14:52)
[2017-07-23] MEDS ORDERED: Sodium Chloride 0.9% 50 ML IV ONE (14:52)
--- NOTE | 2017-07-23 16:50 | CP.PCM.HP ---
History of Present Illness - History of Present Illness History of Present Illness: CC: LLE pain. 87 y/o M, brought by EMS from [facility] to ER [facility] for evaluation of increased LLE, L foot pain on day [employer] with no relief. Pt came c/o of moderate to severe pain in LLE, L great toe intensity 6-7:10, aching type, associated to redness, swelling and discoloration of the L 2nd toe. Worsening symptoms: On arrival to ED, BS 239, Hx of amputation 4th and digits mid metatarsal. Hx. CABG, Hx Cardiac Stent. Aggravated factor: Difficulty walking and keeping balance. Denied: Fever, chills, n/v/d, abdominal pain, SOB, CP, palpitation, Syncope, Dizziness, sick contact. PMHx: DM, HTN, CAD, CHF, HLD, Chronic back pain, O/A, Cardiac Stent, PVD, Partial Amputation L foot, S/P CABG. EKG sows: Normal sinus rhythm. CXR: No active disease. Foot X-Ray: No acute abnormality, s/p amputation mid 4th and 5th metatarsal. Ext U-S LLE: Decreased arterial flow and decreased distal artery resistance 2nd to ischemia( acute vs chronic). This finding may also be found an inflammatory or infectious disease such as Cellulites. Present on Admission - Present on Admission Any Indicators Present on Admission: No Review of Systems - Constitutional Constitutional: Other (negative) - EENT Eyes: Requires Corrective Lenses Ears: Other (negative) Nose/Mouth/Throat: Other (negative) - Cardiovascular Cardiovascular: Pedal Edema (left) - Respiratory Respiratory: Other (negative) - Gastrointestinal Gastrointestinal: Constipation - Genitourinary Genitourinary: Urinary Incontinence - Musculoskeletal Musculoskeletal: Arthralgias, Back Pain, Other (LLE, L foot, L great toe pain 2nd to infection.) - Integumentary Integumentary: Erythema, Swelling - Neurological Neurological: Other (negative) - Psychiatric Psychiatric: Other (negative) - Endocrine Endocrine: Other (negative) - Hematologic/Lymphatic Hematologic: Other (negative) Past Patient History - Infectious Disease Hx of Infectious Diseases: None - Tetanus Immunizations Tetanus Immunization: Unknown - Past Medical History & Family History Past Medical History?: Yes Pertinent Family History: Unknown - Past Social History Smoking Status: Never Smoked Alcohol: None Drugs: Denies Home Situation {Lives}: Long Term - CARDIAC Hx Cardiac Disorders: Yes Hx Congestive Heart Failure: Yes Hx Hypercholesterolemia: Yes Hx Hypertension: Yes Hx Pacemaker: No - PULMONARY Hx Respiratory Disorders: Yes - NEUROLOGICAL Hx Neurological Disorder: No - HEENT Hx HEENT Problems: No - RENAL Hx Chronic Kidney Disease: No - ENDOCRINE/METABOLIC Hx Endocrine Disorders: Yes - HEMATOLOGICAL/ONCOLOGICAL Hx Blood Disorders: No - INTEGUMENTARY Hx Dermatological Problems: No - MUSCULOSKELETAL/RHEUMATOLOGICAL Hx Arthritis: Yes Hx Falls: No Hx Unsteady Gait: Yes (ambulates with rolling walker) - GASTROINTESTINAL Hx Gastrointestinal Disorders: No Hx Gastroesophageal Reflux: Yes - GENITOURINARY/GYNECOLOGICAL Hx Genitourinary Disorders: Yes - PSYCHIATRIC Hx Substance Use: No - SURGICAL HISTORY Hx Coronary Artery Bypass Graft: Yes Hx Coronary Stent: Yes Other/Comment: amputation of left 4th and 5th metatarsal - ANESTHESIA Hx Anesthesia: No Hx Anesthesia Reactions: No Hx Malignant Hyperthermia: No Meds Allergies/Adverse Reactions: Allergies Allergy/AdvReac Type Severity Reaction Status Date / Time No Known Allergies Allergy Verified 05/30/17 10:12 Physical Exam - Constitutional Appears: No Acute Distress, Chronically Ill - Head Exam Head Exam: NORMAL INSPECTION - Eye Exam Eye Exam: PERRL - ENT Exam ENT Exam: Normal Exam - Neck Exam Neck exam: Positive for: Normal Inspection - Respiratory Exam Respiratory Exam: NORMAL BREATHING PATTERN - Cardiovascular Exam Cardiovascular Exam: REGULAR RHYTHM - GI/Abdominal Exam GI & Abdominal Exam: Normal Bowel Sounds, Soft - Extremities Exam Extremities exam: Positive for: tenderness (Mild L foot, L great toe with swelling and erythema. ), pedal pulses present (+1 weak b/l) - Back Exam Back exam: NORMAL INSPECTION - Neurological Exam Neurological exam: Alert, Oriented x3 - Psychiatric Exam Psychiatric exam: Normal Mood - Skin Skin Exam: Erythema, Warm Results - Vital Signs Recent Vital Signs: Last Vital Signs Temp 98 F 07/23/17 16:08 Pulse 75 07/23/17 16:08 Resp 20 07/23/17 16:08 BP 125/76 07/23/17 16:08 Pulse Ox 98 07/23/17 16:08 reviewed Anni - Labs Result Diagrams: 07/25/17 05:38 07/25/17 05:38 Labs: Laboratory Results - last 24 hr 07/22/17 07/23/17 07/23/17 23:10 02:01 06:05 WBC RBC Hgb Hct MCV MCH MCHC RDW Plt Count PT INR APTT 31.6 pO2 36 VBG pH 7.43 VBG pCO2 41 VBG HCO3 26.2 VBG Total CO2 28.5 H VBG O2 Sat (Calc) 77.7 H VBG Base Excess 2.6 H VBG Potassium 3.9 Sodium 136.0 Chloride 101.0 Glucose 142 H Lactate 1.4 FiO2 21.0 Potassium Carbon Dioxide Anion Gap BUN Creatinine Est GFR ( Amer) Est GFR (Non-Af Amer) POC Glucose (mg/dL) 150 H Random Glucose Hemoglobin A1c Calcium Total Bilirubin AST ALT Alkaline Phosphatase Total Protein Albumin Globulin Albumin/Globulin Ratio Triglycerides Cholesterol LDL Cholesterol Direct HDL Cholesterol Thyroxine (T4) TSH 3rd Generation Venous Blood Potassium 3.9 07/23/17 07/23/17 07/23/17 06:55 06:55 09:00 WBC 12.5 H RBC 4.53 Hgb 12.5 Hct 38.2 MCV 84.4 MCH 27.7 MCHC 32.8 L RDW 16.2 H Plt Count 263 PT INR APTT pO2 VBG pH VBG pCO2 VBG HCO3 VBG Total CO2 VBG O2 Sat (Calc) VBG Base Excess VBG Potassium Sodium 136 Chloride 103 Glucose Lactate FiO2 Potassium 3.8 Carbon Dioxide 20 L Anion Gap 17 BUN 18 Creatinine 0.8 Est GFR ( Amer) > 60 Est GFR (Non-Af Amer) > 60 POC Glucose (mg/dL) Random Glucose 160 H Hemoglobin A1c 8.5 H D Calcium 8.9 Total Bilirubin 0.8 AST 28 ALT 34 Alkaline Phosphatase 95 Total Protein 7.1 Albumin 3.9 Globulin 3.2 Albumin/Globulin Ratio 1.2 Triglycerides 59 Cholesterol 148 LDL Cholesterol Direct 83 HDL Cholesterol 50 Thyroxine (T4) 9.39 TSH 3rd Generation 3.27 Venous Blood Potassium 07/23/17 07/23/17 07/23/17 09:00 11:24 16:07 WBC RBC Hgb Hct MCV MCH MCHC RDW Plt Count PT 12.4 INR 1.2 APTT 146.0 H* D pO2 VBG pH VBG pCO2 VBG HCO3 VBG Total CO2 VBG O2 Sat (Calc) VBG Base Excess VBG Potassium Sodium Chloride Glucose Lactate FiO2 Potassium Carbon Dioxide Anion Gap BUN Creatinine Est GFR ( Amer) Est GFR (Non-Af Amer) POC Glucose (mg/dL) 235 H 134 H Random Glucose Hemoglobin A1c Calcium Total Bilirubin AST ALT Alkaline Phosphatase Total Protein Albumin Globulin Albumin/Globulin Ratio Triglycerides Cholesterol LDL Cholesterol Direct HDL Cholesterol Thyroxine (T4) TSH 3rd Generation Venous Blood Potassium reviewed j.P. - EKG Data EKG comments: reviewed J.P. - Imaging and Cardiology Chest x-ray Status: Report reviewed by me (Ale.) Venous US Status: Report reviewed by me (Romero.P.) Additional comment: Foot X-Ray: Reviewed J.P. 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 Cardiology consult. - Date & Time Date: 07/23/17 Time: 11:40
--- NOTE | 2017-07-23 17:20 | CP.PCM.CON ---
History of Present Illness - History of Present Illness History of Present Illness: I was asked to evalaute patient due to PAD, Patient is a 87 year old male with PMH HTN, DM, PAD, who presents with cellulitis of the left lower extremity. The patient had a previous endovascular intervention of the left LE. 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 The patient was transferred to [place] for further management. He is s/p CT angiogram Review of Systems - Constitutional Constitutional: absent: As Per HPI, Anorexia, Chills, Daytime Sleepiness, Excessive Sweating, Fatigue, Fever, Frequent Falls, Headache, Increased Appetite , Lethargy, Malaise, Night Sweats, Snoring, Sleep Apnea, Weight Gain, Weight Loss, Weakness, Other - EENT Eyes: absent: As Per HPI, Blind Spots, Blurred Vision, Change in Vision, Decreased Night Vision, Diplopia, Discharge, Dry Eye, Exophthalmos, Floaters, Irritation, Itchy Eyes, Loss of Peripheral Vision, Pain, Photophobia, Requires Corrective Lenses, Sees Flashes, Spots in Vision, Tunnel Vision, Other Visual Disturbances, Loss of Vision, Other Ears: absent: As Per HPI, Decreased Hearing, Ear Discharge, Ear Pain, Tinnitus, Abnormal Hearing, Disequilibrium, Dizziness, Other Nose/Mouth/Throat: absent: As Per HPI, Epistaxis, Nasal Congestion, Nasal Discharge, Nasal Obstruction, Nasal Trauma, Nose Pain, Post Nasal Drip, Sinus Pain, Sinus Pressure, Bleeding Gums, Change in Voice, Dental Pain, Dry Mouth, Dysphagia, Halitosis, Hoarsness, Lip Swelling, Mouth Lesions, Mouth Pain, Odynophagia, Sore Throat, Throat Swelling, Tongue Swelling, Facial Pain, Neck Pain, Neck Mass, Other - Cardiovascular Cardiovascular: absent: As Per HPI, Acrocyanosis, Chest Pain, Chest Pain at Rest , Chest Pain with Activity, Claudication, Diaphoresis, Dyspnea, Dyspnea on Exertion, Edema, Irregular Heart Rhythm, Pain Radiating to Arm/Neck/Jaw, Leg Edema, Leg Ulcers, Lightheadedness, Orthopnea, Palpitations, Paroxysmal Nocturnal Dyspnea, Pedal Edema, Radiating Pain, Rapid Heart Rate, Slow Heart Rate, Syncope, Other - Respiratory Respiratory: absent: As Per HPI, Cough, Dyspnea, Hemoptysis, Dyspnea on Exertion , Wheezing, Snoring, Stridor, Pain on Inspiration, Chest Congestion, Excessive Mucous Production, Change in Mucous Color, Pain with Coughing, Other - Gastrointestinal Gastrointestinal: absent: As Per HPI, Abdominal Pain, Belching, Bloating, Change in Bowel Habits, Change in Stool Character, Coffee Ground Emesis, Constipation, Cramping, Diarrhea, Dyspepsia, Dysphagia, Early Satiety, Excessive Flatus, Fecal Incontinence, Heartburn, Hematemesis, Hematochezia, Loose Stools, Melena, Nausea, Odynophagia, Temesmus, Vomiting, Other - Genitourinary Genitourinary: absent: As Per HPI, Change in Urinary Stream, Difficulty Urinating, Dysuria, Flank Pain, Hematuria, Pyuria, Nocturia, Urinary Incontinence, Urinary Frequency, Urinary Hesitance, Urinary Urgency, Voiding Freq/Small Amts, Freq UTI, Hx Renal/Bladder Calculi, Hx /Renal Surgery, Bladder Distension, Other - Musculoskeletal Musculoskeletal: Radiating Pain into Limb - Integumentary Integumentary: absent: As Per HPI, Acne, Alopecia, Bleeding Lesions, Change in Hair, Change in Nails, Change in Pigmentation, Changing Lesions, Dry Skin, Erythema, Furuncle, Hirsutism, Lesions, New Lesions, Non-Healing Lesions, Photosensitivity, Pruritus, Rash, Skin Pain, Skin Ulcer, Sores, Striae, Swelling , Unusual Bruising, Wounds, Jaundice, Other - Neurological Neurological: absent: As Per HPI, Abnormal Gait, Abnormal Hearing, Abnormal Movements, Abnormal Speech, Behavioral Changes, Burning Sensations, Confusion, Convulsions, Disequilibrium, Dizziness, Numbness, Focal Weakness, Frequent Falls , Headaches, Lack of Coordination, Loss of Vision, Memory Loss, Paresthesias, Radicular Pain, Restless Legs, Sensory Deficit, Syncope, Tingling, Tremor, Vertigo, Weakness, Other Visual Disturbances, Other - Psychiatric Psychiatric: absent: As Per HPI, Abnormal Sleep Pattern, Anhedonia, Anxiety, Auditory Hallucinations, Behavioral Changes, Change in Appetite, Change in Libido, Confusion, Depression, Difficulty Concentrating, Hallucinations, Homicidal Ideation, Hopelessness, Irritability, Memory Loss, Mood Swings, Panic Attacks, Paranoia, Suicidal Ideation, Visual Hallucinations, Tactile Hallucinations, Other - Endocrine Endocrine: absent: As Per HPI, Change in Body Appearance, Change in Libido, Cold Intolorance, Deepening of Voice, Excessive Sweating, Fatigue, Flushing, Heat Intolorance, Increase in Ring/Shoe/Hat Size, Palpitations, Polydipsia, Polyphagia, Polyuria, Other - Hematologic/Lymphatic Hematologic: absent: As Per HPI, Easy Bleeding, Easy Bruising, Lymphadenopathy, Other Past Patient History - Infectious Disease Hx of Infectious Diseases: None - Tetanus Immunizations Tetanus Immunization: Unknown - Past Medical History & Family History Past Medical History?: Yes - Past Social History Smoking Status: Never Smoked - CARDIAC Hx Congestive Heart Failure: Yes Hx Hypercholesterolemia: Yes Hx Hypertension: Yes Hx Pacemaker: No - PULMONARY Hx Respiratory Disorders: Yes - NEUROLOGICAL Hx Neurological Disorder: No - HEENT Hx HEENT Problems: No - RENAL Hx Chronic Kidney Disease: No - ENDOCRINE/METABOLIC Hx Endocrine Disorders: Yes - HEMATOLOGICAL/ONCOLOGICAL Hx Blood Disorders: No - INTEGUMENTARY Hx Dermatological Problems: No - MUSCULOSKELETAL/RHEUMATOLOGICAL Hx Arthritis: Yes Hx Falls: No Hx Unsteady Gait: Yes (ambulates with rolling walker) - GASTROINTESTINAL Hx Gastrointestinal Disorders: No Hx Gastroesophageal Reflux: Yes - GENITOURINARY/GYNECOLOGICAL Hx Genitourinary Disorders: Yes - PSYCHIATRIC Hx Substance Use: No - SURGICAL HISTORY Hx Coronary Artery Bypass Graft: Yes Hx Coronary Stent: Yes Other/Comment: amputation of left 4th and 5th metatarsal - ANESTHESIA Hx Anesthesia: No Hx Anesthesia Reactions: No Hx Malignant Hyperthermia: No Meds Allergies/Adverse Reactions: Allergies Allergy/AdvReac Type Severity Reaction Status Date / Time No Known Allergies Allergy Verified 05/30/17 10:12 - Medications Medications: Current Medications Acetaminophen (Tylenol 325mg Tab) 650 mg PO Q4 PRN PRN Reason: Fever >100.4 F Acetaminophen (Tylenol 325mg Tab) 650 mg PO Q4 PRN PRN Reason: Pain, Mild (1-3) Atorvastatin Calcium (Lipitor) 40 mg PO HS [facility] Bisacodyl (Dulcolax) 10 mg RC DAILY PRN PRN Reason: Constipation Gabapentin (Neurontin) 100 mg PO TID [facility] Last Admin: 07/23/17 14:18 Dose: 100 mg Home Med (Ranolazine [Ranexa]) 500 mg PO BID [facility] Home Med (Ropinirole [Requip]) 1 mg PO TID [facility] Hydrochlorothiazide (Hydrodiuril) 25 mg PO DAILY [facility] Last Admin: 07/23/17 10:50 Dose: 25 mg Heparin Sodium/Dextrose (Heparin 25,000 Units/250ml In D5w) 25,000 units in 250 mls @ 9 mls/hr IV .Q24H [facility] PRN Reason: Protocol Last Admin: 07/23/17 02:46 Dose: 9 mls/hr Piperacillin Sod/Tazobactam (Sod 3.375 gm/ Sodium Chloride) 100 mls @ 100 mls/ hr IVPB 0500,1100,1700,2200 [facility] Last Admin: 07/23/17 17:05 Dose: 100 mls/hr Insulin Human Regular (Humulin R) 0 units SC ACCU-CHECK [facility] PRN Reason: Protocol Last Admin: 07/23/17 16:50 Dose: Not Given Losartan Potassium (Cozaar) 50 mg PO DAILY [facility] Last Admin: 07/23/17 10:34 Dose: 50 mg Magnesium Hydroxide (Milk Of Magnesia) 30 ml PO HS PRN PRN Reason: Constipation Metoprolol Tartrate (Lopressor) 50 mg PO Q12 [facility] Last Admin: 07/23/17 10:35 Dose: 50 mg Morphine Sulfate (Morphine) 2 mg IVP Q4 PRN PRN Reason: Pain, severe (8-10) Multivitamins/Minerals (Therapeutic-M Tab) 1 tab PO DAILY [facility] Last Admin: 07/23/17 10:34 Dose: 1 tab Nitroglycerin (Nitrostat Sl Tab) 0.4 mg SL Q5MIN PRN PRN Reason: chest pain Oxybutynin Chloride (Ditropan Tab) 5 mg PO DAILY [facility] Last Admin: 07/23/17 10:35 Dose: 5 mg Sitagliptin Phosphate (Januvia) 100 mg PO DAILY [facility] Last Admin: 07/23/17 10:35 Dose: 100 mg Physical Exam - Constitutional Appears: Non-toxic - Head Exam Head Exam: NORMAL INSPECTION - Eye Exam Eye Exam: Normal appearance - ENT Exam ENT Exam: Mucous Membranes Moist - Neck Exam Neck exam: Positive for: Full Rom - Respiratory Exam Respiratory Exam: NORMAL BREATHING PATTERN - Cardiovascular Exam Cardiovascular Exam: REGULAR RHYTHM - GI/Abdominal Exam GI & Abdominal Exam: Normal Bowel Sounds - Rectal Exam Rectal Exam: Deferred - Extremities Exam Extremities exam: Positive for: pedal edema - Back Exam Back exam: NORMAL INSPECTION - Neurological Exam Neurological exam: Alert, Oriented x3 - Psychiatric Exam Psychiatric exam: Normal Affect - Skin Skin Exam: Normal Color Results - Vital Signs Recent Vital Signs: Last Vital Signs Temp 98 F 07/23/17 16:08 Pulse 75 07/23/17 16:08 Resp 20 07/23/17 16:08 BP 125/76 07/23/17 16:08 Pulse Ox 98 07/23/17 16:08 - Labs Result Diagrams: 07/23/17 06:55 07/23/17 06:55 Labs: Laboratory Results - last 24 hr 07/22/17 07/23/17 07/23/17 23:10 02:01 06:05 WBC RBC Hgb Hct MCV MCH MCHC RDW Plt Count PT INR APTT 31.6 pO2 36 VBG pH 7.43 VBG pCO2 41 VBG HCO3 26.2 VBG Total CO2 28.5 H VBG O2 Sat (Calc) 77.7 H VBG Base Excess 2.6 H VBG Potassium 3.9 Sodium 136.0 Chloride 101.0 Glucose 142 H Lactate 1.4 FiO2 21.0 Potassium Carbon Dioxide Anion Gap BUN Creatinine Est GFR ( Amer) Est GFR (Non-Af Amer) POC Glucose (mg/dL) 150 H Random Glucose Hemoglobin A1c Calcium Total Bilirubin AST ALT Alkaline Phosphatase Total Protein Albumin Globulin Albumin/Globulin Ratio Triglycerides Cholesterol LDL Cholesterol Direct HDL Cholesterol Thyroxine (T4) TSH 3rd Generation Venous Blood Potassium 3.9 07/23/17 07/23/17 07/23/17 06:55 06:55 09:00 WBC 12.5 H RBC 4.53 Hgb 12.5 Hct 38.2 MCV 84.4 MCH 27.7 MCHC 32.8 L RDW 16.2 H Plt Count 263 PT INR APTT pO2 VBG pH VBG pCO2 VBG HCO3 VBG Total CO2 VBG O2 Sat (Calc) VBG Base Excess VBG Potassium Sodium 136 Chloride 103 Glucose Lactate FiO2 Potassium 3.8 Carbon Dioxide 20 L Anion Gap 17 BUN 18 Creatinine 0.8 Est GFR ( Amer) > 60 Est GFR (Non-Af Amer) > 60 POC Glucose (mg/dL) Random Glucose 160 H Hemoglobin A1c 8.5 H D Calcium 8.9 Total Bilirubin 0.8 AST 28 ALT 34 Alkaline Phosphatase 95 Total Protein 7.1 Albumin 3.9 Globulin 3.2 Albumin/Globulin Ratio 1.2 Triglycerides 59 Cholesterol 148 LDL Cholesterol Direct 83 HDL Cholesterol 50 Thyroxine (T4) 9.39 TSH 3rd Generation 3.27 Venous Blood Potassium 07/23/17 07/23/17 07/23/17 09:00 11:24 16:07 WBC RBC Hgb Hct MCV MCH MCHC RDW Plt Count PT 12.4 INR 1.2 APTT 146.0 H* D pO2 VBG pH VBG pCO2 VBG HCO3 VBG Total CO2 VBG O2 Sat (Calc) VBG Base Excess VBG Potassium Sodium Chloride Glucose Lactate FiO2 Potassium Carbon Dioxide Anion Gap BUN Creatinine Est GFR ( Amer) Est GFR (Non-Af Amer) POC Glucose (mg/dL) 235 H 134 H Random Glucose Hemoglobin A1c Calcium Total Bilirubin AST ALT Alkaline Phosphatase Total Protein Albumin Globulin Albumin/Globulin Ratio Triglycerides Cholesterol LDL Cholesterol Direct HDL Cholesterol Thyroxine (T4) TSH 3rd Generation Venous Blood Potassium Assessment & Plan (1) Peripheral arterial disease Assessment and Plan: previous endovascular therap of the LLE. The patient is on current medical therapy. I will follow up CT angiogram results. The patient had contrast today, therefore I will not perform peripheral angiogram tomorrow as the patient will be at increased risk of contrast induced nephropathy. I will make further recommendations after CT results. Status: Acute (2) CAD (coronary artery disease) Assessment and Plan: s/p CABG. medical therapy Status: Acute (3) Diabetes mellitus Assessment and Plan: risk factor for CAD Status: Acute (4) Hypertension Assessment and Plan: blood pressure control Status: Acute
[2017-07-23 18:31] LABS: PARTIAL THROMBOPLASTIN TIME 89.8 Seconds (25.6-37.1)
[2017-07-24] MEDS ORDERED: Heparin 25,000units in D5W 25,000 UNITS/250 ML BAG IV SCH ×3 (02:15→22:57)
[2017-07-24] MEDS: Heparin 25,000units in D5W 25,000 UNITS/250 ML BAG IV SCH (03:12)
[2017-07-24] MEDS: Piperacillin/Tazobact 3.375 GM in Sodium Chloride 0.9% 100 ML IVPB SCH ×4 (04:59→21:46)
[2017-07-24 05:51] LABS: MEAN CELL VOLUME 84.4 fl (80.0-94.0); MEAN CORPUSCULAR HEMOGLOBIN 27.1 pg (27.0-31.0); MEAN CORPUSCULAR HGB CONC 32.1 g/dL (33.0-37.0); RED CELL DISTRIBUTION WIDTH 16.8 % (11.5-14.5); WHITE BLOOD COUNT 11.4 K/uL (4.8-10.8)
[2017-07-24 05:59] LABS: BLOOD UREA NITROGEN 14 mg/dl (9-20); CALCIUM 9.3 mg/dL (8.4-10.2); CARBON DIOXIDE 25 mmol/L (22-30); CHLORIDE 104 mmol/L (98-107); GFR AFRICAN-AMERICAN > 60; GLUCOSE,RANDOM 131 mg/dL (75-110); POTASSIUM 4.1 MMOL/L (3.6-5.0); SODIUM 138 mmol/l (132-148)
[2017-07-24] MEDS: Insulin Regular 100 units/ml SC SCH ×4 (07:22→22:03)
--- NOTE | 2017-07-24 08:47 | PQF CHF ---
This form is a permanent part of the medical record 07/24/17 Dr. Pereyra Please clarify the type of CHF if known. Documentation of a history of chronic CHF. Medications include Cozaar, Metoprolol and HCTZ. Clarification of your documentation is requested to better reflect the severity of illness and intensity of treatment of your patient. Indicators present [x] Diagnosis of history of CHF [] BNP > 200 [] Imaging Finding of Pulmonary Edema /Pleural Effusions [] Fluid/Volume Overload [] Pitting edema [] Ejection Fraction < 40% (Indicative of Systolic Heart Failure) [] Ejection Fraction > 40% (Indicative of Diastolic Heart Failure) [] Dyspnea / Orthopenea / Paroxysmal Nocturnal Dyspnea [] Other: Location in the medical record that reflects the above clinical findings: [] Treatment Provided: [] PHYSICIAN'S RESPONSE Based on your medical judgment of the clinical indicators outlined above, are you treating this patient for a known or suspected: [] Acute CHF [] Systolic [] Diastolic [] Combined [] Chronic CHF [] Systolic [] Diastolic [] Combined [] Acute on Chronic CHF []Systolic [] Diastolic [] Combined [] CHF due hypertension [] Acute systolic []Chronic systolic [] Acute/ chronic systolic [] Other, please indicate: [] [] If Unable to Determine, please check the box, sign and date. Present On Admission (POA) Indicator: [] Present at the time of admission [] Not present at the time of admission [] Clinically Undetermined In responding to this query, please exercise your independent professional judgment. The fact that a question is asked does not imply that any particular answer is desired or expected. Thank you for your clarification on this documentation. If you have any questions please call:extension [phone] * Thank you, Leyda Rivera RN CDMP MTDD
[2017-07-24] MEDS: Multivitamin With Minerals Tab PO SCH (09:07)
--- NOTE | 2017-07-24 15:03 | CT ---
PROCEDURE: CT Angiography Abdomen, Pelvis and Lower Extremity with Contrast HISTORY: PVD COMPARISON: None. TECHNIQUE: Technique: CT angiography of the abdomen, pelvis and bilateral lower extremities performed in the arterial phase of enhancement. Coronal and sagittal reformats, and well as rotating MIP images of the vessels generated at the workstation. Intravenous contrast dose: 95 mL Radiation dose: Total exam DLP = 928.24 mGy-cm. This CT exam was performed using one or more of the following dose reduction techniques: Automated exposure control, adjustment of the mA and/or kV according to patient size, and/or use of iterative reconstruction technique. FINDINGS: CT ANGIOGRAPHY: ABDOMINAL AORTA:: No abdominal aortic aneurysm. Scattered calcified and noncalcified plaque in the abdominal aorta and its main branches. MAJOR AORTIC BRANCHES: Celiac [place]: Patent with ostial calcifications. Superior mesenteric artery: Patent with ostial calcifications. Inferior mesenteric artery: Patent with ostial calcifications. Possible moderate to severe narrowing of the origin. Renal arteries: Patent with ostial calcifications. PELVIC ARTERIES: The right common iliac, external iliac and internal iliac arteries demonstrates multifocal calcified and noncalcified plaque without significant narrowing. The left common iliac, external iliac and internal iliac arteries demonstrates multifocal calcified and noncalcified plaque without significant narrowing. RIGHT LOWER EXTREMITY ARTERIES: Right Common Femoral: Patent without significant narrowing however demonstrating calcified and noncalcified plaque. Right Superficial Femoral: Patent demonstrating multifocal areas of mild narrowing due to calcified and noncalcified plaque. Right Profunda Femoris: Patent. Right Popliteal:Patent with focal significant narrowing due to calcified and noncalcified plaque. The below-knee arteries demonstrates extensive calcifications throughout their course. Mild diminutive opacification of the anterior tibial artery to the mid calf segment. No significant opacification in the peroneal and posterior tibial arteries. LEFT LOWER EXTREMITY ARTERIES: Left Common Femoral: Patent without significant narrowing demonstrating calcified and noncalcified plaque. Left Superficial Femoral: Patent demonstrating multifocal areas of mild narrowing due to calcified and noncalcified plaque. Left Profunda Femoris: Patent. Left Popliteal: Patent. The below-knee arteries demonstrate extensive mural calcifications. Contrast flow seen within the peroneal arteries. No definite contrast is seen within the posterior tibial artery. Minimal contrast seen in the proximal anterior tibial artery for approximately 4-5 centimeters from its origin. No contrast seen in the anterior tibial artery in the middle and distal segments. NON-ANGIOGRAPHIC ASPECT OF THE EXAM: LOWER THORAX: Mild bibasilar atelectatic changes noted. Calcified granuloma the lower lobes. Patient is status post CABG. LIVER: Unremarkable. No gross lesion or ductal dilatation. GALLBLADDER AND BILE DUCTS: Unremarkable. PANCREAS: No gross mass identified. However, sub centimeter cystic structure seen in the head/uncinate process of the pancreas (best seen on series 2, image 75.) This is of indeterminate significance. Follow-up with pancreas protocol CT can be obtained if indicated. SPLEEN: Unremarkable. ADRENALS: Mild diffuse thickening seen bilaterally. Possible calcifications in the medial arm of the right adrenal gland. KIDNEYS AND URETERS: Unremarkable. No hydronephrosis. No solid mass. STOMACH AND BOWEL: Small hiatal hernia. Distended stomach. Please note that evaluation of the stomach and bowel is limited due to lack of oral contrast. Moderate stool burden in the colon. No bowel obstruction. Mild thickening of the wall of the rectum could be related to underlying inflammation. Mild diverticulosis without evidence of diverticulitis. APPENDIX: Normal appendix. PERITONEUM: No definite free fluid or free air. LYMPH NODES: Unremarkable. No enlarged lymph nodes. BLADDER: Unremarkable. REPRODUCTIVE: Enlarged prostate. Seminal vesicles not clearly evaluated. BONES: Status post midline sternotomy. Osteopenia in both feet left greater than right. Generalized osteopenia also noted. Extensive degenerative changes in the lower lumbar spine. Extensive facet hypertrophy. OTHER FINDINGS: Extensive edema and skin thickening involving the left foot. Patient is status post 4th and 5th digit amputations. Irregularity of the the 4th and 5th metatarsal heads could represent osteomyelitis. (Clinical correlation requested.) IMPRESSION: Abdominal angiogram: No abdominal aortic aneurysm. Right lower extremity angiogram: Mild multifocal narrowing involving the superficial femoral artery due to calcified and noncalcified plaque. Significant focal narrowing in the popliteal artery due to calcified and noncalcified plaque. Minimal opacification of the anterior tibial artery up to the level of the mid calf region. No opacification within the posterior tibial and peroneal arteries both of which demonstrate extensive mural calcifications. Left lower extremity angiogram: Mild multifocal narrowing involving the superficial femoral artery due to calcified and noncalcified plaque. Patent popliteal artery. Minimal opacification of the peroneal artery to the level of the foot. No opacification in the posterior tibial artery. Minimal opacification in the proximal 4-5 centimeter of the anterior tibial artery. Non angiographic evaluation: Suspicion of infection/osteomyelitis in the left foot particularly involving the 5th and 4th metatarsal heads. Clinical correlation advised. Other findings as above.
--- NOTE | 2017-07-24 16:52 | CP.PCM.PN ---
Subjective - Date & Time of Evaluation Date of Evaluation: 07/24/17 Time of Evaluation: 12:35 - Subjective Subjective: F/U cellulites LLE. Pt awake, no A/D, less pain in LLE. Objective - Vital Signs/Intake and Output Vital Signs (last 24 hours): Temp Pulse Resp BP Pulse Ox 97.8 F 80 20 90/51 L 97 07/24/17 16:22 07/24/17 16:22 07/24/17 16:22 07/24/17 16:22 07/24/17 16:22 - Medications Medications: Current Medications Acetaminophen (Tylenol 325mg Tab) 650 mg PO Q4 PRN PRN Reason: Fever >100.4 F Acetaminophen (Tylenol 325mg Tab) 650 mg PO Q4 PRN PRN Reason: Pain, Mild (1-3) Atorvastatin Calcium (Lipitor) 40 mg PO HS [facility] Last Admin: 07/23/17 21:36 Dose: 40 mg Bisacodyl (Dulcolax) 10 mg RC DAILY PRN PRN Reason: Constipation Gabapentin (Neurontin) 100 mg PO TID [facility] Last Admin: 07/24/17 16:31 Dose: 100 mg Heparin Sodium (Porcine) (Heparin) 2,000 units IVP ONCE ONE PRN Reason: Protocol Stop: 07/24/17 16:44 Home Med (Ranolazine [Ranexa]) 500 mg PO BID [facility] Home Med (Ropinirole [Requip]) 1 mg PO TID [facility] Hydrochlorothiazide (Hydrodiuril) 25 mg PO DAILY [facility] Last Admin: 07/24/17 10:18 Dose: 25 mg Piperacillin Sod/Tazobactam (Sod 3.375 gm/ Sodium Chloride) 100 mls @ 100 mls/ hr IVPB 0500,1100,1700,2200 [facility] Last Admin: 07/24/17 16:30 Dose: 100 mls/hr Heparin Sodium/Dextrose (Heparin 25,000 Units/250ml In D5w) 25,000 units in 250 mls @ 6 mls/hr IV .Q24H [facility] PRN Reason: Protocol Last Admin: 07/24/17 16:39 Dose: 6 mls/hr Insulin Human Regular (Humulin R) 0 units SC ACCU-CHECK [facility] PRN Reason: Protocol Last Admin: 07/24/17 12:50 Dose: 2 units Losartan Potassium (Cozaar) 50 mg PO DAILY [facility] Last Admin: 07/24/17 09:07 Dose: 50 mg Magnesium Hydroxide (Milk Of Magnesia) 30 ml PO HS PRN PRN Reason: Constipation Metoprolol Tartrate (Lopressor) 50 mg PO Q12 [facility] Last Admin: 07/24/17 09:07 Dose: 50 mg Morphine Sulfate (Morphine) 2 mg IVP Q4 PRN PRN Reason: Pain, severe (8-10) Multivitamins/Minerals (Therapeutic-M Tab) 1 tab PO DAILY [facility] Last Admin: 07/24/17 09:07 Dose: 1 tab Nitroglycerin (Nitrostat Sl Tab) 0.4 mg SL Q5MIN PRN PRN Reason: chest pain Oxybutynin Chloride (Ditropan Tab) 5 mg PO DAILY [facility] Last Admin: 07/24/17 09:07 Dose: 5 mg Sitagliptin Phosphate (Januvia) 100 mg PO DAILY [facility] Last Admin: 07/24/17 09:07 Dose: 100 mg - Labs Labs: 07/24/17 04:45 07/24/17 04:45 PT 12.4 Seconds (9.8-13.1) 07/23/17 17:55 INR 1.2 (0.9-1.2) 07/23/17 17:55 APTT 45.9 Seconds (25.6-37.1) H D 07/24/17 15:18 - Constitutional Appears: No Acute Distress, Chronically Ill - Head Exam Head Exam: NORMAL INSPECTION - Eye Exam Eye Exam: PERRL - ENT Exam ENT Exam: Normal Exam - Neck Exam Neck Exam: Normal Inspection - Respiratory Exam Respiratory Exam: NORMAL BREATHING PATTERN - Cardiovascular Exam Cardiovascular Exam: REGULAR RHYTHM - GI/Abdominal Exam GI & Abdominal Exam: Soft, Normal Bowel Sounds - Extremities Exam Extremities Exam: Tenderness (L foot, L great toe with swelling and erythema. Pedal pulse present +1 weak b/l.) - Back Exam Back Exam: NORMAL INSPECTION - Neurological Exam Neurological Exam: Alert, Oriented x3 - Psychiatric Exam Psychiatric exam: Normal Mood - Skin Skin Exam: Erythema, Warm Assessment and Plan (1) Cellulitis of foot Status: Acute (2) PVD (peripheral vascular disease) Status: Acute (3) Ischemia of foot Status: Acute (4) Diabetes mellitus Status: Chronic (5) Hyperglycemia Status: Acute (6) Hypertension Status: Chronic (7) CHF (congestive heart failure) Status: Chronic (8) History of coronary artery disease Status: Chronic (9) Hx of heart artery stent Status: Chronic (10) 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. Consult appreciated.
[2017-07-25] MEDS: Piperacillin/Tazobact 3.375 GM in Sodium Chloride 0.9% 100 ML IVPB SCH ×4 (05:18→21:17)
[2017-07-25 05:41] LABS: HEMATOCRIT 37.1 % (35.0-51.0); MEAN CELL VOLUME 84.3 fl (80.0-94.0); MEAN CORPUSCULAR HEMOGLOBIN 27.5 pg (27.0-31.0); MEAN CORPUSCULAR HGB CONC 32.6 g/dL (33.0-37.0); RED CELL DISTRIBUTION WIDTH 16.9 % (11.5-14.5); WHITE BLOOD COUNT 9.1 K/uL (4.8-10.8)
[2017-07-25 05:58] LABS: BLOOD UREA NITROGEN 13 mg/dl (9-20); CALCIUM 9.2 mg/dL (8.4-10.2); CARBON DIOXIDE 28 mmol/L (22-30); CHLORIDE 107 mmol/L (98-107); GFR AFRICAN-AMERICAN > 60; GLUCOSE,RANDOM 122 mg/dL (75-110); POTASSIUM 4.6 MMOL/L (3.6-5.0); SODIUM 141 mmol/l (132-148)
[2017-07-25] MEDS: Insulin Regular 100 units/ml SC SCH ×4 (07:32→22:47)
--- NOTE | 2017-07-25 07:36 | CP.PCM.PN ---
Subjective - Date & Time of Evaluation Date of Evaluation: 07/24/17 Time of Evaluation: 11:00 - Subjective Subjective: patient has less foot pain. Objective - Vital Signs/Intake and Output Vital Signs (last 24 hours): Temp Pulse Resp BP Pulse Ox 97.7 F 64 18 115/64 99 07/25/17 01:00 07/25/17 01:00 07/25/17 01:00 07/25/17 01:00 07/25/17 01:00 - Medications Medications: Current Medications Acetaminophen (Tylenol 325mg Tab) 650 mg PO Q4 PRN PRN Reason: Fever >100.4 F Acetaminophen (Tylenol 325mg Tab) 650 mg PO Q4 PRN PRN Reason: Pain, Mild (1-3) Atorvastatin Calcium (Lipitor) 40 mg PO HS COUNTS INCLUDE 234 BEDS AT THE [facility] Last Admin: 07/24/17 22:02 Dose: 40 mg Bisacodyl (Dulcolax) 10 mg RC DAILY PRN PRN Reason: Constipation Gabapentin (Neurontin) 100 mg PO TID COUNTS INCLUDE 234 BEDS AT THE [facility] Last Admin: 07/24/17 16:31 Dose: 100 mg Home Med (Ranolazine [Ranexa]) 500 mg PO BID COUNTS INCLUDE 234 BEDS AT THE [facility] Home Med (Ropinirole [Requip]) 1 mg PO TID COUNTS INCLUDE 234 BEDS AT THE [facility] Hydrochlorothiazide (Hydrodiuril) 25 mg PO DAILY [facility]S INCLUDE 234 BEDS AT THE [facility] Last Admin: 07/24/17 10:18 Dose: 25 mg Piperacillin Sod/Tazobactam (Sod 3.375 gm/ Sodium Chloride) 100 mls @ 100 mls/ hr IVPB 0500,1100,1700,2200 COUNTS INCLUDE 234 BEDS AT THE [facility] Last Admin: 07/25/17 05:18 Dose: 100 mls/hr Insulin Human Regular (Humulin R) 0 units SC ACCU-CHECK COUNTS INCLUDE 234 BEDS AT THE [facility] PRN Reason: Protocol Last Admin: 07/25/17 07:32 Dose: Not Given Losartan Potassium (Cozaar) 50 mg PO DAILY COUNTS INCLUDE 234 BEDS AT THE [facility] Last Admin: 07/24/17 09:07 Dose: 50 mg Magnesium Hydroxide (Milk Of Magnesia) 30 ml PO HS PRN PRN Reason: Constipation Metoprolol Tartrate (Lopressor) 50 mg PO Q12 COUNTS INCLUDE 234 BEDS AT THE [facility] Last Admin: 07/24/17 22:02 Dose: 50 mg Morphine Sulfate (Morphine) 2 mg IVP Q4 PRN PRN Reason: Pain, severe (8-10) Multivitamins/Minerals (Therapeutic-M Tab) 1 tab PO DAILY [facility]S INCLUDE 234 BEDS AT THE [facility] Last Admin: 07/24/17 09:07 Dose: 1 tab Nitroglycerin (Nitrostat Sl Tab) 0.4 mg SL Q5MIN PRN PRN Reason: chest pain Oxybutynin Chloride (Ditropan Tab) 5 mg PO DAILY [facility]S INCLUDE 234 BEDS AT THE [facility] Last Admin: 07/24/17 09:07 Dose: 5 mg Sitagliptin Phosphate (Januvia) 100 mg PO DAILY COUNTS INCLUDE 234 BEDS AT THE [facility] Last Admin: 07/24/17 09:07 Dose: 100 mg - Labs Labs: 07/25/17 05:38 07/25/17 05:38 PT 12.4 Seconds (9.8-13.1) 07/23/17 17:55 INR 1.2 (0.9-1.2) 07/23/17 17:55 APTT 49.9 Seconds (25.6-37.1) H D 07/25/17 05:38 - Constitutional Appears: Non-toxic - Head Exam Head Exam: NORMAL INSPECTION - Eye Exam Eye Exam: Normal appearance - ENT Exam ENT Exam: Mucous Membranes Moist - Respiratory Exam Respiratory Exam: NORMAL BREATHING PATTERN - Cardiovascular Exam Cardiovascular Exam: REGULAR RHYTHM - GI/Abdominal Exam GI & Abdominal Exam: Normal Bowel Sounds - Rectal Exam Rectal Exam: Deferred - Extremities Exam Extremities Exam: absent: Pedal Edema - Back Exam Back Exam: NORMAL INSPECTION - Neurological Exam Neurological Exam: Alert - Psychiatric Exam Psychiatric exam: Normal Affect - Skin Skin Exam: Normal Color Assessment and Plan (1) Peripheral arterial disease Assessment & Plan: patient has previous endovascular inervention of the left peroneal artery. recommend continued antibiotic therapy. arterial duplex noted. I will await results of CT angiogram. Given contrast dye given for CT I will await minimum 48 to 72 hrs to perform angiogram as patient is at increased risk of contrast induced nephropathy. Can d/c heparin. I will schedule peripheral angiogram and possible intervention to be performed at [facility] on 07/28. Status: Deleted (2) CAD (coronary artery disease) Assessment & Plan: antiplatelet therapy Status: Acute (3) Diabetes mellitus Assessment & Plan: risk factor for PAD Status: Chronic (4) Hypertension Status: Chronic
[2017-07-25] MEDS: Multivitamin With Minerals Tab PO SCH (08:54)
[2017-07-25] MEDS ORDERED: Heparin 25,000units in D5W 25,000 UNITS/250 ML BAG IV SCH (12:15)
--- NOTE | 2017-07-25 13:24 | CP.PCM.CON ---
History of Present Illness - History of Present Illness History of Present Illness: 87 year old male with PMH HTN, DM, PAD, who presents with cellulitis of the left lower extremity. The patient had a previous endovascular intervention of the left LE. 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 The patient was transferred to [facility] for further management. He is s/p CT angiogram for possible endovascular intervention Friday Review of Systems - Constitutional Constitutional: absent: As Per HPI, Anorexia, Chills, Daytime Sleepiness, Excessive Sweating, Fatigue, Fever, Frequent Falls, Headache, Increased Appetite , Lethargy, Malaise, Night Sweats, Snoring, Sleep Apnea, Weight Gain, Weight Loss, Weakness, Other - EENT Eyes: absent: As Per HPI, Blind Spots, Blurred Vision, Change in Vision, Decreased Night Vision, Diplopia, Discharge, Dry Eye, Exophthalmos, Floaters, Irritation, Itchy Eyes, Loss of Peripheral Vision, Pain, Photophobia, Requires Corrective Lenses, Sees Flashes, Spots in Vision, Tunnel Vision, Other Visual Disturbances, Loss of Vision, Other Ears: absent: As Per HPI, Decreased Hearing, Ear Discharge, Ear Pain, Tinnitus, Abnormal Hearing, Disequilibrium, Dizziness, Other Nose/Mouth/Throat: absent: As Per HPI, Epistaxis, Nasal Congestion, Nasal Discharge, Nasal Obstruction, Nasal Trauma, Nose Pain, Post Nasal Drip, Sinus Pain, Sinus Pressure, Bleeding Gums, Change in Voice, Dental Pain, Dry Mouth, Dysphagia, Halitosis, Hoarsness, Lip Swelling, Mouth Lesions, Mouth Pain, Odynophagia, Sore Throat, Throat Swelling, Tongue Swelling, Facial Pain, Neck Pain, Neck Mass, Other - Cardiovascular Cardiovascular: absent: As Per HPI, Acrocyanosis, Chest Pain, Chest Pain at Rest , Chest Pain with Activity, Claudication, Diaphoresis, Dyspnea, Dyspnea on Exertion, Edema, Irregular Heart Rhythm, Pain Radiating to Arm/Neck/Jaw, Leg Edema, Leg Ulcers, Lightheadedness, Orthopnea, Palpitations, Paroxysmal Nocturnal Dyspnea, Pedal Edema, Radiating Pain, Rapid Heart Rate, Slow Heart Rate, Syncope, Other - Respiratory Respiratory: absent: As Per HPI, Cough, Dyspnea, Hemoptysis, Dyspnea on Exertion , Wheezing, Snoring, Stridor, Pain on Inspiration, Chest Congestion, Excessive Mucous Production, Change in Mucous Color, Pain with Coughing, Other - Gastrointestinal Gastrointestinal: absent: As Per HPI, Abdominal Pain, Belching, Bloating, Change in Bowel Habits, Change in Stool Character, Coffee Ground Emesis, Constipation, Cramping, Diarrhea, Dyspepsia, Dysphagia, Early Satiety, Excessive Flatus, Fecal Incontinence, Heartburn, Hematemesis, Hematochezia, Loose Stools, Melena, Nausea, Odynophagia, Temesmus, Vomiting, Other - Genitourinary Genitourinary: absent: As Per HPI, Change in Urinary Stream, Difficulty Urinating, Dysuria, Flank Pain, Hematuria, Pyuria, Nocturia, Urinary Incontinence, Urinary Frequency, Urinary Hesitance, Urinary Urgency, Voiding Freq/Small Amts, Freq UTI, Hx Renal/Bladder Calculi, Hx /Renal Surgery, Bladder Distension, Other - Musculoskeletal Musculoskeletal: Radiating Pain into Limb - Integumentary Integumentary: absent: As Per HPI, Acne, Alopecia, Bleeding Lesions, Change in Hair, Change in Nails, Change in Pigmentation, Changing Lesions, Dry Skin, Erythema, Furuncle, Hirsutism, Lesions, New Lesions, Non-Healing Lesions, Photosensitivity, Pruritus, Rash, Skin Pain, Skin Ulcer, Sores, Striae, Swelling , Unusual Bruising, Wounds, Jaundice, Other - Neurological Neurological: absent: As Per HPI, Abnormal Gait, Abnormal Hearing, Abnormal Movements, Abnormal Speech, Behavioral Changes, Burning Sensations, Confusion, Convulsions, Disequilibrium, Dizziness, Numbness, Focal Weakness, Frequent Falls , Headaches, Lack of Coordination, Loss of Vision, Memory Loss, Paresthesias, Radicular Pain, Restless Legs, Sensory Deficit, Syncope, Tingling, Tremor, Vertigo, Weakness, Other Visual Disturbances, Other - Psychiatric Psychiatric: absent: As Per HPI, Abnormal Sleep Pattern, Anhedonia, Anxiety, Auditory Hallucinations, Behavioral Changes, Change in Appetite, Change in Libido, Confusion, Depression, Difficulty Concentrating, Hallucinations, Homicidal Ideation, Hopelessness, Irritability, Memory Loss, Mood Swings, Panic Attacks, Paranoia, Suicidal Ideation, Visual Hallucinations, Tactile Hallucinations, Other - Endocrine Endocrine: absent: As Per HPI, Change in Body Appearance, Change in Libido, Cold Intolorance, Deepening of Voice, Excessive Sweating, Fatigue, Flushing, Heat Intolorance, Increase in Ring/Shoe/Hat Size, Palpitations, Polydipsia, Polyphagia, Polyuria, Other - Hematologic/Lymphatic Hematologic: absent: As Per HPI, Easy Bleeding, Easy Bruising, Lymphadenopathy, Other Past Patient History - Infectious Disease Hx of Infectious Diseases: None - Tetanus Immunizations Tetanus Immunization: Unknown - Past Medical History & Family History Past Medical History?: Yes - Past Social History Smoking Status: Never Smoked Alcohol: None Drugs: Denies Home Situation {Lives}: Care Home - CARDIAC Hx Cardiac Disorders: Yes Hx Congestive Heart Failure: Yes Hx Hypercholesterolemia: Yes Hx Hypertension: Yes Hx Pacemaker: No - PULMONARY Hx Respiratory Disorders: Yes - NEUROLOGICAL Hx Neurological Disorder: No - HEENT Hx HEENT Problems: No - RENAL Hx Chronic Kidney Disease: No - ENDOCRINE/METABOLIC Hx Endocrine Disorders: Yes - HEMATOLOGICAL/ONCOLOGICAL Hx Blood Disorders: No - INTEGUMENTARY Hx Dermatological Problems: No - MUSCULOSKELETAL/RHEUMATOLOGICAL Hx Arthritis: Yes Hx Falls: No Hx Unsteady Gait: Yes (ambulates with rolling walker) - GASTROINTESTINAL Hx Gastrointestinal Disorders: No Hx Gastroesophageal Reflux: Yes - GENITOURINARY/GYNECOLOGICAL Hx Genitourinary Disorders: Yes - PSYCHIATRIC Hx Substance Use: No - SURGICAL HISTORY Hx Coronary Artery Bypass Graft: Yes Hx Coronary Stent: Yes Other/Comment: amputation of left 4th and 5th metatarsal - ANESTHESIA Hx Anesthesia: No Hx Anesthesia Reactions: No Hx Malignant Hyperthermia: No Meds Allergies/Adverse Reactions: Allergies Allergy/AdvReac Type Severity Reaction Status Date / Time No Known Allergies Allergy Verified 05/30/17 10:12 - Medications Medications: Current Medications Acetaminophen (Tylenol 325mg Tab) 650 mg PO Q4 PRN PRN Reason: Fever >100.4 F Acetaminophen (Tylenol 325mg Tab) 650 mg PO Q4 PRN PRN Reason: Pain, Mild (1-3) Atorvastatin Calcium (Lipitor) 40 mg PO HS [facility] Last Admin: 07/24/17 22:02 Dose: 40 mg Bisacodyl (Dulcolax) 10 mg RC DAILY PRN PRN Reason: Constipation Gabapentin (Neurontin) 100 mg PO TID [facility] Last Admin: 07/25/17 12:35 Dose: 100 mg Heparin Sodium (Porcine) (Heparin) 5,000 units SC Q12 [facility] PRN Reason: Protocol Home Med (Ranolazine [Ranexa]) 500 mg PO BID [facility] Home Med (Ropinirole [Requip]) 1 mg PO TID [facility] Hydrochlorothiazide (Hydrodiuril) 25 mg PO DAILY [facility] Last Admin: 07/25/17 08:54 Dose: 25 mg Piperacillin Sod/Tazobactam (Sod 3.375 gm/ Sodium Chloride) 100 mls @ 100 mls/ hr IVPB 0500,1100,1700,2200 [facility] Last Admin: 07/25/17 10:53 Dose: 100 mls/hr Insulin Human Regular (Humulin R) 0 units SC ACCU-CHECK [facility] PRN Reason: Protocol Last Admin: 07/25/17 12:34 Dose: 2 units Losartan Potassium (Cozaar) 50 mg PO DAILY [facility] Last Admin: 07/25/17 10:53 Dose: 50 mg Magnesium Hydroxide (Milk Of Magnesia) 30 ml PO HS PRN PRN Reason: Constipation Metoprolol Tartrate (Lopressor) 50 mg PO Q12 [facility] Last Admin: 07/25/17 08:55 Dose: 50 mg Morphine Sulfate (Morphine) 2 mg IVP Q4 PRN PRN Reason: Pain, severe (8-10) Multivitamins/Minerals (Therapeutic-M Tab) 1 tab PO DAILY [facility] Last Admin: 07/25/17 08:54 Dose: 1 tab Nitroglycerin (Nitrostat Sl Tab) 0.4 mg SL Q5MIN PRN PRN Reason: chest pain Oxybutynin Chloride (Ditropan Tab) 5 mg PO DAILY [facility] Last Admin: 07/25/17 08:54 Dose: 5 mg Sitagliptin Phosphate (Januvia) 100 mg PO DAILY [facility] Last Admin: 07/25/17 08:54 Dose: 100 mg Physical Exam - Constitutional Appears: Non-toxic, Cachectic, Chronically Ill - Head Exam Head Exam: NORMOCEPHALIC - Eye Exam Eye Exam: PERRL. absent: Nystagmus, Scleral icterus - ENT Exam ENT Exam: Mucous Membranes Dry, Normal External Ear Exam, Normal Oropharynx - Neck Exam Neck exam: Negative for: Lymphadenopathy, Thyromegaly - Respiratory Exam Respiratory Exam: Decreased Breath Sounds, Clear to Auscultation Bilateral - Cardiovascular Exam Cardiovascular Exam: REGULAR RHYTHM, +S1, +S2 - GI/Abdominal Exam GI & Abdominal Exam: Diminished Bowel Sounds, Soft. absent: Tenderness - Rectal Exam Rectal Exam: Deferred - Exam Exam: NORMAL INSPECTION - Extremities Exam Extremities exam: Positive for: tenderness. Negative for: calf tenderness, pedal edema, pedal pulses present Additional comments: 4th and 5th toe amp sites clean/ dry min redness no pus LLE - Back Exam Back exam: absent: CVA tenderness (L), CVA tenderness (R) - Neurological Exam Neurological exam: Alert, CN II-XII Intact, Oriented x3, Reflexes Normal - Psychiatric Exam Psychiatric exam: Normal Mood - Skin Skin Exam: Dry, Intact Results - Vital Signs Recent Vital Signs: Last Vital Signs Temp 98.0 F 07/25/17 08:47 Pulse 65 07/25/17 10:53 Resp 18 07/25/17 08:47 BP 112/66 07/25/17 10:53 Pulse Ox 96 07/25/17 08:47 - Labs Result Diagrams: 07/25/17 05:38 07/25/17 05:38 Labs: Laboratory Results - last 24 hr 07/24/17 07/24/17 07/24/17 15:18 16:22 22:03 WBC RBC Hgb Hct MCV MCH MCHC RDW Plt Count APTT 45.9 H D Sodium Potassium Chloride Carbon Dioxide Anion Gap BUN Creatinine Est GFR ( Amer) Est GFR (Non-Af Amer) POC Glucose (mg/dL) 154 H 138 H Random Glucose Calcium 07/24/17 07/25/17 07/25/17 22:04 05:38 05:38 WBC 9.1 RBC 4.39 L Hgb 12.1 Hct 37.1 MCV 84.3 MCH 27.5 MCHC 32.6 L RDW 16.9 H Plt Count 244 APTT 81.6 H D Sodium 141 Potassium 4.6 Chloride 107 Carbon Dioxide 28 Anion Gap 11 BUN 13 Creatinine 1.1 Est GFR ( Amer) > 60 Est GFR (Non-Af Amer) > 60 POC Glucose (mg/dL) Random Glucose 122 H Calcium 9.2 07/25/17 07/25/17 07/25/17 05:38 06:34 10:50 WBC RBC Hgb Hct MCV MCH MCHC RDW Plt Count APTT 49.9 H D 42.9 H D Sodium Potassium Chloride Carbon Dioxide Anion Gap BUN Creatinine Est GFR ( Amer) Est GFR (Non-Af Amer) POC Glucose (mg/dL) 110 Random Glucose Calcium Assessment & Plan (1) Cellulitis Status: Acute (2) Cellulitis of left lower extremity Status: Acute (3) PVD (peripheral vascular disease) Status: Acute Priority: High (4) Hx of heart artery stent Status: Chronic (5) CAD (coronary artery disease) Status: Acute (6) Cellulitis of foot Status: Acute Priority: High (7) Ischemia of foot Status: Acute Priority: High (8) Leg pain Status: Acute (9) Neuropathy Status: Acute - Assessment and Plan (Free Text) Assessment: await cultures cot empiric rx
--- NOTE | 2017-07-25 14:56 | CP.PCM.PN ---
Subjective - Date & Time of Evaluation Date of Evaluation: 07/25/17 Time of Evaluation: 13:00 - Subjective Subjective: F/U L foot Cellulite Pt with less pain in L foot. Objective - Vital Signs/Intake and Output Vital Signs (last 24 hours): Temp Pulse Resp BP Pulse Ox 98.0 F 65 18 112/66 96 07/25/17 08:47 07/25/17 10:53 07/25/17 08:47 07/25/17 10:53 07/25/17 08:47 - Medications Medications: Current Medications Acetaminophen (Tylenol 325mg Tab) 650 mg PO Q4 PRN PRN Reason: Fever >100.4 F Acetaminophen (Tylenol 325mg Tab) 650 mg PO Q4 PRN PRN Reason: Pain, Mild (1-3) Atorvastatin Calcium (Lipitor) 40 mg PO HS [facility] Last Admin: 07/24/17 22:02 Dose: 40 mg Bisacodyl (Dulcolax) 10 mg RC DAILY PRN PRN Reason: Constipation Gabapentin (Neurontin) 100 mg PO TID [facility] Last Admin: 07/25/17 12:35 Dose: 100 mg Heparin Sodium (Porcine) (Heparin) 5,000 units SC Q12 [facility] PRN Reason: Protocol Home Med (Ranolazine [Ranexa]) 500 mg PO BID [facility] Home Med (Ropinirole [Requip]) 1 mg PO TID [facility] Hydrochlorothiazide (Hydrodiuril) 25 mg PO DAILY [facility] Last Admin: 07/25/17 08:54 Dose: 25 mg Piperacillin Sod/Tazobactam (Sod 3.375 gm/ Sodium Chloride) 100 mls @ 100 mls/ hr IVPB 0500,1100,1700,2200 [facility] Last Admin: 07/25/17 10:53 Dose: 100 mls/hr Insulin Human Regular (Humulin R) 0 units SC ACCU-CHECK [facility] PRN Reason: Protocol Last Admin: 07/25/17 12:34 Dose: 2 units Losartan Potassium (Cozaar) 50 mg PO DAILY [facility] Last Admin: 07/25/17 10:53 Dose: 50 mg Magnesium Hydroxide (Milk Of Magnesia) 30 ml PO HS PRN PRN Reason: Constipation Metoprolol Tartrate (Lopressor) 50 mg PO Q12 [facility] Last Admin: 07/25/17 08:55 Dose: 50 mg Morphine Sulfate (Morphine) 2 mg IVP Q4 PRN PRN Reason: Pain, severe (8-10) Multivitamins/Minerals (Therapeutic-M Tab) 1 tab PO DAILY [facility] Last Admin: 07/25/17 08:54 Dose: 1 tab Nitroglycerin (Nitrostat Sl Tab) 0.4 mg SL Q5MIN PRN PRN Reason: chest pain Oxybutynin Chloride (Ditropan Tab) 5 mg PO DAILY [facility] Last Admin: 07/25/17 08:54 Dose: 5 mg Sitagliptin Phosphate (Januvia) 100 mg PO DAILY [facility] Last Admin: 07/25/17 08:54 Dose: 100 mg - Labs Labs: 07/25/17 05:38 07/25/17 05:38 PT 12.4 Seconds (9.8-13.1) 07/23/17 17:55 INR 1.2 (0.9-1.2) 07/23/17 17:55 APTT 42.9 Seconds (25.6-37.1) H D 07/25/17 10:50 - Constitutional Appears: No Acute Distress, Chronically Ill - Head Exam Head Exam: NORMAL INSPECTION - Eye Exam Eye Exam: PERRL - ENT Exam ENT Exam: Normal Exam - Neck Exam Neck Exam: Normal Inspection - Respiratory Exam Respiratory Exam: NORMAL BREATHING PATTERN - Cardiovascular Exam Cardiovascular Exam: REGULAR RHYTHM - GI/Abdominal Exam GI & Abdominal Exam: Soft, Normal Bowel Sounds - Extremities Exam Extremities Exam: Tenderness (L foot, L grat toe, pedal pulse present + 1 weak b /l.) Additional comments: Amputation of 4th and 5th toe. - Back Exam Back Exam: NORMAL INSPECTION - Neurological Exam Neurological Exam: Alert, CN II-XII Intact, Oriented x3 Additional comments: Flexes normal - Psychiatric Exam Psychiatric exam: Normal Mood - Skin Skin Exam: Warm Assessment and Plan (1) Cellulitis of foot Status: Acute (2) PVD (peripheral vascular disease) Status: Acute (3) Ischemia of foot Status: Acute (4) Diabetes mellitus Status: Chronic (5) Hyperglycemia Status: Acute (6) Hypertension Status: Chronic (7) CHF (congestive heart failure) Status: Chronic (8) History of coronary artery disease Status: Chronic (9) Hx of heart artery stent Status: Chronic (10) 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 Angiogram LLE suspicious for infection/OM. ID consult.
--- NOTE | 2017-07-25 16:26 | MRI ---
PROCEDURE: MRI left foot without contrast HISTORY: R/O Osteo COMPARISON: Comparison is made to the previous x-ray of the left foot dated 07/22/2017 TECHNIQUE: Axial coronal and sagittal MRI images of the left foot were obtained without IV contrast administration. FINDINGS: There is focal bone marrow edema and cortical erosion/ destruction at the distal portion of the distal phalanx recto highly suspicious for osteomyelitis. There is bone marrow edema at the tip of the 3rd metatarsal bone and at the base of the proximal phalanx of the 3rd toe may represent arthritic changes. The possibility of an air early osteomyelitis is not totally excluded. There are also arthritic changes associated with small joint effusion and adjacent cortical irregularity and increased bone marrow signal seen at the 1st and 2nd metatarsal pharyngeal joints. The patient status post amputation of the 4th and 5th distal metatarsal bone and 4th and 5th toes. There is mild diffuse increase signal in the soft tissue suggestive of mild edema. There is also due diffuse increase signal in the muscles suggestive of myositis. No evidence of discrete abscess formation. Moderate osteoarthritic changes are also noted at the tarsal and tarsal metatarsal joints. There is moderate amount of fluid noted around the posterior tibialis tendon suggestive of moderate tendinopathy . IMPRESSION: Hyperintense bone marrow signal and cortical erosion at the distal portion of the distal phalanx of the 1st toe highly suspicious for osteomyelitis. Bone marrow edema seen at both side of the 3rd metatarsal-phalangeal joint could be due to severe arthritis. The possibility of an early osteomyelitis or less likely septic arthritis is not totally excluded. Moderate osteoarthritic and degenerative changes. Moderate amount of fluid around the posterior tibialis tendon suggestive of tendinopathy.
--- NOTE | 2017-07-25 16:49 | US ---
PROCEDURE: Duplex ultrasound of the bilateral lower extremity arteries. HISTORY: pvd COMPARISON: Comparison is made to the previous study dated 07/22/2017 of the left lower extremity TECHNIQUE: Grayscale and duplex Doppler evaluation of the bilateral common femoral, superficial femoral, popliteal, posterior tibial and dorsalis pedis arteries was performed.. FINDINGS: RIGHT LOWER EXTREMITY: RIGHT COMMON FEMORAL ARTERY: Patent demonstrate moderate atherosclerotic disease and normal triphasic wave. Maximal flow velocity of 98.7 cm/s. RIGHT SUPERFICIAL FEMORAL ARTERY: Patent demonstrate [id number] atherosclerotic disease. Three phasic waveform is also seen. Maximal flow velocity of 56.8 cm/s. RIGHT POPLITEAL ARTERY:Patent demonstrate mild atherosclerotic disease and biphasic Maximal flow velocity of 43.4 cm/s. RIGHT POSTERIOR TIBIAL ARTERY: Patent with slow blood flow Maximal flow velocity of 20.2 cm/s. RIGHT DORSALIS PEDIS ARTERY: Patent demonstrate arterial blood flow Maximal flow velocity of 28.1 cm/s. LEFT LOWER EXTREMITY: LEFT COMMON FEMORAL ARTERY: Patent. Maximal flow velocity of 69.4 cm/s. LEFT SUPERFICIAL FEMORAL ARTERY: Patent demonstrate mild atherosclerotic disease Maximal flow velocity of 108.7 cm/s. LEFT POPLITEAL ARTERY:Patent Maximal flow velocity of 43.8 cm/s. LEFT POSTERIOR TIBIAL ARTERY: No blood flow appreciated. . LEFT DORSALIS PEDIS ARTERY: Not visualized and no blood flow appreciated. OTHER FINDINGS: None. IMPRESSION: [id number] diffuse atherosclerotic disease. Monophasic waveform noted at the distal right lower extremity arteries [id number]. No blood flow appreciated at the posterior tibial artery and dorsalis pedis artery on the left, likely occluded.
[2017-07-26] MEDS: Piperacillin/Tazobact 3.375 GM in Sodium Chloride 0.9% 100 ML IVPB SCH ×4 (05:00→21:18)
[2017-07-26] MEDS: Insulin Regular 100 units/ml SC SCH ×4 (06:29→22:51)
[2017-07-26] MEDS: Multivitamin With Minerals Tab PO SCH (09:54)
--- NOTE | 2017-07-26 13:26 | CP.PCM.PN ---
Subjective - Date & Time of Evaluation Date of Evaluation: 07/26/17 Time of Evaluation: 12:00 - Subjective Subjective: 87 y/o male seen at bedside with attending Dr. Chen for left great toe and left lower extremity pain. Patient is in NAD and is AAOx3. Patient states that he still has little pain in his LLE but it has gone down a lot since he came to the ED. Patient denies of any acute overnight events. Patient denies of any other pedal complains at this time. Patient denies of any F/N/V/C/SOB at this time. Objective - Vital Signs/Intake and Output Vital Signs (last 24 hours): Temp Pulse Resp BP Pulse Ox 98.2 F 64 20 118/70 98 07/26/17 08:46 07/26/17 09:55 07/26/17 08:46 07/26/17 09:55 07/26/17 08:46 - Medications Medications: Current Medications Acetaminophen (Tylenol 325mg Tab) 650 mg PO Q4 PRN PRN Reason: Fever >100.4 F Acetaminophen (Tylenol 325mg Tab) 650 mg PO Q4 PRN PRN Reason: Pain, Mild (1-3) Atorvastatin Calcium (Lipitor) 40 mg PO HS [facility] Last Admin: 07/25/17 21:19 Dose: 40 mg Bisacodyl (Dulcolax) 10 mg RC DAILY PRN PRN Reason: Constipation Gabapentin (Neurontin) 100 mg PO TID [facility] Last Admin: 07/26/17 09:54 Dose: 100 mg Heparin Sodium (Porcine) (Heparin) 5,000 units SC Q12 [facility] PRN Reason: Protocol Last Admin: 07/26/17 09:54 Dose: 5,000 units Home Med (Ranolazine [Ranexa]) 500 mg PO BID [facility] Home Med (Ropinirole [Requip]) 1 mg PO TID [facility] Hydrochlorothiazide (Hydrodiuril) 25 mg PO DAILY [facility] Last Admin: 07/25/17 08:54 Dose: 25 mg Piperacillin Sod/Tazobactam (Sod 3.375 gm/ Sodium Chloride) 100 mls @ 100 mls/ hr IVPB 0500,1100,1700,2200 [facility] Last Admin: 07/26/17 05:00 Dose: 100 mls/hr Insulin Human Regular (Humulin R) 0 units SC ACCU-CHECK [facility] PRN Reason: Protocol Last Admin: 07/26/17 06:29 Dose: Not Given Losartan Potassium (Cozaar) 50 mg PO DAILY [facility] Last Admin: 07/26/17 09:54 Dose: 50 mg Magnesium Hydroxide (Milk Of Magnesia) 30 ml PO HS PRN PRN Reason: Constipation Metoprolol Tartrate (Lopressor) 50 mg PO Q12 [facility] Last Admin: 07/26/17 09:55 Dose: 50 mg Morphine Sulfate (Morphine) 2 mg IVP Q4 PRN PRN Reason: Pain, severe (8-10) Multivitamins/Minerals (Therapeutic-M Tab) 1 tab PO DAILY [facility] Last Admin: 07/26/17 09:54 Dose: 1 tab Nitroglycerin (Nitrostat Sl Tab) 0.4 mg SL Q5MIN PRN PRN Reason: chest pain Oxybutynin Chloride (Ditropan Tab) 5 mg PO DAILY [facility] Last Admin: 07/26/17 09:54 Dose: 5 mg Sitagliptin Phosphate (Januvia) 100 mg PO DAILY [facility] Last Admin: 07/26/17 09:54 Dose: 100 mg - Labs Labs: 07/25/17 05:38 07/25/17 05:38 PT 12.4 Seconds (9.8-13.1) 07/23/17 17:55 INR 1.2 (0.9-1.2) 07/23/17 17:55 APTT 42.9 Seconds (25.6-37.1) H D 07/25/17 10:50 - Constitutional Appears: Well, Non-toxic, No Acute Distress - Extremities Exam Additional comments: Bilateral Lower Extremity Exam: VASC: DP/PT pulses are palpable 1/4 bilaterally, PORTER [place]GGAGE: < 3 sec b/l, TG: warm to cool from proximal to distal, no pitting or non-pitting edema noted DERM: left lower extremity distally at the foot and hallux appears to have mild erythema, left hallucal nail appears to be mildly detached from the nail bed distally, nails on the hallux appears to be dystrophic, discolored, and hyperkeratotic in nature, no open lesions, no interdigital macerations, no clinical suspicion of active infection noted at this time NEURO: protective and motor sensation grossly intact ORTHO: mild pain on palpation of the medial and lateral border of the left hallucal nail bed, Amputation of the 4th and 5th digit noted on the left foot, no pain on palpation/squeeze of the calf bilaterally - Neurological Exam Neurological Exam: Alert, Awake, Oriented x3 - Psychiatric Exam Psychiatric exam: Normal Affect, Normal Mood Assessment and Plan - Assessment and Plan (Free Text) Assessment: 87 y/o male seen at bedside for redness, swelling and pain in his left lower extremity secondary to 1). PVD 2). Cellulitis Plan: Patient seen and evaluated at bedside with attending Dr. Chen Charts, labs and vitals reviewed; WBC @ 9.1 as of yesterday, afebrile No dressing applied at this time No surgical intervention planned at this time Awaiting results of CT angiogram before determining course of action - Dr. Mckeon plans for this on 07/28 Continue IV abx as per ID Podiatry will continue to follow while patient remains in house
--- NOTE | 2017-07-26 16:48 | CP.PCM.PN ---
Subjective - Date & Time of Evaluation Date of Evaluation: 07/26/17 Time of Evaluation: 16:00 - Subjective Subjective: F/U L foot cellulites. Pt awake, with less pain in LLE. Objective - Vital Signs/Intake and Output Vital Signs (last 24 hours): Temp Pulse Resp BP Pulse Ox 98.3 F 63 19 103/64 98 07/26/17 16:22 07/26/17 16:22 07/26/17 16:22 07/26/17 16:22 07/26/17 16:22 - Medications Medications: Current Medications Acetaminophen (Tylenol 325mg Tab) 650 mg PO Q4 PRN PRN Reason: Fever >100.4 F Acetaminophen (Tylenol 325mg Tab) 650 mg PO Q4 PRN PRN Reason: Pain, Mild (1-3) Atorvastatin Calcium (Lipitor) 40 mg PO HS [facility] Last Admin: 07/25/17 21:19 Dose: 40 mg Bisacodyl (Dulcolax) 10 mg RC DAILY PRN PRN Reason: Constipation Gabapentin (Neurontin) 100 mg PO TID [facility] Last Admin: 07/26/17 09:54 Dose: 100 mg Heparin Sodium (Porcine) (Heparin) 5,000 units SC Q12 [facility] PRN Reason: Protocol Last Admin: 07/26/17 09:54 Dose: 5,000 units Home Med (Ranolazine [Ranexa]) 500 mg PO BID [facility] Home Med (Ropinirole [Requip]) 1 mg PO TID [facility] Hydrochlorothiazide (Hydrodiuril) 25 mg PO DAILY [facility] Last Admin: 07/25/17 08:54 Dose: 25 mg Piperacillin Sod/Tazobactam (Sod 3.375 gm/ Sodium Chloride) 100 mls @ 100 mls/ hr IVPB 0500,1100,1700,2200 [facility] Last Admin: 07/26/17 05:00 Dose: 100 mls/hr Insulin Human Regular (Humulin R) 0 units SC ACCU-CHECK [facility] PRN Reason: Protocol Last Admin: 07/26/17 06:29 Dose: Not Given Losartan Potassium (Cozaar) 50 mg PO DAILY [facility] Last Admin: 07/26/17 09:54 Dose: 50 mg Magnesium Hydroxide (Milk Of Magnesia) 30 ml PO HS PRN PRN Reason: Constipation Metoprolol Tartrate (Lopressor) 50 mg PO Q12 [facility] Last Admin: 07/26/17 09:55 Dose: 50 mg Morphine Sulfate (Morphine) 2 mg IVP Q4 PRN PRN Reason: Pain, severe (8-10) Multivitamins/Minerals (Therapeutic-M Tab) 1 tab PO DAILY [facility] Last Admin: 07/26/17 09:54 Dose: 1 tab Nitroglycerin (Nitrostat Sl Tab) 0.4 mg SL Q5MIN PRN PRN Reason: chest pain Oxybutynin Chloride (Ditropan Tab) 5 mg PO DAILY [facility] Last Admin: 07/26/17 09:54 Dose: 5 mg Sitagliptin Phosphate (Januvia) 100 mg PO DAILY [facility] Last Admin: 07/26/17 09:54 Dose: 100 mg - Labs Labs: 07/25/17 05:38 07/25/17 05:38 PT 12.4 Seconds (9.8-13.1) 07/23/17 17:55 INR 1.2 (0.9-1.2) 07/23/17 17:55 APTT 42.9 Seconds (25.6-37.1) H D 07/25/17 10:50 - Constitutional Appears: No Acute Distress, Chronically Ill - Eye Exam Eye Exam: PERRL - ENT Exam ENT Exam: Normal Exam - Neck Exam Neck Exam: Normal Inspection - Respiratory Exam Respiratory Exam: NORMAL BREATHING PATTERN - Cardiovascular Exam Cardiovascular Exam: REGULAR RHYTHM - GI/Abdominal Exam GI & Abdominal Exam: Soft, Normal Bowel Sounds - Extremities Exam Extremities Exam: Tenderness (less L foot.) Additional comments: swelling LLE, L foot, pedal pulse present +1 weak b/l. - Back Exam Back Exam: NORMAL INSPECTION - Neurological Exam Neurological Exam: Alert, Oriented x3 Additional comments: Reflex normal - Psychiatric Exam Psychiatric exam: Normal Mood - Skin Skin Exam: Erythema (LLE), Warm Assessment and Plan (1) Cellulitis of foot Status: Acute (2) PVD (peripheral vascular disease) Status: Acute (3) Ischemia of foot Status: Acute (4) Diabetes mellitus Status: Chronic (5) Hyperglycemia Status: Acute (6) Hypertension Status: Chronic (7) CHF (congestive heart failure) Status: Chronic (8) History of coronary artery disease Status: Chronic (9) Hx of heart artery stent Status: Chronic (10) 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 Continue current abx Tx, ID consult appreciated.
[2017-07-27] MEDS: Piperacillin/Tazobact 3.375 GM in Sodium Chloride 0.9% 100 ML IVPB SCH ×4 (04:36→21:07)
[2017-07-27] MEDS: Insulin Regular 100 units/ml SC SCH ×4 (06:58→22:00)
[2017-07-27] MEDS: Multivitamin With Minerals Tab PO SCH (08:47)
--- NOTE | 2017-07-27 13:15 | CP.PCM.PN ---
Subjective - Date & Time of Evaluation Date of Evaluation: 07/27/17 Time of Evaluation: 07:00 - Subjective Subjective: 87 y/o male seen at bedside for left great toe and left lower extremity pain. Patient states that he still has little pain in his LLE but it has gone down a lot since he came to the ED. Objective - Vital Signs/Intake and Output Vital Signs (last 24 hours): Temp Pulse Resp BP Pulse Ox 97.8 F 76 18 117/68 96 07/27/17 08:22 07/27/17 08:22 07/27/17 08:22 07/27/17 08:46 07/27/17 08:22 - Medications Medications: Current Medications Acetaminophen (Tylenol 325mg Tab) 650 mg PO Q4 PRN PRN Reason: Fever >100.4 F Acetaminophen (Tylenol 325mg Tab) 650 mg PO Q4 PRN PRN Reason: Pain, Mild (1-3) Atorvastatin Calcium (Lipitor) 40 mg PO HS [facility] Last Admin: 07/26/17 21:13 Dose: 40 mg Bisacodyl (Dulcolax) 10 mg RC DAILY PRN PRN Reason: Constipation Gabapentin (Neurontin) 100 mg PO TID [facility] Last Admin: 07/27/17 08:47 Dose: 100 mg Heparin Sodium (Porcine) (Heparin) 5,000 units SC Q12 [facility] PRN Reason: Protocol Last Admin: 07/27/17 08:48 Dose: 5,000 units Home Med (Ranolazine [Ranexa]) 500 mg PO BID [facility] Home Med (Ropinirole [Requip]) 1 mg PO TID [facility] Hydrochlorothiazide (Hydrodiuril) 25 mg PO DAILY [facility] Last Admin: 07/27/17 08:47 Dose: 25 mg Piperacillin Sod/Tazobactam (Sod 3.375 gm/ Sodium Chloride) 100 mls @ 100 mls/ hr IVPB 0500,1100,1700,2200 [facility] Last Admin: 07/27/17 10:45 Dose: 100 mls/hr Insulin Human Regular (Humulin R) 0 units SC ACCU-CHECK [facility] PRN Reason: Protocol Last Admin: 07/27/17 12:44 Dose: 1 units Losartan Potassium (Cozaar) 50 mg PO DAILY [facility] Last Admin: 07/27/17 08:47 Dose: 50 mg Magnesium Hydroxide (Milk Of Magnesia) 30 ml PO HS PRN PRN Reason: Constipation Metoprolol Tartrate (Lopressor) 50 mg PO Q12 [facility] Last Admin: 07/27/17 08:46 Dose: 50 mg Morphine Sulfate (Morphine) 2 mg IVP Q4 PRN PRN Reason: Pain, severe (8-10) Multivitamins/Minerals (Therapeutic-M Tab) 1 tab PO DAILY [facility] Last Admin: 07/27/17 08:47 Dose: 1 tab Nitroglycerin (Nitrostat Sl Tab) 0.4 mg SL Q5MIN PRN PRN Reason: chest pain Oxybutynin Chloride (Ditropan Tab) 5 mg PO DAILY [facility] Last Admin: 07/27/17 08:48 Dose: 5 mg Sitagliptin Phosphate (Januvia) 100 mg PO DAILY [facility] Last Admin: 07/27/17 08:48 Dose: 100 mg - Labs Labs: 07/25/17 05:38 07/25/17 05:38 PT 12.4 Seconds (9.8-13.1) 07/23/17 17:55 INR 1.2 (0.9-1.2) 07/23/17 17:55 APTT 42.9 Seconds (25.6-37.1) H D 07/25/17 10:50 - Constitutional Appears: Non-toxic, Cachectic, Chronically Ill - Head Exam Head Exam: ATRAUMATIC, NORMAL INSPECTION, NORMOCEPHALIC - Eye Exam Eye Exam: PERRL. absent: Scleral icterus - ENT Exam ENT Exam: Mucous Membranes Dry, Normal External Ear Exam - Neck Exam Neck Exam: absent: Lymphadenopathy - Respiratory Exam Respiratory Exam: Decreased Breath Sounds, Clear to Ausculation Bilateral - Cardiovascular Exam Cardiovascular Exam: REGULAR RHYTHM, +S1, +S2 - GI/Abdominal Exam GI & Abdominal Exam: Distended, Soft. absent: Tenderness - Rectal Exam Rectal Exam: Deferred - Exam Exam: NORMAL INSPECTION - Extremities Exam Extremities Exam: Tenderness. absent: Calf Tenderness Additional comments: less pain aand tenderness to left foot 4th and 5th digits ampuatated in past - Back Exam Back Exam: absent: CVA tenderness (L), CVA tenderness (R) - Neurological Exam Neurological Exam: Alert, Awake, Normal Gait - Psychiatric Exam Psychiatric exam: Normal Mood Assessment and Plan (1) Cellulitis Status: Acute (2) Cellulitis of left lower extremity Status: Acute (3) PVD (peripheral vascular disease) Status: Acute (4) Hx of heart artery stent Status: Chronic (5) CAD (coronary artery disease) Status: Acute (6) Cellulitis of foot Status: Acute (7) Ischemia of foot Status: Acute (8) Leg pain Status: Acute (9) Neuropathy Status: Acute - Assessment and Plan (Free Text) Assessment: for possible vascular intervention Dr Mckeon cont iv rx
--- NOTE | 2017-07-27 14:21 | CP.PCM.PN ---
Subjective - Date & Time of Evaluation Date of Evaluation: 07/27/17 Time of Evaluation: 11:45 - Subjective Subjective: Podiatry note for Dr. Chen 87 y/o male seen at bedside for left great toe and left lower extremity pain. Patient is in NAD and is AAOx3. Patient states that he still has little pain in his LLE but it has gone down a lot since he came to the ED. Patient denies of any acute overnight events. Patient denies of any other pedal complains at this time. Patient denies of any F/N/V/C/SOB at this time. Objective - Vital Signs/Intake and Output Vital Signs (last 24 hours): Temp Pulse Resp BP Pulse Ox 97.8 F 76 18 117/68 96 07/27/17 08:22 07/27/17 08:22 07/27/17 08:22 07/27/17 08:46 07/27/17 08:22 - Medications Medications: Current Medications Acetaminophen (Tylenol 325mg Tab) 650 mg PO Q4 PRN PRN Reason: Fever >100.4 F Acetaminophen (Tylenol 325mg Tab) 650 mg PO Q4 PRN PRN Reason: Pain, Mild (1-3) Atorvastatin Calcium (Lipitor) 40 mg PO HS [facility] Last Admin: 07/26/17 21:13 Dose: 40 mg Bisacodyl (Dulcolax) 10 mg RC DAILY PRN PRN Reason: Constipation Gabapentin (Neurontin) 100 mg PO TID [facility] Last Admin: 07/27/17 08:47 Dose: 100 mg Heparin Sodium (Porcine) (Heparin) 5,000 units SC Q12 [facility] PRN Reason: Protocol Last Admin: 07/27/17 08:48 Dose: 5,000 units Home Med (Ranolazine [Ranexa]) 500 mg PO BID [facility] Home Med (Ropinirole [Requip]) 1 mg PO TID [facility] Hydrochlorothiazide (Hydrodiuril) 25 mg PO DAILY [facility] Last Admin: 07/27/17 08:47 Dose: 25 mg Piperacillin Sod/Tazobactam (Sod 3.375 gm/ Sodium Chloride) 100 mls @ 100 mls/ hr IVPB 0500,1100,1700,2200 [facility] Last Admin: 07/27/17 10:45 Dose: 100 mls/hr Insulin Human Regular (Humulin R) 0 units SC ACCU-CHECK [facility] PRN Reason: Protocol Last Admin: 07/27/17 12:44 Dose: 1 units Losartan Potassium (Cozaar) 50 mg PO DAILY [facility] Last Admin: 07/27/17 08:47 Dose: 50 mg Magnesium Hydroxide (Milk Of Magnesia) 30 ml PO HS PRN PRN Reason: Constipation Metoprolol Tartrate (Lopressor) 50 mg PO Q12 [facility] Last Admin: 07/27/17 08:46 Dose: 50 mg Morphine Sulfate (Morphine) 2 mg IVP Q4 PRN PRN Reason: Pain, severe (8-10) Multivitamins/Minerals (Therapeutic-M Tab) 1 tab PO DAILY [facility] Last Admin: 07/27/17 08:47 Dose: 1 tab Nitroglycerin (Nitrostat Sl Tab) 0.4 mg SL Q5MIN PRN PRN Reason: chest pain Oxybutynin Chloride (Ditropan Tab) 5 mg PO DAILY [facility] Last Admin: 07/27/17 08:48 Dose: 5 mg Sitagliptin Phosphate (Januvia) 100 mg PO DAILY [facility] Last Admin: 07/27/17 08:48 Dose: 100 mg - Labs Labs: 07/25/17 05:38 07/25/17 05:38 PT 12.4 Seconds (9.8-13.1) 07/23/17 17:55 INR 1.2 (0.9-1.2) 07/23/17 17:55 APTT 42.9 Seconds (25.6-37.1) H D 07/25/17 10:50 - Constitutional Appears: Well, Non-toxic, No Acute Distress - Extremities Exam Additional comments: Bilateral Lower Extremity Exam: VASC: DP/PT pulses are palpable 1/4 bilaterally, [place]AT [place]: < 3 sec b/l, TG: warm to cool from proximal to distal, no pitting or non-pitting edema noted DERM: left lower extremity distally at the foot and hallux appears to have mild erythema, left hallucal nail appears to be mildly detached from the nail bed distally, nails on the hallux appears to be dystrophic, discolored, and hyperkeratotic in nature, no open lesions, no interdigital macerations, no clinical suspicion of active infection noted at this time NEURO: protective and motor sensation grossly intact ORTHO: mild pain on palpation of the medial and lateral border of the left hallucal nail bed, Amputation of the 4th and 5th digit noted on the left foot, no pain on palpation/squeeze of the calf bilaterally - Neurological Exam Neurological Exam: Alert, Awake, Oriented x3 - Psychiatric Exam Psychiatric exam: Normal Affect, Normal Mood Assessment and Plan - Assessment and Plan (Free Text) Assessment: 87 y/o male seen at bedside for redness, swelling and pain in his left lower extremity secondary to 1). PVD 2). Cellulitis Plan: Patient seen and evaluated at bedside with attending Dr. Chen Charts, labs and vitals reviewed; WBC @ 9.1 as of 07/25, afebrile No dressing applied at this time No surgical intervention planned at this time Awaiting results of CT angiogram before determining course of action - Dr. Mckeon plans for this on 07/28 Continue IV abx as per ID Podiatry will continue to follow while patient remains in house
[2017-07-27] MEDS: Lactobacillus Acidophilus 500 MU Cap PO SCH (16:42)
--- NOTE | 2017-07-27 21:29 | CP.PCM.PN ---
Subjective - Date & Time of Evaluation Date of Evaluation: 07/27/17 Time of Evaluation: 13:00 - Subjective Subjective: Cellulites L foot. Pt with minimal pain in L foot. Objective - Vital Signs/Intake and Output Vital Signs (last 24 hours): Temp Pulse Resp BP Pulse Ox 98 F 61 20 117/61 98 07/27/17 16:27 07/27/17 21:12 07/27/17 16:27 07/27/17 21:12 07/27/17 16:27 - Medications Medications: Current Medications Acetaminophen (Tylenol 325mg Tab) 650 mg PO Q4 PRN PRN Reason: Fever >100.4 F Acetaminophen (Tylenol 325mg Tab) 650 mg PO Q4 PRN PRN Reason: Pain, Mild (1-3) Atorvastatin Calcium (Lipitor) 40 mg PO HS [facility] Last Admin: 07/27/17 21:12 Dose: 40 mg Bisacodyl (Dulcolax) 10 mg RC DAILY PRN PRN Reason: Constipation Gabapentin (Neurontin) 100 mg PO TID [facility] Last Admin: 07/27/17 17:48 Dose: 100 mg Home Med (Ranolazine [Ranexa]) 500 mg PO BID [facility] Home Med (Ropinirole [Requip]) 1 mg PO TID [facility] Hydrochlorothiazide (Hydrodiuril) 25 mg PO DAILY [facility] Last Admin: 07/27/17 08:47 Dose: 25 mg Piperacillin Sod/Tazobactam (Sod 3.375 gm/ Sodium Chloride) 100 mls @ 100 mls/ hr IVPB 0500,1100,1700,2200 [facility] Last Admin: 07/27/17 21:07 Dose: 100 mls/hr Insulin Human Regular (Humulin R) 0 units SC ACCU-CHECK [facility] PRN Reason: Protocol Last Admin: 07/27/17 16:40 Dose: Not Given Lactobacillus Acidophilus (Bacid Acidophilus) 1 cap PO BID [facility] Last Admin: 07/27/17 16:42 Dose: 1 cap Losartan Potassium (Cozaar) 50 mg PO DAILY [facility] Last Admin: 07/27/17 08:47 Dose: 50 mg Magnesium Hydroxide (Milk Of Magnesia) 30 ml PO HS PRN PRN Reason: Constipation Metoprolol Tartrate (Lopressor) 50 mg PO Q12 [facility] Last Admin: 07/27/17 21:12 Dose: 50 mg Morphine Sulfate (Morphine) 2 mg IVP Q4 PRN PRN Reason: Pain, severe (8-10) Multivitamins/Minerals (Therapeutic-M Tab) 1 tab PO DAILY [facility] Last Admin: 07/27/17 08:47 Dose: 1 tab Nitroglycerin (Nitrostat Sl Tab) 0.4 mg SL Q5MIN PRN PRN Reason: chest pain Oxybutynin Chloride (Ditropan Tab) 5 mg PO DAILY [facility] Last Admin: 07/27/17 08:48 Dose: 5 mg Sitagliptin Phosphate (Januvia) 100 mg PO DAILY [facility] Last Admin: 07/27/17 08:48 Dose: 100 mg - Labs Labs: 07/25/17 05:38 07/25/17 05:38 PT 12.4 Seconds (9.8-13.1) 07/23/17 17:55 INR 1.2 (0.9-1.2) 07/23/17 17:55 APTT 42.9 Seconds (25.6-37.1) H D 07/25/17 10:50 - Constitutional Appears: No Acute Distress, Chronically Ill - Head Exam Head Exam: NORMAL INSPECTION - Eye Exam Eye Exam: PERRL - ENT Exam ENT Exam: Normal Exam - Neck Exam Neck Exam: Normal Inspection - Respiratory Exam Respiratory Exam: NORMAL BREATHING PATTERN - Cardiovascular Exam Cardiovascular Exam: REGULAR RHYTHM - GI/Abdominal Exam GI & Abdominal Exam: Soft, Normal Bowel Sounds - Extremities Exam Extremities Exam: Tenderness (L foot, l great toe) Additional comments: Pedal pulse present + 2 b/l. warm to cold proximal to distal. Amputation of 4th and 5th toe. 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
[2017-07-28] MEDS: Piperacillin/Tazobact 3.375 GM in Sodium Chloride 0.9% 100 ML IVPB SCH ×3 (04:12→17:58)
[2017-07-28] MEDS: Insulin Regular 100 units/ml SC SCH ×4 (06:43→23:05)
[2017-07-28] MEDS: Lactobacillus Acidophilus 500 MU Cap PO SCH ×2 (09:00→18:04)
[2017-07-28] MEDS: Multivitamin With Minerals Tab PO SCH (17:57)
--- NOTE | 2017-07-28 19:55 | CP.PCM.PN ---
Subjective - Date & Time of Evaluation Date of Evaluation: 07/28/17 Time of Evaluation: 16:00 - Subjective Subjective: peripheral angiogram performed. drug coted ballon angioplasty of L SFA (90%) and angioplasty L tibioperoneal trunk (95%). Plan: antiplatelet tehrapy with ASA Plavix. Objective - Vital Signs/Intake and Output Vital Signs (last 24 hours): Temp Pulse Resp BP Pulse Ox 98.9 F 104 H 18 117/69 97 07/28/17 16:07 07/28/17 16:07 07/28/17 16:07 07/28/17 17:57 07/28/17 16:07 - Medications Medications: Current Medications Acetaminophen (Tylenol 325mg Tab) 650 mg PO Q4 PRN PRN Reason: Fever >100.4 F Acetaminophen (Tylenol 325mg Tab) 650 mg PO Q4 PRN PRN Reason: Pain, Mild (1-3) Atorvastatin Calcium (Lipitor) 40 mg PO HS [facility] Last Admin: 07/27/17 21:12 Dose: 40 mg Bisacodyl (Dulcolax) 10 mg RC DAILY PRN PRN Reason: Constipation Gabapentin (Neurontin) 100 mg PO TID [facility] Last Admin: 07/28/17 17:58 Dose: 100 mg Home Med (Ranolazine [Ranexa]) 500 mg PO BID [facility] Home Med (Ropinirole [Requip]) 1 mg PO TID [facility] Hydrochlorothiazide (Hydrodiuril) 25 mg PO DAILY [facility] Last Admin: 07/28/17 18:04 Dose: 25 mg Insulin Human Regular (Humulin R) 0 units SC ACCU-CHECK [facility] PRN Reason: Protocol Last Admin: 07/28/17 17:00 Dose: Not Given Lactobacillus Acidophilus (Bacid Acidophilus) 1 cap PO BID [facility] Last Admin: 07/28/17 18:04 Dose: 1 cap Losartan Potassium (Cozaar) 50 mg PO DAILY [facility] Last Admin: 07/28/17 17:57 Dose: 50 mg Magnesium Hydroxide (Milk Of Magnesia) 30 ml PO HS PRN PRN Reason: Constipation Metoprolol Tartrate (Lopressor) 50 mg PO Q12 [facility] Last Admin: 07/27/17 21:12 Dose: 50 mg Multivitamins/Minerals (Therapeutic-M Tab) 1 tab PO DAILY [facility] Last Admin: 07/28/17 17:57 Dose: 1 tab Nitroglycerin (Nitrostat Sl Tab) 0.4 mg SL Q5MIN PRN PRN Reason: chest pain Oxybutynin Chloride (Ditropan Tab) 5 mg PO DAILY [facility] Last Admin: 07/28/17 17:57 Dose: 5 mg Sitagliptin Phosphate (Januvia) 100 mg PO DAILY [facility] Last Admin: 07/27/17 08:48 Dose: 100 mg - Labs Labs: 07/25/17 05:38 07/25/17 05:38 PT 12.4 Seconds (9.8-13.1) 07/23/17 17:55 INR 1.2 (0.9-1.2) 07/23/17 17:55 APTT 42.9 Seconds (25.6-37.1) H D 07/25/17 10:50 Assessment and Plan (1) Peripheral arterial disease Status: Deleted (2) CAD (coronary artery disease) Status: Acute (3) Diabetes mellitus Status: Chronic (4) Hypertension Status: Chronic
[2017-07-29] MEDS: Insulin Regular 100 units/ml SC SCH ×4 (07:18→22:32)
[2017-07-29] MEDS: Multivitamin With Minerals Tab PO SCH (10:03)
[2017-07-29] MEDS: Lactobacillus Acidophilus 500 MU Cap PO SCH ×2 (10:17→16:33)
--- NOTE | 2017-07-29 11:34 | CP.PCM.PN ---
Subjective - Date & Time of Evaluation Date of Evaluation: 07/29/17 Time of Evaluation: 09:00 - Subjective Subjective: + OM rx in progress discussed on rounds for GENE Objective - Vital Signs/Intake and Output Vital Signs (last 24 hours): Temp Pulse Resp BP Pulse Ox 98.1 F 80 20 104/61 96 07/29/17 07:41 07/29/17 11:13 07/29/17 07:41 07/29/17 11:13 07/29/17 07:41 - Medications Medications: Current Medications Acetaminophen (Tylenol 325mg Tab) 650 mg PO Q4 PRN PRN Reason: Fever >100.4 F Acetaminophen (Tylenol 325mg Tab) 650 mg PO Q4 PRN PRN Reason: Pain, Mild (1-3) Atorvastatin Calcium (Lipitor) 40 mg PO HS [facility] Last Admin: 07/28/17 23:08 Dose: 40 mg Bisacodyl (Dulcolax) 10 mg RC DAILY PRN PRN Reason: Constipation Gabapentin (Neurontin) 100 mg PO TID [facility] Last Admin: 07/29/17 10:02 Dose: 100 mg Home Med (Ranolazine [Ranexa]) 500 mg PO BID [facility] Home Med (Ropinirole [Requip]) 1 mg PO TID [facility] Hydrochlorothiazide (Hydrodiuril) 25 mg PO DAILY [facility] Last Admin: 07/29/17 10:03 Dose: 25 mg Insulin Human Regular (Humulin R) 0 units SC ACCU-CHECK [facility] PRN Reason: Protocol Last Admin: 07/29/17 07:18 Dose: Not Given Lactobacillus Acidophilus (Bacid Acidophilus) 1 cap PO BID [facility] Last Admin: 07/29/17 10:17 Dose: 1 cap Losartan Potassium (Cozaar) 50 mg PO DAILY [facility] Last Admin: 07/29/17 10:02 Dose: 50 mg Magnesium Hydroxide (Milk Of Magnesia) 30 ml PO HS PRN PRN Reason: Constipation Metoprolol Tartrate (Lopressor) 50 mg PO Q12 [facility] Last Admin: 07/29/17 11:13 Dose: 50 mg Multivitamins/Minerals (Therapeutic-M Tab) 1 tab PO DAILY [facility] Last Admin: 07/29/17 10:03 Dose: 1 tab Nitroglycerin (Nitrostat Sl Tab) 0.4 mg SL Q5MIN PRN PRN Reason: chest pain Oxybutynin Chloride (Ditropan Tab) 5 mg PO DAILY [facility] Last Admin: 07/29/17 10:02 Dose: 5 mg Sitagliptin Phosphate (Januvia) 100 mg PO DAILY [facility] Last Admin: 07/29/17 10:03 Dose: 100 mg - Labs Labs: 07/25/17 05:38 07/25/17 05:38 PT 12.4 Seconds (9.8-13.1) 07/23/17 17:55 INR 1.2 (0.9-1.2) 07/23/17 17:55 APTT 42.9 Seconds (25.6-37.1) H D 07/25/17 10:50 - Constitutional Appears: Non-toxic, Chronically Ill - Head Exam Head Exam: NORMOCEPHALIC - Eye Exam Eye Exam: PERRL - ENT Exam ENT Exam: Mucous Membranes Dry, Normal External Ear Exam - Neck Exam Neck Exam: absent: Lymphadenopathy - Respiratory Exam Respiratory Exam: Decreased Breath Sounds - Cardiovascular Exam Cardiovascular Exam: REGULAR RHYTHM - GI/Abdominal Exam GI & Abdominal Exam: Distended, Soft Assessment and Plan (1) Cellulitis Status: Acute (2) Cellulitis of left lower extremity Status: Acute (3) PVD (peripheral vascular disease) Status: Acute (4) Hx of heart artery stent Status: Chronic (5) CAD (coronary artery disease) Status: Acute (6) Cellulitis of foot Status: Acute (7) Ischemia of foot Status: Acute (8) Leg pain Status: Acute (9) Neuropathy Status: Acute
[2017-07-29 12:35] LABS: HEMATOCRIT 37.9 % (35.0-51.0); MEAN CELL VOLUME 84.9 fl (80.0-94.0); MEAN CORPUSCULAR HEMOGLOBIN 27.4 pg (27.0-31.0); MEAN CORPUSCULAR HGB CONC 32.3 g/dL (33.0-37.0); WHITE BLOOD COUNT 8.2 K/uL (4.8-10.8)
[2017-07-29 12:42] LABS: ALB/GLOB RATIO 1.2 (1.0-2.1); ALKALINE PHOSPHATASE 83 U/L (38-126); ALT/SGPT 32 U/L (21-72); AST/SGOT 25 U/L (17-59); BILIRUBIN,TOTAL 0.4 mg/dl (0.2-1.3); BLOOD UREA NITROGEN 13 mg/dl (9-20); CALCIUM 9.4 mg/dL (8.4-10.2); CARBON DIOXIDE 25 mmol/L (22-30); CHLORIDE 103 mmol/L (98-107); GFR AFRICAN-AMERICAN > 60; GLUCOSE,RANDOM 200 mg/dL (75-110); POTASSIUM 4.3 MMOL/L (3.6-5.0); SODIUM 138 mmol/l (132-148)
[2017-07-29] MEDS: Meropenem 1 GM in Sodium Chloride 0.9% 100 ML IVPB SCH ×3 (13:39→14:49)
[2017-07-29] MEDS ORDERED: Lidocaine 1% Inj (20ml) ONE (13:53)
--- NOTE | 2017-07-29 14:23 | PCM.SURG1 ---
Surgeon's Initial Post Op Note - Surgeon's Notes Surgeon: Matthew Dunaway MD Clinical Rn Manager: None Type of Anesthesia: Local Pre-Operative Diagnosis: Infection Operative Findings: Patent right basilic vein Post-Operative Diagnosis: Infection Operation Performed: SIngle lumen picc placement right basilic vein, 32 cm. Tip is in the SVC. Specimen/Specimens Removed: None Estimated Blood Loss: EBL {In ML}: 2 Blood Products Given: N/A Drains Used: No Drains Post-Op Condition: Fair Date of Surgery/Procedure: 07/29/17 Time of Surgery/Procedure: 14:20
--- NOTE | 2017-07-29 16:22 | CP.PCM.PN ---
Subjective - Date & Time of Evaluation Date of Evaluation: 07/29/17 Time of Evaluation: 09:30 - Subjective Subjective: F/U LLE Cellulite. Pt with no c/o of pain in the LLE, s/p angioplasty L SFA and L tibioperoneal trunk. Objective - Vital Signs/Intake and Output Vital Signs (last 24 hours): Temp Pulse Resp BP Pulse Ox 97.9 F 68 20 129/70 99 07/29/17 16:09 07/29/17 16:09 07/29/17 16:09 07/29/17 16:09 07/29/17 16:09 - Medications Medications: Current Medications Acetaminophen (Tylenol 325mg Tab) 650 mg PO Q4 PRN PRN Reason: Fever >100.4 F Acetaminophen (Tylenol 325mg Tab) 650 mg PO Q4 PRN PRN Reason: Pain, Mild (1-3) Atorvastatin Calcium (Lipitor) 40 mg PO HS [facility] Last Admin: 07/28/17 23:08 Dose: 40 mg Bisacodyl (Dulcolax) 10 mg RC DAILY PRN PRN Reason: Constipation Clopidogrel Bisulfate (Plavix) 75 mg PO DAILY [facility] Gabapentin (Neurontin) 100 mg PO TID [facility] Last Admin: 07/29/17 13:41 Dose: 100 mg Hydrochlorothiazide (Hydrodiuril) 25 mg PO DAILY [facility] Last Admin: 07/29/17 10:03 Dose: 25 mg Meropenem 1 gm/ Sodium (Chloride) 100 mls @ 100 mls/hr IVPB DAILY [facility] Last Admin: 07/29/17 14:49 Dose: 100 mls/hr Vancomycin HCl 1 gm/ Sodium (Chloride) 250 mls @ 166.667 mls/hr IVPB DAILY [facility] Last Admin: 07/29/17 16:04 Dose: 166.667 mls/hr Insulin Human Regular (Humulin R) 0 units SC ACCU-CHECK [facility] PRN Reason: Protocol Last Admin: 07/29/17 13:40 Dose: 3 units Lactobacillus Acidophilus (Bacid Acidophilus) 1 cap PO BID [facility] Last Admin: 07/29/17 10:17 Dose: 1 cap Losartan Potassium (Cozaar) 50 mg PO DAILY [facility] Last Admin: 07/29/17 10:02 Dose: 50 mg Magnesium Hydroxide (Milk Of Magnesia) 30 ml PO HS PRN PRN Reason: Constipation Metoprolol Tartrate (Lopressor) 50 mg PO Q12 [facility] Last Admin: 07/29/17 11:13 Dose: 50 mg Multivitamins/Minerals (Therapeutic-M Tab) 1 tab PO DAILY [facility] Last Admin: 07/29/17 10:03 Dose: 1 tab Nitroglycerin (Nitrostat Sl Tab) 0.4 mg SL Q5MIN PRN PRN Reason: chest pain Oxybutynin Chloride (Ditropan Tab) 5 mg PO DAILY [facility] Last Admin: 07/29/17 10:02 Dose: 5 mg Sitagliptin Phosphate (Januvia) 100 mg PO DAILY [facility] Last Admin: 07/29/17 10:03 Dose: 100 mg - Labs Labs: 07/29/17 11:50 07/29/17 11:50 PT 12.4 Seconds (9.8-13.1) 07/23/17 17:55 INR 1.2 (0.9-1.2) 07/23/17 17:55 APTT 42.9 Seconds (25.6-37.1) H D 07/25/17 10:50 - Constitutional Appears: No Acute Distress - Head Exam Head Exam: NORMAL INSPECTION - Eye Exam Eye Exam: PERRL - ENT Exam ENT Exam: Normal Exam - Neck Exam Neck Exam: Normal Inspection - Respiratory Exam Respiratory Exam: NORMAL BREATHING PATTERN - Cardiovascular Exam Cardiovascular Exam: REGULAR RHYTHM - GI/Abdominal Exam GI & Abdominal Exam: Soft, Normal Bowel Sounds - Extremities Exam Additional comments: LLE warm, before was cold. mild erythema LLE. 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
--- NOTE | 2017-07-29 17:19 | CP.PCM.PN ---
Subjective - Date & Time of Evaluation Date of Evaluation: 07/29/17 Time of Evaluation: 10:00 - Subjective Subjective: patient feels well after endovascular intervention. Objective - Vital Signs/Intake and Output Vital Signs (last 24 hours): Temp Pulse Resp BP Pulse Ox 97.9 F 68 20 129/70 99 07/29/17 16:09 07/29/17 16:09 07/29/17 16:09 07/29/17 16:09 07/29/17 16:09 - Medications Medications: Current Medications Acetaminophen (Tylenol 325mg Tab) 650 mg PO Q4 PRN PRN Reason: Fever >100.4 F Acetaminophen (Tylenol 325mg Tab) 650 mg PO Q4 PRN PRN Reason: Pain, Mild (1-3) Atorvastatin Calcium (Lipitor) 40 mg PO HS [facility] Last Admin: 07/28/17 23:08 Dose: 40 mg Bisacodyl (Dulcolax) 10 mg RC DAILY PRN PRN Reason: Constipation Clopidogrel Bisulfate (Plavix) 75 mg PO DAILY [facility] Gabapentin (Neurontin) 100 mg PO TID [facility] Last Admin: 07/29/17 16:33 Dose: 100 mg Hydrochlorothiazide (Hydrodiuril) 25 mg PO DAILY [facility] Last Admin: 07/29/17 10:03 Dose: 25 mg Meropenem 1 gm/ Sodium (Chloride) 100 mls @ 100 mls/hr IVPB DAILY [facility] Last Admin: 07/29/17 14:49 Dose: 100 mls/hr Vancomycin HCl 1 gm/ Sodium (Chloride) 250 mls @ 166.667 mls/hr IVPB DAILY [facility] Last Admin: 07/29/17 16:04 Dose: 166.667 mls/hr Insulin Human Regular (Humulin R) 0 units SC ACCU-CHECK [facility] PRN Reason: Protocol Last Admin: 07/29/17 13:40 Dose: 3 units Lactobacillus Acidophilus (Bacid Acidophilus) 1 cap PO BID [facility] Last Admin: 07/29/17 16:33 Dose: 1 cap Losartan Potassium (Cozaar) 50 mg PO DAILY [facility] Last Admin: 07/29/17 10:02 Dose: 50 mg Magnesium Hydroxide (Milk Of Magnesia) 30 ml PO HS PRN PRN Reason: Constipation Metoprolol Tartrate (Lopressor) 50 mg PO Q12 [facility] Last Admin: 07/29/17 11:13 Dose: 50 mg Multivitamins/Minerals (Therapeutic-M Tab) 1 tab PO DAILY [facility] Last Admin: 07/29/17 10:03 Dose: 1 tab Nitroglycerin (Nitrostat Sl Tab) 0.4 mg SL Q5MIN PRN PRN Reason: chest pain Oxybutynin Chloride (Ditropan Tab) 5 mg PO DAILY [facility] Last Admin: 07/29/17 10:02 Dose: 5 mg Sitagliptin Phosphate (Januvia) 100 mg PO DAILY [facility] Last Admin: 07/29/17 10:03 Dose: 100 mg - Labs Labs: 07/29/17 11:50 07/29/17 11:50 PT 12.4 Seconds (9.8-13.1) 07/23/17 17:55 INR 1.2 (0.9-1.2) 07/23/17 17:55 APTT 42.9 Seconds (25.6-37.1) H D 07/25/17 10:50 - Constitutional Appears: Non-toxic - Head Exam Head Exam: NORMAL INSPECTION - Eye Exam Eye Exam: Normal appearance - ENT Exam ENT Exam: Mucous Membranes Moist - Neck Exam Neck Exam: Full ROM - Respiratory Exam Respiratory Exam: NORMAL BREATHING PATTERN - Cardiovascular Exam Cardiovascular Exam: REGULAR RHYTHM - GI/Abdominal Exam GI & Abdominal Exam: Normal Bowel Sounds - Rectal Exam Rectal Exam: Deferred - Extremities Exam Extremities Exam: absent: Pedal Edema - Back Exam Back Exam: NORMAL INSPECTION - Neurological Exam Neurological Exam: Alert - Psychiatric Exam Psychiatric exam: Normal Affect - Skin Skin Exam: Normal Color Assessment and Plan (1) Peripheral arterial disease Assessment & Plan: s/p drug coated angioplasty L SFA, and TALENT MANAGEMENT SPECIALIST tibioperoneal trunk. continue ASA/ Plavix. Status: Deleted (2) CAD (coronary artery disease) Status: Acute (3) Diabetes mellitus Assessment & Plan: blood sugar control Status: Chronic (4) Hypertension Status: Chronic
--- NOTE | 2017-07-29 17:35 | CARD ---
APPROVED REPORT EXAM: Two-dimensional and M-mode echocardiogram with Doppler and color Doppler. Other Information Quality : FairRhythm : NSR Technically limited study due to Poor Echo Window INDICATION Congestive Heart Failure Surgery/Intervention CABD DIMENSIONS IVSd1.09 (0.7-1.1cm)LVDd4.03 (3.9-5.9cm) LVOT Diameter2.16 (1.8-2.4cm)PWd1.09 (0.7-1.1cm) IVSs1.23 (0.8-1.2cm)LVDs2.96 (2.5-4.0cm) FS (%) 26.5 %PWs1.15 (0.8-1.2cm) LVEF (%)55.0 (>50%) Mitral Valve MV E Axfprcqm63.0cm/sMV DECEL [id number] A Ovjpbujm12.8cm/s MV QPP748onL/A ratio0.7MVA (PHT)1.34cm2 TDI Lateral E' Peak V5.79cm/sMedial E' Peak V4.81cm/sE/Lateral E'5.4 E/Medial E'6.4 LEFT VENTRICLE The left ventricle is normal size. There is mild concentric left ventricular hypertrophy. The left ventricular function is normal. The left ventricular ejection fraction is within the normal range. There is normal LV segmental wall motion. Transmitral Doppler flow pattern is Grade I-abnormal relaxation pattern. RIGHT VENTRICLE The right ventricle is normal size. There is normal right ventricular wall thickness. The right ventricular systolic function is normal. ATRIA The left atrium size is normal. The right atrium size is normal. AORTIC VALVE The aortic valve is not well visualized. No aortic regurgitation is present. There is no aortic valvular stenosis. MITRAL VALVE The mitral valve is not well visualized. There is no mitral valve stenosis. Mitral regurgitation is trace. TRICUSPID VALVE The tricuspid valve is normal in structure and function. There is no tricuspid valve regurgitation noted. PULMONIC VALVE The pulmonary valve is normal in structure and function. There is no pulmonic valvular regurgitation. GREAT VESSELS The aortic root is normal in size. The IVC was not visualized. PERICARDIAL EFFUSION There is a trace circumferential pericardial effusion. <Conclusion> Poor Echo window. The left ventricle is normal size. There is mild concentric left ventricular hypertrophy. The left ventricular function is normal. The left ventricular ejection fraction is within the normal range. There is normal LV segmental wall motion. Transmitral Doppler flow pattern is Grade I-abnormal relaxation pattern.
[2017-07-30 07:37] VITALS: BP 101/62; PULSE 78; RESP 20; TEMP 98; O2SAT 99
[2017-07-30] MEDS: Meropenem 1 GM in Sodium Chloride 0.9% 100 ML IVPB SCH (08:37)
[2017-07-30] MEDS: Multivitamin With Minerals Tab PO SCH (08:39)
[2017-07-30] MEDS: Insulin Regular 100 units/ml SC SCH ×2 (08:41→11:13)
[2017-07-30] MEDS: Lactobacillus Acidophilus 500 MU Cap PO SCH (08:45)
--- NOTE | 2017-07-30 11:18 | CP.PCM.PCO ---
Physician Communication Note - Physician Communication Note Physician Communication Note: Per Dr. Martinez, IV Azalea & Arcadio x 6 weeks
--- NOTE | 2017-07-30 11:23 | CP.PCM.PN ---
Subjective - Date & Time of Evaluation Date of Evaluation: 07/30/17 Time of Evaluation: 09:21 - Subjective Subjective: Podiatry note for Dr. Chen 87 y/o male seen at bedside for left great toe and left lower extremity pain. Patient is in NAD and is AAOx3. Patient states that he still has little pain in his LLE but it has gone down a lot since he came to the ED. Patient states that he has felt well since his endovascular procedure two days ago. Patient denies of any acute overnight events. Patient denies of any other pedal complains at this time. Patient denies of any F/N/V/C/SOB at this time. Objective - Vital Signs/Intake and Output Vital Signs (last 24 hours): Temp Pulse Resp BP Pulse Ox 98.0 F 78 20 101/62 99 07/30/17 07:37 07/30/17 08:40 07/30/17 07:37 07/30/17 07:37 07/30/17 07:37 - Medications Medications: Current Medications Acetaminophen (Tylenol 325mg Tab) 650 mg PO Q4 PRN PRN Reason: Fever >100.4 F Acetaminophen (Tylenol 325mg Tab) 650 mg PO Q4 PRN PRN Reason: Pain, Mild (1-3) Atorvastatin Calcium (Lipitor) 40 mg PO HS [facility] Last Admin: 07/29/17 21:57 Dose: 40 mg Bisacodyl (Dulcolax) 10 mg RC DAILY PRN PRN Reason: Constipation Clopidogrel Bisulfate (Plavix) 75 mg PO DAILY [facility] Last Admin: 07/30/17 08:39 Dose: 75 mg Gabapentin (Neurontin) 100 mg PO TID [facility] Last Admin: 07/30/17 08:40 Dose: 100 mg Hydrochlorothiazide (Hydrodiuril) 25 mg PO DAILY [facility] Last Admin: 07/30/17 08:40 Dose: 25 mg Meropenem 1 gm/ Sodium (Chloride) 100 mls @ 100 mls/hr IVPB DAILY [facility] Last Admin: 07/30/17 08:37 Dose: 100 mls/hr Vancomycin HCl 1 gm/ Sodium (Chloride) 250 mls @ 166.667 mls/hr IVPB DAILY [facility] Last Admin: 07/30/17 11:12 Dose: 166.667 mls/hr Insulin Human Regular (Humulin R) 0 units SC ACCU-CHECK [facility] PRN Reason: Protocol Last Admin: 07/30/17 11:13 Dose: 2 units Lactobacillus Acidophilus (Bacid Acidophilus) 1 cap PO BID [facility] Last Admin: 07/30/17 08:45 Dose: 1 cap Losartan Potassium (Cozaar) 50 mg PO DAILY [facility] Last Admin: 07/30/17 08:40 Dose: 50 mg Magnesium Hydroxide (Milk Of Magnesia) 30 ml PO HS PRN PRN Reason: Constipation Metoprolol Tartrate (Lopressor) 50 mg PO Q12 [facility] Last Admin: 07/30/17 08:40 Dose: 50 mg Multivitamins/Minerals (Therapeutic-M Tab) 1 tab PO DAILY [facility] Last Admin: 07/30/17 08:39 Dose: 1 tab Nitroglycerin (Nitrostat Sl Tab) 0.4 mg SL Q5MIN PRN PRN Reason: chest pain Oxybutynin Chloride (Ditropan Tab) 5 mg PO DAILY [facility] Last Admin: 07/30/17 08:40 Dose: 5 mg Sitagliptin Phosphate (Januvia) 100 mg PO DAILY [facility] Last Admin: 07/30/17 08:39 Dose: 100 mg - Labs Labs: 07/29/17 11:50 07/29/17 11:50 PT 12.4 Seconds (9.8-13.1) 07/23/17 17:55 INR 1.2 (0.9-1.2) 07/23/17 17:55 APTT 42.9 Seconds (25.6-37.1) H D 07/25/17 10:50 - Constitutional Appears: Well, Non-toxic, No Acute Distress - Extremities Exam Additional comments: Bilateral Lower Extremity Exam: VASC: DP/PT pulses are palpable 1/4 bilaterally, SMALL PARTS ASSEMBLER: < 3 sec b/l, TG: warm to cool from proximal to distal, no pitting or non-pitting edema noted DERM: left lower extremity distally at the foot and hallux appears to have mild erythema, left hallucal nail appears to be mildly detached from the nail bed distally, nails on the hallux appears to be dystrophic, discolored, and hyperkeratotic in nature, no open lesions, no interdigital macerations, no clinical suspicion of active infection noted at this time NEURO: protective and motor sensation grossly intact ORTHO: mild pain on palpation of the medial and lateral border of the left hallucal nail bed, Amputation of the 4th and 5th digit noted on the left foot, no pain on palpation/squeeze of the calf bilaterally - Neurological Exam Neurological Exam: Alert, Awake, Oriented x3 - Psychiatric Exam Psychiatric exam: Normal Affect, Normal Mood Assessment and Plan - Assessment and Plan (Free Text) Assessment: 87 y/o male seen at bedside for redness, swelling and pain in his left lower extremity secondary to 1). PVD 2). Cellulitis Plan: Patient seen and evaluated at bedside with attending Dr. Chen Charts, labs and vitals reviewed No dressing applied at this time No surgical intervention planned at this time Continue IV abx as per ID Podiatry will continue to follow while patient remains in house
--- NOTE | 2017-07-30 12:37 | CP.PCM.PN ---
Subjective - Date & Time of Evaluation Date of Evaluation: 07/30/17 Time of Evaluation: 07:00 - Subjective Subjective: has OM left foot ant amp site by MRI IV antibiotics ordered empirically will need close podiatry follow up and vanco levels Objective - Vital Signs/Intake and Output Vital Signs (last 24 hours): Temp Pulse Resp BP Pulse Ox 98.0 F 78 20 101/62 99 07/30/17 07:37 07/30/17 08:40 07/30/17 07:37 07/30/17 07:37 07/30/17 07:37 - Medications Medications: Current Medications Acetaminophen (Tylenol 325mg Tab) 650 mg PO Q4 PRN PRN Reason: Fever >100.4 F Acetaminophen (Tylenol 325mg Tab) 650 mg PO Q4 PRN PRN Reason: Pain, Mild (1-3) Atorvastatin Calcium (Lipitor) 40 mg PO HS [facility] Last Admin: 07/29/17 21:57 Dose: 40 mg Bisacodyl (Dulcolax) 10 mg RC DAILY PRN PRN Reason: Constipation Clopidogrel Bisulfate (Plavix) 75 mg PO DAILY [facility] Last Admin: 07/30/17 08:39 Dose: 75 mg Gabapentin (Neurontin) 100 mg PO TID [facility] Last Admin: 07/30/17 08:40 Dose: 100 mg Hydrochlorothiazide (Hydrodiuril) 25 mg PO DAILY [facility] Last Admin: 07/30/17 08:40 Dose: 25 mg Meropenem 1 gm/ Sodium (Chloride) 100 mls @ 100 mls/hr IVPB DAILY [facility] Last Admin: 07/30/17 08:37 Dose: 100 mls/hr Vancomycin HCl 1 gm/ Sodium (Chloride) 250 mls @ 166.667 mls/hr IVPB DAILY [facility] Last Admin: 07/30/17 11:12 Dose: 166.667 mls/hr Insulin Human Regular (Humulin R) 0 units SC ACCU-CHECK [facility] PRN Reason: Protocol Last Admin: 07/30/17 11:13 Dose: 2 units Lactobacillus Acidophilus (Bacid Acidophilus) 1 cap PO BID [facility] Last Admin: 07/30/17 08:45 Dose: 1 cap Losartan Potassium (Cozaar) 50 mg PO DAILY [facility] Last Admin: 07/30/17 08:40 Dose: 50 mg Magnesium Hydroxide (Milk Of Magnesia) 30 ml PO HS PRN PRN Reason: Constipation Metoprolol Tartrate (Lopressor) 50 mg PO Q12 [facility] Last Admin: 07/30/17 08:40 Dose: 50 mg Multivitamins/Minerals (Therapeutic-M Tab) 1 tab PO DAILY [facility] Last Admin: 07/30/17 08:39 Dose: 1 tab Nitroglycerin (Nitrostat Sl Tab) 0.4 mg SL Q5MIN PRN PRN Reason: chest pain Oxybutynin Chloride (Ditropan Tab) 5 mg PO DAILY [facility] Last Admin: 07/30/17 08:40 Dose: 5 mg Sitagliptin Phosphate (Januvia) 100 mg PO DAILY [facility] Last Admin: 07/30/17 08:39 Dose: 100 mg - Labs Labs: 07/29/17 11:50 07/29/17 11:50 PT 12.4 Seconds (9.8-13.1) 07/23/17 17:55 INR 1.2 (0.9-1.2) 07/23/17 17:55 APTT 42.9 Seconds (25.6-37.1) H D 07/25/17 10:50 - Constitutional Appears: Non-toxic, Cachectic - Head Exam Head Exam: NORMOCEPHALIC - Eye Exam Pupil Exam: NORMAL ACCOMODATION - ENT Exam ENT Exam: Mucous Membranes Dry - Neck Exam Neck Exam: absent: Lymphadenopathy - Respiratory Exam Respiratory Exam: Decreased Breath Sounds - Cardiovascular Exam Cardiovascular Exam: REGULAR RHYTHM - GI/Abdominal Exam GI & Abdominal Exam: Distended Assessment and Plan (1) Cellulitis Status: Acute (2) Cellulitis of left lower extremity Status: Acute (3) PVD (peripheral vascular disease) Status: Acute (4) Hx of heart artery stent Status: Chronic (5) CAD (coronary artery disease) Status: Acute (6) Cellulitis of foot Status: Acute (7) Ischemia of foot Status: Acute (8) Leg pain Status: Acute (9) Neuropathy Status: Acute
--- NOTE | 2017-07-30 15:53 | CP.PCM.PN ---
Subjective - Date & Time of Evaluation Date of Evaluation: 07/30/17 Time of Evaluation: 10:00 - Subjective Subjective: F/U LLE Cellulitis. Pt with no c/o of pain in L foot. Objective - Vital Signs/Intake and Output Vital Signs (last 24 hours): Temp Pulse Resp BP Pulse Ox 98.0 F 78 20 101/62 99 07/30/17 07:37 07/30/17 08:40 07/30/17 07:37 07/30/17 07:37 07/30/17 07:37 - Medications Medications: Current Medications Acetaminophen (Tylenol 325mg Tab) 650 mg PO Q4 PRN PRN Reason: Fever >100.4 F Acetaminophen (Tylenol 325mg Tab) 650 mg PO Q4 PRN PRN Reason: Pain, Mild (1-3) Atorvastatin Calcium (Lipitor) 40 mg PO HS [facility] Last Admin: 07/29/17 21:57 Dose: 40 mg Bisacodyl (Dulcolax) 10 mg RC DAILY PRN PRN Reason: Constipation Clopidogrel Bisulfate (Plavix) 75 mg PO DAILY [facility] Last Admin: 07/30/17 08:39 Dose: 75 mg Gabapentin (Neurontin) 100 mg PO TID [facility] Last Admin: 07/30/17 08:40 Dose: 100 mg Hydrochlorothiazide (Hydrodiuril) 25 mg PO DAILY [facility] Last Admin: 07/30/17 08:40 Dose: 25 mg Meropenem 1 gm/ Sodium (Chloride) 100 mls @ 100 mls/hr IVPB DAILY [facility] Last Admin: 07/30/17 08:37 Dose: 100 mls/hr Vancomycin HCl 1 gm/ Sodium (Chloride) 250 mls @ 166.667 mls/hr IVPB DAILY [facility] Last Admin: 07/30/17 11:12 Dose: 166.667 mls/hr Insulin Human Regular (Humulin R) 0 units SC ACCU-CHECK [facility] PRN Reason: Protocol Last Admin: 07/30/17 11:13 Dose: 2 units Lactobacillus Acidophilus (Bacid Acidophilus) 1 cap PO BID [facility] Last Admin: 07/30/17 08:45 Dose: 1 cap Losartan Potassium (Cozaar) 50 mg PO DAILY [facility] Last Admin: 07/30/17 08:40 Dose: 50 mg Magnesium Hydroxide (Milk Of Magnesia) 30 ml PO HS PRN PRN Reason: Constipation Metoprolol Tartrate (Lopressor) 50 mg PO Q12 [facility] Last Admin: 07/30/17 08:40 Dose: 50 mg Multivitamins/Minerals (Therapeutic-M Tab) 1 tab PO DAILY [facility] Last Admin: 07/30/17 08:39 Dose: 1 tab Nitroglycerin (Nitrostat Sl Tab) 0.4 mg SL Q5MIN PRN PRN Reason: chest pain Oxybutynin Chloride (Ditropan Tab) 5 mg PO DAILY [facility] Last Admin: 07/30/17 08:40 Dose: 5 mg Sitagliptin Phosphate (Januvia) 100 mg PO DAILY [facility] Last Admin: 07/30/17 08:39 Dose: 100 mg - Labs Labs: 07/29/17 11:50 07/29/17 11:50 PT 12.4 Seconds (9.8-13.1) 07/23/17 17:55 INR 1.2 (0.9-1.2) 07/23/17 17:55 APTT 42.9 Seconds (25.6-37.1) H D 07/25/17 10:50 - Constitutional Appears: No Acute Distress - Head Exam Head Exam: NORMAL INSPECTION - Eye Exam Eye Exam: PERRL - ENT Exam ENT Exam: Normal Oropharynx - Neck Exam Neck Exam: Normal Inspection - Respiratory Exam Respiratory Exam: NORMAL BREATHING PATTERN - Cardiovascular Exam Cardiovascular Exam: REGULAR RHYTHM - GI/Abdominal Exam GI & Abdominal Exam: Soft, Normal Bowel Sounds - Extremities Exam Additional comments: Redness and swelling LLE, warm to touch. 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 Pt improved and stable [facility] I will follow him in that facility.
--- NOTE | 2017-08-01 11:28 | VASCULAR ---
PROCEDURE: Date of procedure: 07/29/2017 Procedure: 1. Placement of a right arm PICC with ultrasound and fluoroscopic guidance, CPT 14500 2. PICC tip confirmation with spot radiograph and is in the superior vena cava Medications: 1 percent lidocaine Total Fluoro time: 4 seconds Radiation: 0.34 MGy EBL: 2 cc HISTORY: Infection requiring long-term IV antibiotics TECHNIQUE: Following informed consent and procedure time-out, the patient was placed supine on the interventional table and the right arm prepped and draped in the usual sterile fashion. Ultrasound showed a patent and compressible right basilic vein. After the skin was anesthetized with lidocaine, the basilic vein was accessed with micro micropuncture technique using ultrasound guidance. A guidewire was then advanced under fluoroscopic guidance into the superior vena cava. An image documenting ultrasound guidance for vascular access was permanently saved. The length of the single-lumen 4 Faroese PICC was trimmed to 32 centimeters and advanced through a peel-away sheath. The PICC was position with tip of PICC confirm a spot radiograph the superior vena cava. The PICC was secured to the patient's skin. The PICC was flushed. A biopatch and sterile dressing was applied. IMPRESSION: Placement of a single-lumen 4 Faroese PICC trimmed to 32 centimeters via right basilic vein. The tip of the PICC is confirmed with spot radiograph and is in the superior vena cava.
--- NOTE | 2017-08-14 12:52 | CP.PCM.DIS ---
Provider - Provider Date of Admission: 07/22/17 22:31 Attending physician: Kevyn Pereyra MD Consults: Cardiology, ID and Podiatry. 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 Hospital Course - Lab Results Lab Results: Micro Results 07/22/17 23:18 Blood Blood Culture - Final NO GROWTH AFTER 5 DAYS 07/22/17 23:18 Blood Gram Stain - Final TEST NOT PERFORMED 07/22/17 23:58 Blood Blood Culture - Final NO GROWTH AFTER 5 DAYS 07/22/17 23:58 Blood Gram Stain - Final TEST NOT PERFORMED Most Recent Lab Values WBC 8.2 K/uL (4.8-10.8) 07/29/17 11:50 RBC 4.46 Mil/uL (4.40-5.90) 07/29/17 11:50 Hgb 12.2 g/dL (12.0-18.0) 07/29/17 11:50 Hct 37.9 % (35.0-51.0) 07/29/17 11:50 MCV 84.9 fl (80.0-94.0) 07/29/17 11:50 MCH 27.4 pg (27.0-31.0) 07/29/17 11:50 MCHC 32.3 g/dL (33.0-37.0) L 07/29/17 11:50 RDW 17.0 % (11.5-14.5) H 07/29/17 11:50 Plt Count 273 K/uL (130-400) 07/29/17 11:50 MPV 7.8 fl (7.2-11.7) 07/22/17 20:35 Neut % (Auto) 78.8 % (50.0-75.0) H 07/22/17 20:35 Lymph % (Auto) 12.3 % (20.0-40.0) L 07/22/17 20:35 Whitley % (Auto) 7.4 % (0.0-10.0) 07/22/17 20:35 Eos % (Auto) 0.6 % (0.0-4.0) 07/22/17 20:35 Baso % (Auto) 0.9 % (0.0-2.0) 07/22/17 20:35 Neut # 9.9 K/uL (1.8-7.0) H 07/22/17 20:35 Lymph # 1.5 K/uL (1.0-4.3) 07/22/17 20:35 Whitley # 0.9 K/uL (0.0-0.8) H 07/22/17 20:35 Eos # 0.1 K/uL (0.0-0.7) 07/22/17 20:35 Baso # 0.1 K/uL (0.0-0.2) 07/22/17 20:35 ESR 26 mm/hr (0-20) H 07/30/17 07:55 PT 12.4 Seconds (9.8-13.1) 07/23/17 17:55 INR 1.2 (0.9-1.2) 07/23/17 17:55 APTT 42.9 Seconds (25.6-37.1) H D 07/25/17 10:50 pO2 36 mm/Hg (30-55) 07/22/17 23:10 VBG pH 7.43 (7.32-7.43) 07/22/17 23:10 VBG pCO2 41 mmHg (40-60) 07/22/17 23:10 VBG HCO3 26.2 mmol/L 07/22/17 23:10 VBG Total CO2 28.5 mmol/L (22-28) H 07/22/17 23:10 VBG O2 Sat (Calc) 77.7 % (40-65) H 07/22/17 23:10 VBG Base Excess 2.6 mmol/L (0.0-2.0) H 07/22/17 23:10 VBG Potassium 3.9 mmol/L (3.6-5.2) 07/22/17 23:10 Sodium 136.0 mmol/L (132-148) 07/22/17 23:10 Chloride 101.0 mmol/L (98-107) 07/22/17 23:10 Glucose 142 mg/dL (75-110) H 07/22/17 23:10 Lactate 1.4 mmol/L (0.7-2.1) 07/22/17 23:10 FiO2 21.0 % 07/22/17 23:10 Sodium 138 mmol/l (132-148) 07/29/17 11:50 Potassium 4.3 MMOL/L (3.6-5.0) 07/29/17 11:50 Chloride 103 mmol/L (98-107) 07/29/17 11:50 Carbon Dioxide 25 mmol/L (22-30) 07/29/17 11:50 Anion Gap 14 (10-20) 07/29/17 11:50 BUN 13 mg/dl (9-20) 07/29/17 11:50 Creatinine 1.0 mg/dL (0.8-1.5) 07/29/17 11:50 Est GFR ( Amer) > 60 07/29/17 11:50 Est GFR (Non-Af Amer) > 60 07/29/17 11:50 POC Glucose (mg/dL) 216 mg/dL (65-110) H 07/30/17 10:50 Random Glucose 200 mg/dL (75-110) H 07/29/17 11:50 Hemoglobin A1c 8.5 % (4.2-6.5) H D 07/23/17 09:00 Calcium 9.4 mg/dL (8.4-10.2) 07/29/17 11:50 Total Bilirubin 0.4 mg/dl (0.2-1.3) 07/29/17 11:50 AST 25 U/L (17-59) 07/29/17 11:50 ALT 32 U/L (21-72) 07/29/17 11:50 Alkaline Phosphatase 83 U/L (38-126) 07/29/17 11:50 C-React Prot High Sens 11.14 mg/L (1.00-3.00) H 07/29/17 11:50 Total Protein 7.0 G/DL (6.3-8.2) 07/29/17 11:50 Albumin 3.9 g/dL (3.5-5.0) 07/29/17 11:50 Globulin 3.1 gm/dL (2.2-3.9) 07/29/17 11:50 Albumin/Globulin Ratio 1.2 (1.0-2.1) 07/29/17 11:50 Triglycerides 59 mg/DL (0-149) 07/23/17 06:55 Cholesterol 148 mg/dL (0-199) 07/23/17 06:55 LDL Cholesterol Direct 83 mg/dL (0-129) 07/23/17 06:55 HDL Cholesterol 50 MG/DL (30-70) 07/23/17 06:55 Thyroxine (T4) 9.39 ug/dl (5.5-11.0) 07/23/17 06:55 TSH 3rd Generation 3.27 mIU/ML (0.46-4.68) 07/23/17 06:55 Venous Blood Potassium 3.9 mmol/L (3.6-5.2) 07/22/17 23:10 - Date & Time of H&P Date of H&P: 07/23/17 Time of H&P: 11:40 Discharge Exam - Head Exam Head Exam: NORMAL INSPECTION Discharge Plan - Discharge Medications Prescriptions: Meropenem [Merrem IV] 1 gm IVPB DAILY #42 vial Vancomycin 1 GM [Vancomycin 1GM in Normal Saline Addvantage] 1 gm IVPB DAILY # 42 bag - Follow Up Plan Condition: FAIR Disposition: TRANSF TO SNF Instructions: Cellulitis (DC), Osteomyelitis (DC), Ultrasound (GEN), Angiogram (GEN) Additional Instructions: Continue IV abx x 6 weeks
== END 2017-07-30 13:30 | DRG 629 ==
LOC: H.ER 18:03 → H.ERHOLD 22:31 → H.MEDSURG1 07-23 00:09
PROVIDERS: ADMIT Internal Medicine Pulmonary Disease; ATTEND Internal Medicine Pulmonary Disease
PROC: 047L3Z1 Dilation of Left Femoral Artery using Drug-Coated Balloon, Percutaneous Approach (ICD-10-PCS; principal; 2017-07-28)
PROC: 047N3ZZ Dilation of Left Popliteal Artery, Percutaneous Approach (ICD-10-PCS; 2017-07-28)
PROC: 047U3ZZ Dilation of Left Peroneal Artery, Percutaneous Approach (ICD-10-PCS; 2017-07-28)
PROC: 02HV33Z Insertion of Infusion Device into Superior Vena Cava, Percutaneous Approach (ICD-10-PCS; 2017-07-29)
DX: E11.69 Type 2 diabetes mellitus with other specified complication (principal); M86.9 Osteomyelitis, unspecified; I50.32 Chronic diastolic (congestive) heart failure; I11.0 Hypertensive heart disease with heart failure; E11.65 Type 2 diabetes mellitus with hyperglycemia; L03.116 Cellulitis of left lower limb; E78.00 Pure hypercholesterolemia, unspecified; E78.5 Hyperlipidemia, unspecified; I25.10 Atherosclerotic heart disease of native coronary artery without angina pectoris; Z95.1 Presence of aortocoronary bypass graft; Z95.5 Presence of coronary angioplasty implant and graft; G62.9 Polyneuropathy, unspecified; I70.202 Unspecified atherosclerosis of native arteries of extremities, left leg; M19.90 Unspecified osteoarthritis, unspecified site

== ENCOUNTER 2017-08-13 13:02 | Emergency (ER) | payer MEDICARE ==
[2017-08-13 13:03] VITALS: BMI 21.2
[2017-08-13 13:08] VITALS: BP 110/57; PULSE 68; RESP 16; TEMP 98.1; O2SAT 97
--- NOTE | 2017-08-13 14:10 | CP.PCM.CON ---
History of Present Illness - History of Present Illness History of Present Illness: Podiatry note for Dr. Chen 87 y/o male known to our service seen in ED for left great toe and diffuse foot pain. Patient is in NAD and is AAOx3. Patient states he is having pain in the left foot. Patient denies seeing any drainage or any open wounds. Patient states he was here a little over a week ago for the same problem. Patient has no other pedal complaints at this time. Patient denies F/N/V/C/SOB. Review of Systems - Review of Systems All systems: reviewed and no additional remarkable complaints except (per HPI) Past Patient History - Infectious Disease Hx of Infectious Diseases: None - Tetanus Immunizations Tetanus Immunization: Unknown - Past Medical History & Family History Past Medical History?: Yes - Past Social History Smoking Status: Never Smoked - CARDIAC Hx Cardiac Disorders: Yes Hx Congestive Heart Failure: Yes Hx Hypercholesterolemia: Yes Hx Hypertension: Yes Hx Pacemaker: No - PULMONARY Hx Respiratory Disorders: Yes - NEUROLOGICAL Hx Neurological Disorder: No - HEENT Hx HEENT Problems: No - RENAL Hx Chronic Kidney Disease: No - ENDOCRINE/METABOLIC Hx Endocrine Disorders: Yes - HEMATOLOGICAL/ONCOLOGICAL Hx Blood Disorders: No - INTEGUMENTARY Hx Dermatological Problems: No - MUSCULOSKELETAL/RHEUMATOLOGICAL Hx Arthritis: Yes Hx Falls: No Hx Unsteady Gait: Yes (ambulates with rolling walker) - GASTROINTESTINAL Hx Gastrointestinal Disorders: No Hx Gastroesophageal Reflux: Yes - GENITOURINARY/GYNECOLOGICAL Hx Genitourinary Disorders: Yes - PSYCHIATRIC Hx Psychophysiologic Disorder: No Hx Substance Use: No - SURGICAL HISTORY Hx Coronary Artery Bypass Graft: Yes Hx Coronary Stent: Yes Other/Comment: 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 Temperature gradient warm to cool. No pedal edema. CFT < 3sec to all digits Derm: No open lesions. Mild erythema noted to distal aspect of foot and dorsum of 2nd digit. No cellulitic changes. No maceration. Neuro: Protective sensation grossly intact to foot Ortho: Moderate pain on light palpation of left foot digits. Amputation of the 4th and 5th digit noted on the left foot. No pain on palpation of calf - Neurological Exam Neurological exam: Alert, Oriented x3 - Psychiatric Exam Psychiatric exam: Normal Affect, Normal Mood Results - Vital Signs Recent Vital Signs: Last Vital Signs Temp 98.1 F 08/13/17 13:06 Pulse 68 08/13/17 13:06 Resp 16 08/13/17 13:06 BP 110/57 L 08/13/17 13:06 Pulse Ox 97 08/13/17 13:06 - Labs Result Diagrams: 08/13/17 14:45 08/13/17 14:45 Assessment & Plan - Assessment and Plan (Free Text) Assessment: 87 y/o male seen in ED for redness and pain in his left foot secondary to PVD Plan: Patient seen and evaluated in ED Discussed plan with attending Dr. Chen Charts and vitals reviewed - afebrile No dressing applied at this time No surgical intervention planned at this time fo previous positive MRI results indicating OM Pt has completed antibiotic treatment on last visit No clinical signs of infection noted at this time Thank you for the consult
--- NOTE | 2017-08-13 14:59 | ED PDOC ---
Lower Extremity Pain/Injury Time Seen by Provider: 08/13/17 13:33 Chief Complaint (Nursing): Lower Extremity Problem/Injury Chief Complaint (Provider): Left foot pain and ulcer History Per: Patient History/Exam Limitations: no limitations Onset/Duration Of Symptoms: Other ("many months") Additional Complaint(s): Patient is an 87 y/o male with a past medical history of peripheral vascular disease, diabetes, and osteomyelitis presenting [facility] for a left foot ulcer ongoing for many months with pain only on palpation. Notes that he was admitted for a similar complaint in July 2017 in which he was diagnosed with osteomylelitis on his left foot and given antibiotics. No surgery was recommended. Denies fever, wound discharge, or other complaints. PCP: Dr. Kevyn Pereyra Barrel Roller: Dr. Mckeon Past Medical History Reviewed: Historical Data, Nursing Documentation, Vital Signs Vital Signs: Last Vital Signs Temp 98.1 F 08/13/17 13:06 Pulse 68 08/13/17 13:06 Resp 16 08/13/17 13:06 BP 110/57 L 08/13/17 13:06 Pulse Ox 97 08/13/17 13:06 - Medical History PMH: Arthritis, CAD, CHF, Diabetes, HTN, Hypercholesterolemia, Hyperlipidemia Denies: Chronic Kidney Disease - Surgical History Surgical History: CABG, Coronary Stent Denies: Pacemaker - Family History Family History: States: Unknown Family Hx - Social History Current smoker - smoking cessation education provided: No Ex-Smoker (has not smoked in the last 12 months): No Alcohol: None Drugs: Denies - Immunization History Hx Tetanus Toxoid Vaccination: No Hx Influenza Vaccination: Yes Hx Pneumococcal Vaccination: Yes - Home Medications Home Medications: Ambulatory Orders Medication Instructions Recorded Aspirin [Lo-Dose Aspirin EC] 81 mg PO DAILY 04/03/17 Clopidogrel [Plavix] 75 mg PO DAILY 04/03/17 Atorvastatin [Lipitor] 40 mg PO HS 04/07/17 Losartan [Cozaar] 50 mg PO DAILY 04/07/17 Nitroglycerin [Nitrostat] 0.4 mg PO Q5MIN PRN 04/07/17 Ranolazine [Ranexa] 500 mg PO BID 04/07/17 Gabapentin [Neurontin] 100 mg PO TID 05/30/17 Multivitamin [Multi-Vitamin Daily] 1 tab PO DAILY 05/30/17 Nebivolol [Bystolic] 10 mg PO DAILY 05/30/17 Oxybutynin [Ditropan Tab] 5 mg PO DAILY 05/30/17 hydroCHLOROthiazide [Hydrodiuril] 25 mg PO DAILY 05/30/17 rOPINIRole [Requip] 1 mg PO TID 05/30/17 SITagliptin [Januvia] 100 mg PO DAILY 06/06/17 Acetaminophen [Tylenol 325mg tab] 650 mg PO Q4 PRN 07/22/17 Acetaminophen [Tylenol 325mg tab] 650 mg PO Q4 PRN 07/22/17 Bisacodyl [Dulcolax] 10 mg RC DAILY PRN 07/22/17 Magnesium Hydroxide [Milk Of 30 ml PO HS PRN 07/22/17 Magnesia] Meropenem [Merrem IV] 1 gm IVPB DAILY #42 vial 07/30/17 Vancomycin 1 GM [Vancomycin 1GM in 1 gm IVPB DAILY #42 bag 07/30/17 Normal Saline Addvantage] - Allergies Allergies/Adverse Reactions: Allergies Allergy/AdvReac Type Severity Reaction Status Date / Time No Known Allergies Allergy Verified 05/30/17 10:12 Review of Systems ROS Statement: Except As Marked, All Systems Reviewed And Found Negative Constitutional: Negative for: Fever Musculoskeletal: Positive for: Foot Pain (left foot, with ulcer without discharge) Physical Exam - Reviewed Nursing Documentation Reviewed: Yes Vital Signs Reviewed: Yes - Physical Exam Appears: Positive for: Well, Non-toxic, No Acute Distress Head Exam: Positive for: ATRAUMATIC, NORMAL INSPECTION, NORMOCEPHALIC Skin: Positive for: Normal Color, Warm, Dry Cardiovascular/Chest: Positive for: Regular Rate, Rhythm. Negative for: Murmur Respiratory: Positive for: Normal Breath Sounds. Negative for: Accessory Muscle Use, Respiratory Distress Gastrointestinal/Abdominal: Positive for: Normal Exam, Soft. Negative for: Tenderness Extremity: Positive for: Normal ROM, Tenderness (posterior surface of left heel area), Other (healed wound ulcer of left foot). Negative for: Pedal Edema, Swelling (or discharge) Neurologic/Psych: Positive for: Alert, Oriented (x3) - Laboratory Results Result Diagrams: 08/13/17 14:45 08/13/17 14:45 - ECG O2 Sat by Pulse Oximetry: 97 (RA) Pulse Ox Interpretation: Normal Medical Decision Making Medical Decision Making: Time: 14:01 Initial impression: Left foot ulcer with known left foot osteomyelitis. Less likely, cellulitis. Initial plan: Labs Left foot X-ray Blood culture Podiatry consult Reevaluation 14:20 Patient seen by security police. Waiting for recommendation by Dr. Chen. Pt is stable for discharge with follow up. Scribe Attestation: Documented by Soraida De Oliveira, acting as a scribe for Jesús Velazco MD. Provider Scribe Attestation: All medical record entries made by the Scribe were at my direction and personally dictated by me. I have reviewed the chart and agree that the record accurately reflects my personal performance of the history, physical exam, medical decision making, and the department course for this patient. I have also personally directed, reviewed, and agree with the discharge instructions and disposition. Disposition - Clinical Impression Clinical Impression: Foot ulcer, left - Patient ED Disposition Is Patient to be Admitted: No Doctor Will See Patient In The: Office Counseled Patient/Family Regarding: Studies Performed, Diagnosis, Need For Followup - Disposition Referrals: Delta Chen DPM [Doctor Podiatric Medicine] - Peggy Mckeon MD [Staff Provider] - Disposition: Routine/Home Disposition Time: 16:41 Condition: GOOD Additional Instructions: Follow up with your PCP in 2 -3 days. Take tylenol for pain. Instructions: Diabetic Foot Ulcers (ED)
[2017-08-13 15:15] LABS: BLOOD UREA NITROGEN 18 mg/dl (9-20); CALCIUM 9.1 mg/dL (8.4-10.2); CARBON DIOXIDE 26 mmol/L (22-30); CHLORIDE 101 mmol/L (98-107); GFR AFRICAN-AMERICAN > 60; GLUCOSE,RANDOM 154 mg/dL (75-110); POTASSIUM 4.2 MMOL/L (3.6-5.0); SODIUM 135 mmol/l (132-148)
[2017-08-13 15:31] LABS: BASO # 0.1 K/uL (0.0-0.2); BASO % 1.2 % (0.0-2.0); EOS # 0.2 K/uL (0.0-0.7); EOS % 2.2 % (0.0-4.0); HEMATOCRIT 34.8 % (35.0-51.0); LYMPH % 14.7 % (20.0-40.0); MEAN CELL VOLUME 84.6 fl (80.0-94.0); MEAN CORPUSCULAR HEMOGLOBIN 27.5 pg (27.0-31.0); MEAN CORPUSCULAR HGB CONC 32.5 g/dL (33.0-37.0); MEAN PLATELET VOLUME 8.3 fl (7.2-11.7); MONO # 0.7 K/uL (0.0-0.8); MONO % 10.9 % (0.0-10.0); NEUT # 4.8 K/uL (1.8-7.0); NRBC % 0.1 % (0.0-0.0); RED CELL DISTRIBUTION WIDTH 16.7 % (11.5-14.5); WHITE BLOOD COUNT 6.8 K/uL (4.8-10.8)
--- NOTE | 2017-08-13 16:15 | RAD ---
PROCEDURE: Left Foot Radiographs. HISTORY: foot ulcer COMPARISON: 07/22/2017. FINDINGS: BONES: Findings related to prior resection 4th and 5th metatarsals. No compelling evidence for acute osteomyelitis. No evidence of acute fracture. JOINTS: Normal. SOFT TISSUES: Normal. OTHER FINDINGS: None. IMPRESSION: No acute findings related to/accounting for the clinical presentation. No significant interval change compared to the prior examination(s).
== END 2017-08-13 18:30 ==
LOC: H.ER 13:02
DX: L97.529 Non-pressure chronic ulcer of other part of left foot with unspecified severity (principal); E11.9 Type 2 diabetes mellitus without complications; E78.5 Hyperlipidemia, unspecified; I10 Essential (primary) hypertension; I25.10 Atherosclerotic heart disease of native coronary artery without angina pectoris; Z79.82 Long term (current) use of aspirin; Z95.1 Presence of aortocoronary bypass graft; Z95.5 Presence of coronary angioplasty implant and graft